=== PATIENT | female | born 1975 | race Caucasian/White ===

== ENCOUNTER → 2016-07-13 | Outpatient (REF) | payer OTHER | LOC: M SFHCLERA 11:31 | PROVIDERS: ATTEND Nurse Practitioner Family | DX: Z53.8 Procedure and treatment not carried out for other reasons (principal); J06.9 Acute upper respiratory infection, unspecified ==

== ENCOUNTER 2017-01-02 11:26 | Emergency (ER) | payer OTHER ==
[~2017-01-02] VITALS: Ht 162.6 cm; Wt 59.0 kg
[2017-01-02] MEDS ORDERED: MAGN400C2 PO (11:32)
[2017-01-02] MEDS ORDERED: AMIT10TA PO (11:32)
[2017-01-02] MEDS ORDERED: NS 1,000 ML IV ONE (13:15)
[2017-01-02] MEDS ORDERED: KETOROLAC 30 MG/ML VIAL (J1885) IV ONE (13:30)
[2017-01-02 13:51] LABS: BASO % 0.4 % (0.0-1.0); EOS # 0.2 K/mm3 (0.0-0.50); EOS % 2.7 % (0.0-3.0); LARGE UNSTAINED CELL # 0.1 K/mm3 (0.0-0.4); LARGE UNSTAINED CELL % 1.8 % (0.0-4.0); LYMPH % 30.3 % (24.0-44.0); MEAN CORPUSCULAR HEMOGLOBIN 32.3 pg (27.0-33.0); MEAN CORPUSCULAR HGB CONC 34.9 g/dl (32.0-36.5); MEAN CORPUSCULAR VOLUME 92.4 fl (80.0-96.0); MONO # 0.4 K/mm3 (0.0-0.8); MONO % 5.7 % (0.0-5.0); NEUTROPHILS # 3.8 K/mm3 (1.8-7.7); NEUTROPHILS % 59.1 % (36.0-66.0); PLATELET COUNT, AUTOMATED 213 k/mm3 (150-450); RED CELL DISTRIBUTION WIDTH 11.4 % (11.5-14.5); WHITE BLOOD COUNT 6.5 K/mm3 (4.0-10.0)
--- NOTE | 2017-01-02 14:01 | REP ---
Renal ultrasound: The kidneys are normal size. Right kidney measures 13.0 4.7 x 4.7 cm. Left kidney measures 12.8 x 7.4 x 6.2 cm. Renal cortical echogenicity is normal bilaterally. There is no right hydronephrosis. There is moderate left hydronephrosis. There are no renal calculi. No renal masses or cysts. Bladder ultrasound: With color Doppler ultrasound. There are no ureteral jets into the urinary bladder. There is a calculus in the distal right ureter at the UVJ. There is a calculus in the distal left ureter at the UVJ. No bladder wall polyps or masses are identified. Impression: There is a calculus in the distal right ureter at the UVJ and there is a calculus in the distal left ureter at the UVJ. There is moderate left hydronephrosis. There is no right hydronephrosis. Signed by Erasto Aguila MD 01/02/2017 01:52 P
[2017-01-02 14:24] LABS: ANION GAP 11 MEQ/L (8-16); BLOOD UREA NITROGEN 11 MG/DL (7-18); CALCIUM LEVEL 8.8 MG/DL (8.5-10.1); CARBON DIOXIDE LEVEL 24 MEQ/L (21-32); CHLORIDE LEVEL 106 MEQ/L (98-107); CREATININE FOR GFR 0.58 MG/DL (0.55-1.02); GLOMERULAR FILTRATION RATE > 60.0 (>58); GLUCOSE, FASTING 75 MG/DL (70-105); POTASSIUM SERUM 3.9 MEQ/L (3.5-5.1); SODIUM LEVEL 141 MEQ/L (136-145)
[2017-01-02] MEDS ORDERED: FLOM5CAP PO (14:50)
[2017-01-02] MEDS ORDERED: ZOFR4TAB3 PO (14:50)
[2017-01-02] MEDS ORDERED: NORCOTAB PO (14:50)
[2017-01-02] MEDS ORDERED: TAMSULOSIN 0.4 MG CAP PO ONE (15:00)
[2017-01-02 15:11] VITALS: BP 136/94
== END 2017-01-02 15:12 | disposition home or self-care (01) ==
LOC: M ED 11:26
DX: N20.1 Calculus of ureter (principal); F41.9 Anxiety disorder, unspecified; F32.9 Major depressive disorder, single episode, unspecified; Z79.899 Other long term (current) drug therapy; Z88.0 Allergy status to penicillin; Z88.5 Allergy status to narcotic agent
CPT/HCPCS: 76775; 80048; 81001; 81025; 85025; 96361; 96374; 99284; J1885

== ENCOUNTER 2017-01-08 22:48 | Emergency (ER) | payer OTHER ==
[~2017-01-08] VITALS: Ht 162.6 cm; Wt 59.0 kg
[~2017-01-08 22:48] MED LIST: AMIT10TA PO; FLOM5CAP PO; MAGN400C2 PO; NORCOTAB PO; ZOFR4TAB3 PO
[2017-01-09] MEDS ORDERED: predniSONE 20 MG TAB PO ONE
[2017-01-09] MEDS ORDERED: CIPR-249 PO (02:21)
[2017-01-09 02:31] VITALS: BP 143/79
== END 2017-01-09 02:33 | disposition home or self-care (01) ==
LOC: M ED 22:48
DX: L29.9 Pruritus, unspecified (principal); T36.95XA Adverse effect of unspecified systemic antibiotic, initial encounter; X58.XXXA Exposure to other specified factors, initial encounter; Y92.89 Other specified places as the place of occurrence of the external cause; Z79.899 Other long term (current) drug therapy

== ENCOUNTER → 2017-01-10 | Outpatient (REF) | payer OTHER ==
[~2017-01-10] MED LIST changes: +BACT800T5 PO; +CIPR-249 PO; +CIPR500T3 PO; +MULT1TAB18 PO; +TYLE650T35 PO; +VITATAB11 PO
[2017-01-10 14:16] LABS: CALCIUM OXALATE CRYSTALS LARGE
== END ==
LOC: M LAB REF 13:54
PROVIDERS: ATTEND Nurse Practitioner Women's Health
DX: N13.2 Hydronephrosis with renal and ureteral calculous obstruction (principal)

== ENCOUNTER → 2017-01-16 | Outpatient (REF) | payer OTHER ==
[2017-01-16 19:58] LABS: ANION GAP 8 MEQ/L (8-16); BLOOD UREA NITROGEN 12 MG/DL (7-18); CALCIUM LEVEL 9.4 MG/DL (8.5-10.1); CARBON DIOXIDE LEVEL 28 MEQ/L (21-32); CHLORIDE LEVEL 104 MEQ/L (98-107); CREATININE FOR GFR 0.73 MG/DL (0.55-1.02); GLOMERULAR FILTRATION RATE > 60.0 (>58); GLUCOSE, FASTING 74 MG/DL (70-105); POTASSIUM SERUM 4.9 MEQ/L (3.5-5.1); SODIUM LEVEL 140 MEQ/L (136-145)
[2017-01-16 19:59] LABS: CONTROL LINE HCG INT CTR LINE PRESENT
[2017-01-16 20:00] LABS: MEAN CORPUSCULAR HEMOGLOBIN 32.4 pg (27.0-33.0); MEAN CORPUSCULAR HGB CONC 34.7 g/dl (32.0-36.5); MEAN CORPUSCULAR VOLUME 93.6 fl (80.0-96.0); RED CELL DISTRIBUTION WIDTH 11.8 % (11.5-14.5)
[2017-01-16 20:01] LABS: INR 0.96
== END ==
LOC: M SMT 15:34
PROVIDERS: ATTEND Nurse Practitioner Women's Health
DX: Z01.812 Encounter for preprocedural laboratory examination (principal); N13.2 Hydronephrosis with renal and ureteral calculous obstruction

== ENCOUNTER 2017-01-21 14:05 | Day surgery (SDC) | payer OTHER ==
[~2017-01-21 14:05] MED LIST changes: -BACT800T5 PO; -CIPR500T3 PO; +CLINDAMYCIN 900 MG in APPROPRIATE DILUENT 1 EA IV ONE; -MULT1TAB18 PO; -TYLE650T35 PO; -VITATAB11 PO
[2017-01-21] MEDS ORDERED: VITATAB11 PO (14:37)
[2017-01-21] MEDS ORDERED: BACT800T5 PO ×2 (14:37→19:52)
[2017-01-21] MEDS ORDERED: MULT1TAB18 PO (14:37)
[2017-01-21] MEDS ORDERED: CONRAY-60 60% 50ML VIAL (Q9961) As Ordered ONE (15:46)
[2017-01-21] MEDS ORDERED: LR 1,000 ML IV ONE (17:15)
[2017-01-21] MEDS ORDERED: LIDOCAINE 2% INJ 100 MG/5 ML SDV (FOR ANES.) As Ordered ONE (17:45)
[2017-01-21] MEDS ORDERED: MIDAZOLAM INJ 2 MG/2 ML VIAL (J2250) As Ordered ONE (17:45)
[2017-01-21] MEDS ORDERED: ONDANSETRON 4MG/2ML VIAL (J2405) As Ordered ONE (17:45)
[2017-01-21] MEDS ORDERED: dexameTHASONE 4 MG/ML 1ML VIAL (J1100) As Ordered ONE (17:45)
[2017-01-21] MEDS ORDERED: fentaNYL 100 MCG/2 ML INJECTION (J3010) As Ordered ONE (17:45)
[2017-01-21] MEDS ORDERED: PROPOFOL 200 MG/20 ML VIAL As Ordered ONE (17:45)
[2017-01-21] MEDS ORDERED: ePHEDrine SULFATE 25 MG/5 ML(5MG/ML) SYRINGE As Ordered ONE (17:57)
[2017-01-21] MEDS ORDERED: KETOROLAC 60 MG/2 ML VIAL (J1885) As Ordered ONE (18:16)
--- NOTE | 2017-01-21 18:38 | REP ---
Clinical: Obstructing ureteral calculi. Technique: Real time intraoperative fluoroscopic imaging. Findings: Multiple fluoroscopic images demonstrate bilateral hydroureteronephrosis (left greater than right) and satisfactory bilateral ureteral stent placement. Total fluoroscopic time 1 minute 3 seconds. Impression: Status post bilateral ureteral stent placement. Signed by Jonathan Morton MD 01/21/2017 06:30 P
[2017-01-21] MEDS ORDERED: ONDANSETRON 4MG/2ML VIAL (J2405) IV PRN (18:45)
[2017-01-21] MEDS ORDERED: fentaNYL 100 MCG/2 ML INJECTION (J3010) IV PRN (18:45)
[2017-01-21] MEDS ORDERED: LR 1,000 ML IV SCH (18:45)
[2017-01-21] MEDS ORDERED: PERCOCET 5MG/325MG TAB PO PRN (18:45)
[2017-01-21] MEDS ORDERED: CIPR500T3 PO (18:49)
[2017-01-21] MEDS ORDERED: TYLE650T35 PO (18:49)
[2017-01-21 19:40] VITALS: BP 135/88
--- NOTE | 2017-01-22 09:06 | RO ---
DATE OF PROCEDURE: 01/21/2017 PREOPERATIVE DIAGNOSIS: Bilateral ureteral stones. POSTOPERATIVE DIAGNOSIS: Bilateral ureteral stones. SURGERY PERFORMED: Cystoscopy, plus bilateral retrograde pyelogram, plus bilateral ureteroscopy, plus bilateral basket extraction of stones, plus bilateral JJ-stent placement #6 [place] Cook stents. SURGEON: Dr. Johny Saldana CAFETERIA MANAGER: None. ANESTHESIA: General. COMPLICATIONS: None. ESTIMATED BLOOD LOSS: N/A. HISTORY OF PRESENT ILLNESS: This is a 41-year-old female patient that has bilateral kidney stones and a history of bilateral ureteral implantations back when she was a child. For this reason, she has consented for a cystoscopy, possible bilateral retrograde pyelogram, possible bilateral ureteroscopy, possible bilateral laser stone lithotripsy, possible basket extraction of stones, possible bilateral JJ stent placement. PROCEDURE DESCRIPTION: In a patient under general anesthesia in supine modified low lithotomy position after prepping and draping the area of concern, which included the entire genitalia and abdomen, we started by introducing a cystoscope 21 [place]an in diameter under video endoscopic guidance with a 30 degree lens. The urethra and bladder neck were totally normal. The bladder had no tumors, no stones, no foreign objects. Both ureteral orifices were seen. We then placed a 5 [place] Pollack catheter to the left ureteral orifice and did a retrograde pyelogram. You could see a stone in the distal ureter. At that moment in time, we passed a guidewire up to the kidney, took the Pollack catheter out, took the cystoscope out, and passed a semi-rigid ureteroscope up to the stone. With a 1.9 ZeroTip basket, we grabbed the stone and pulled it out of the body of the patient and sent it for biochemical analysis. We then proceeded to pass a ureteral access sheath 28 cm in length 12 [place] in diameter following the guidewire. We took the obturator out. We left the ureteral access sheath in the proximal ureter and the guidewire parallel to this one. Through that ureteral access sheath, we inserted a flexible ureteroscope and then performed a nephroscopy. Upper pole, mid pole and lower pole were actively explored. There were no stones left behind. We then did a retrograde ureteroscopy by pulling out the ureteroscope and ureteral access sheath. There were no stones in the ureter. At that moment in time, we placed the cystoscope back in again and following the guidewire we placed a 6 [place] Cook stent up to the kidney. Once it was in good position, we took the guide wire out. We could see the curl in the kidney and the curl in the bladder. We then proceeded to pass a 5 [place] Pollack catheter through the right ureteral orifice. We did a retrograde pyelogram. We could find a stone in the distal ureter. At that moment in time, passed a guidewire up to the kidney, took the Pollack catheter out and we then proceeded to remove the cystoscope and introduce a semi-rigid ureteroscope 7 [place]an in diameter under video endoscopic guidance. We entered the ureter parallel to the guidewire and found the stone. We grabbed the stone with the ZeroTip basket and pulled it out of the body of the patient. It was sent in a different container for biochemical analysis of right ureteral stone. We then proceeded to remove the semi-rigid ureteroscope and pass a ureteral access sheath up to the proximal ureter. We took out the obturator and we actively passed another flexible ureteroscope up to the kidney. Upper pole, mid pole and lower pole were examined with fluoroscopic guidance and also with endoscopic guidance with the flexible ureteroscope. There were no stones left. We then proceeded to do a formal ureteroscopy by removing the ureteroscope with the ureteral access sheath at the same time. There was no stones left behind in the right ureter. We then proceeded to actively to pass a cystoscope 21 [place]an in diameter following the guidewire on the right side. We passed another stent 6 [place] Cook. Once it was in good position, we took the guidewire out. We could see the curl in the kidney and the curl in the bladder. We then proceeded to empty the bladder and remove the cystoscope. PLAN: The patient will pass to recovery and then to the floor. She will go home today with antibiotic and pain medication and follow up at [facility] in 1-2 weeks to remove the JJ-stents. There were no complications. Both stones were sent for biochemical analysis.
== END 2017-01-21 19:50 | disposition home or self-care (01) ==
LOC: M SDC 14:05
PROVIDERS: ATTEND Urology
DX: N20.1 Calculus of ureter (principal); I35.1 Nonrheumatic aortic (valve) insufficiency; Z88.0 Allergy status to penicillin; Z88.1 Allergy status to other antibiotic agents; Z98.84 Bariatric surgery status; Z87.09 Personal history of other diseases of the respiratory system; Z86.79 Personal history of other diseases of the circulatory system
CPT/HCPCS: 52332; 52352; 74420; 82360; 88300; C1769; C1894; C2617; J1100; J1885; J2250; J2405; J3010; Q9961

== ENCOUNTER → 2017-07-10 | Outpatient (REF) | payer OTHER | LOC: M SFHCLUC 11:30 | DX: R53.81 Other malaise (principal) ==

== ENCOUNTER → 2017-07-21 | Outpatient (CLI) | payer OTHER | LOC: M RAD 12:57 | DX: Z12.31 Encounter for screening mammogram for malignant neoplasm of breast (principal) ==

== ENCOUNTER → 2017-12-29 | Outpatient (CLI) | payer OTHER | LOC: M LRY 11:11 | DX: S99.922A Unspecified injury of left foot, initial encounter (principal); M79.89 Other specified soft tissue disorders; X58.XXXA Exposure to other specified factors, initial encounter; Y92.9 Unspecified place or not applicable; M77.32 Calcaneal spur, left foot | CPT/HCPCS: 73630 ==

== ENCOUNTER → 2018-03-19 | Outpatient (CLI) | payer OTHER ==
[2018-03-19 07:57] LABS: BASO % 0.4 % (0.0-1.0); EOS # 0.2 10^3/uL (0.0-0.50); EOS % 3.3 % (0.0-3.0); IMMATURE GRANULOCYTE % 0.2 % (0-3.0); LYMPH # 1.8 10^3/uL (1.5-4.5); LYMPH % 39.1 % (24.0-44.0); MEAN CORPUSCULAR HEMOGLOBIN 32.2 pg (27.0-33.0); MEAN CORPUSCULAR HGB CONC 34.1 g/dl (32.0-36.5); MEAN CORPUSCULAR VOLUME 94.3 fl (80.0-96.0); MONO # 0.3 10^3/uL (0.0-0.8); MONO % 5.5 % (0.0-5.0); NEUTROPHILS # 2.4 10^3/uL (1.8-7.7); NEUTROPHILS % 51.5 % (36.0-66.0); PLATELET COUNT, AUTOMATED 187 10^3/uL (150-450); RED BLOOD COUNT 4.35 10^6/uL (4.00-5.40); RED CELL DISTRIBUTION WIDTH 11.6 % (11.5-14.5); WHITE BLOOD COUNT 4.6 10^3/uL (4.0-10.0)
[2018-03-19 08:29] LABS: ALT/SGPT 17 U/L (12-78); ANION GAP 6 MEQ/L (8-16); AST/SGOT 10 U/L (7-37); BLOOD UREA NITROGEN 10 MG/DL (7-18); CALCIUM LEVEL 8.5 MG/DL (8.5-10.1); CARBON DIOXIDE LEVEL 27 MEQ/L (21-32); CHLORIDE LEVEL 109 MEQ/L (98-107); CHOLESTEROL LEVEL 155 MG/DL (<200); CHOLESTEROL RISK RATIO 2.246 (<5); CPK CREATINE PHOSPHOKINASE 52 U/L (26-192); FREE T4 1.13 NG/DL (0.76-1.46); GLOMERULAR FILTRATION RATE > 60.0 (>58); GLUCOSE, FASTING 83 MG/DL (70-100); HDL CHOLESTEROL 69 MG/DL (>40); LDL CHOLESTEROL 74 MG/DL (<100); NON-HDL-C 86 MG/DL; POTASSIUM SERUM 4.1 MEQ/L (3.5-5.1); SODIUM LEVEL 142 MEQ/L (136-145); TRIGLYCERIDES LEVEL 61 MG/DL (<150)
== END ==
LOC: M LAB 07:24
DX: R00.2 Palpitations (principal); R60.9 Edema, unspecified; R07.89 Other chest pain
CPT/HCPCS: 84460

== ENCOUNTER → 2018-03-23 | Outpatient (CLI) | payer OTHER | LOC: M LRY 10:02 | DX: S99.921A Unspecified injury of right foot, initial encounter (principal); X58.XXXA Exposure to other specified factors, initial encounter; Y92.9 Unspecified place or not applicable; M77.31 Calcaneal spur, right foot; M85.871 Other specified disorders of bone density and structure, right ankle and foot | CPT/HCPCS: 73630 ==

== ENCOUNTER → 2018-04-06 | Outpatient (CLI) | payer OTHER | LOC: M LRY 09:09 | DX: J18.1 Lobar pneumonia, unspecified organism (principal) | CPT/HCPCS: 71046 ==

== ENCOUNTER → 2018-07-17 | Outpatient (REF) | payer OTHER ==
[~2018-07-17] MED LIST changes: +BACT800T5 PO; +CIPR500T3 PO; -CLINDAMYCIN 900 MG in APPROPRIATE DILUENT 1 EA IV ONE; +FLOM0.4C39 PO; -FLOM5CAP PO; +MULT1TAB18 PO; +TYLE650T35 PO; +VITATAB11 PO; +ZOFR4TAB14 PO; -ZOFR4TAB3 PO
== END ==
LOC: M SFHCLERA 14:04
PROVIDERS: ATTEND Nurse Practitioner Family
DX: N30.00 Acute cystitis without hematuria (principal)

== ENCOUNTER → 2018-07-20 | Outpatient (CLI) | payer OTHER ==
--- NOTE | 2018-07-20 18:37 | REP ---
Clinical: Cough . Comparison: 04/06/2018 in the . Technique: PA and lateral. Findings: The mediastinum and cardiac silhouette are normal. The lung nieto are clear and without acute consolidation, effusion, or pneumothorax. The skeletal structures are intact and normal. Impression: 1. No acute cardiopulmonary process. Electronically Signed by Jonathan Morton MD 07/20/2018 06:28 P
== END ==
LOC: M LRY 11:46
PROVIDERS: ATTEND Nurse Practitioner Family
DX: R05 Cough (principal)

== ENCOUNTER → 2018-07-28 | Outpatient (REF) | payer OTHER | LOC: M SFHCLERA 20:18 | PROVIDERS: ATTEND Nurse Practitioner Family | DX: J02.9 Acute pharyngitis, unspecified (principal); N30.01 Acute cystitis with hematuria ==

== ENCOUNTER → 2018-09-17 | Outpatient (REF) | payer OTHER ==
[~2018-09-17] MED LIST changes: +HYDR-3715 PO; -NORCOTAB PO
== END ==
LOC: M SFHCLERA 09:59
PROVIDERS: ATTEND Family Medicine
DX: R53.82 Chronic fatigue, unspecified (principal); Z98.84 Bariatric surgery status; Z53.9 Procedure and treatment not carried out, unspecified reason

== ENCOUNTER → 2018-09-18 | Outpatient (CLI) | payer OTHER ==
[2018-09-18 08:04] LABS: BASO % 0.8 % (0.0-1.0); EOS # 0.1 10^3/uL (0.0-0.50); EOS % 2.2 % (0.0-3.0); HEMATOCRIT 39.4 % (36.0-47.0); HEMOGLOBIN 13.5 g/dl (12.0-15.5); LYMPH # 1.9 10^3/uL (1.5-4.5); LYMPH % 37.7 % (24.0-44.0); MEAN CORPUSCULAR HEMOGLOBIN 31.3 pg (27.0-33.0); MEAN CORPUSCULAR HGB CONC 34.3 g/dl (32.0-36.5); MEAN CORPUSCULAR VOLUME 91.2 fl (80.0-96.0); MONO # 0.3 10^3/uL (0.0-0.8); MONO % 4.9 % (0.0-5.0); NEUTROPHILS # 2.8 10^3/uL (1.8-7.7); NEUTROPHILS % 54.2 % (36.0-66.0); PLATELET COUNT, AUTOMATED 231 10^3/uL (150-450); RED BLOOD COUNT 4.32 10^6/uL (4.00-5.40); WHITE BLOOD COUNT 5.1 10^3/uL (4.0-10.0)
[2018-09-18 08:28] LABS: ERYTHROCYTE SEDIMENTATION RATE 8 mm/hr (0-20)
[2018-09-18 08:39] LABS: ALBUMIN 3.8 GM/DL (3.2-5.2); ALT/SGPT 21 U/L (12-78); BILIRUBIN,TOTAL 0.5 MG/DL (0.2-1.0); BLOOD UREA NITROGEN 10 MG/DL (7-18); C REACTIVE PROTEIN QUANTITATIV < 0.30 MG/DL (0.00-0.30); CALCIUM LEVEL 8.7 MG/DL (8.5-10.1); CARBON DIOXIDE LEVEL 27 MEQ/L (21-32); CHLORIDE LEVEL 109 MEQ/L (98-107); CREATININE FOR GFR 0.55 MG/DL (0.55-1.30); FREE T4 1.13 NG/DL (0.76-1.46); GLOMERULAR FILTRATION RATE > 60.0 (>58); GLUCOSE, FASTING 78 MG/DL (70-100); POTASSIUM SERUM 4.2 MEQ/L (3.5-5.1); SODIUM LEVEL 141 MEQ/L (136-145); TOTAL PROTEIN 6.5 GM/DL (6.4-8.2)
[2018-09-18 09:16] LABS: TOTAL 25(OH) VITAMIN D 28.1 NG/ML (30.0-100.0); VITAMIN B12 LEVEL 494 PG/ML
[2018-09-18 09:17] LABS: FOLATE 22.1 NG/ML
[2018-09-20 10:17] LABS: COPPER PLASMA 98 ug/dL (72-166); ZINC PLASMA 91 ug/dL (56-134)
== END ==
LOC: M LAB 07:08
PROVIDERS: ATTEND Family Medicine
DX: R53.82 Chronic fatigue, unspecified (principal); Z98.84 Bariatric surgery status

== ENCOUNTER → 2018-09-29 | Outpatient (CLI) | payer OTHER ==
--- NOTE | 2018-09-29 08:29 | REP ---
MRI BRAIN WITHOUT CONTRAST: HISTORY: Vertigo. Multiple areas of increased signal intensity on T2-weighted images are present in the periventricular and subcortical white matter. These are predominately subcortical in location. There are no areas of abnormal signal intensity in the corpus callosum, brain stem or cerebellum. There is no intraparenchymal hemorrhage, infarct, mass or midline shift. The ventricular system is normal in appearance. There is no extracerebral collection. Mucosal thickening is present in the sinuses. IMPRESSION: There are multiple areas of increased signal intensity in the periventricular and subcortical white matter that are predominately subcortical in location. This is a nonspecific finding and can be seen in conditions such as migraine, collagen vascular disease, Lyme disease, sarcoid, B12 deficiency, vasculitis and atypical demyelinating disease. Electronically Signed by Lazarus Valentin MD 09/29/2018 08:40 A
== END ==
LOC: M RAD 06:29
PROVIDERS: ATTEND Family Medicine
DX: R93.0 Abnormal findings on diagnostic imaging of skull and head, not elsewhere classified (principal)

== ENCOUNTER → 2018-10-05 | Outpatient (CLI) | payer OTHER ==
[2018-10-08 00:06] LABS: ANGIOTENSIN 1 CONVERTING ENZYM 32 U/L (14-82); Lyme Disease IgG/IgM Antibodie <0.91 ISR (0.00-0.90); Lyme Disease IgM Ab Quantitati <0.80 index (0.00-0.79)
== END ==
LOC: M LAB 17:42
PROVIDERS: ATTEND Family Medicine
DX: R42 Dizziness and giddiness (principal)

== ENCOUNTER → 2019-01-14 | Outpatient (CLI) | payer OTHER ==
[2019-01-16 15:01] LABS: HPV HYBRID CAPTURE II Negative (Negative)
== END ==
LOC: M SMT 09:55
PROVIDERS: ATTEND Advanced Practice Midwife
DX: Z13.79 Encounter for other screening for genetic and chromosomal anomalies (principal)
CPT/HCPCS: 36415; 87624; G0123

== ENCOUNTER → 2019-01-21 | Outpatient (CLI) | payer OTHER ==
--- NOTE | 2019-01-22 07:44 | REPMRS ---
Patient History The patient states she had a clinical breast exam in 2018. Family history of unknown cancer in mother, colorectal cancer in paternal grandmother, colorectal cancer in paternal uncle, colorectal cancer in maternal aunt. Silicone gel implants in both breasts in 2014. Digital Mammo Screening Bilat: January 21, 2019 - Exam #: [id number] Bilateral CC and MLO view(s) were taken. Technologist: Fern Valladares, Technologist Prior study comparison: July 21, 2017, bilateral digital mammo screening bilat performed at [facility]. November 29, 2013, digital woman screen mammo, performed at [facility]. FINDINGS: There are scattered fibroglandular densities. The visualized implant margins are smooth. Breast parenchymal density pattern is essentially symmetric. No dominant mass, grouped microcalcification, or architectural distortion is evident on either side. 3-D tomosynthesis shows no additional findings. No significant changes when compared with prior studies. Assessment: BI-RADS/ACR category 2 mammogram. Benign Findings. Recommendation Routine screening mammogram of both breasts in 1 year (for women over age 40). This patient's Lifetime Breast Cancer RIsk is estimated at 6.5 %. This mammogram was interpreted with the aid of an FDA-approved computer-aided dectection system. Electronically Signed By: Erwin Worrell MD 01/22/19 0744
== END ==
LOC: M RAD 15:01
PROVIDERS: ATTEND Advanced Practice Midwife
DX: Z12.31 Encounter for screening mammogram for malignant neoplasm of breast (principal)

== ENCOUNTER → 2019-01-29 | Outpatient (REF) | payer OTHER ==
[2019-01-29 18:01] LABS: ALBUMIN 3.9 GM/DL (3.2-5.2); ALT/SGPT 18 U/L (12-78); BILIRUBIN,TOTAL 0.5 MG/DL (0.2-1.0); BLOOD UREA NITROGEN 10 MG/DL (7-18); CALCIUM LEVEL 9.3 MG/DL (8.5-10.1); CARBON DIOXIDE LEVEL 30 MEQ/L (21-32); CHLORIDE LEVEL 107 MEQ/L (98-107); CREATININE FOR GFR 0.64 MG/DL (0.55-1.30); GLOMERULAR FILTRATION RATE > 60.0 (>58); GLUCOSE, FASTING 62 MG/DL (70-100); POTASSIUM SERUM 4.6 MEQ/L (3.5-5.1); SODIUM LEVEL 142 MEQ/L (136-145); TOTAL PROTEIN 7.2 GM/DL (6.4-8.2)
[2019-01-29 18:15] LABS: AMORPHOUS SEDIMENT SMALL (NEGATIVE); APPEARANCE, URINE CLEAR (CLEAR); BACTERIA, URINE AUTO 3+ (NEGATIVE); BILIRUBIN, URINE AUTO NEGATIVE (NEGATIVE); BLOOD, URINE BLOOD NEGATIVE (NEGATIVE); COLOR, URINE YELLOW (YELLOW); GLUCOSE, URINE (UA) AUTO NEGATIVE (NEGATIVE); KETONE, URINE AUTO NEGATIVE (NEGATIVE); LEUKOCYTE ESTERASE, URINE AUTO 1+ (NEGATIVE); MUCUS, URINE SMALL (NEGATIVE); NITRITE, URINE AUTO NEGATIVE (NEGATIVE); PROTEIN, URINE AUTO NEGATIVE (NEGATIVE); RBC, URINE AUTO 1 /HPF (0-3); SPECIFIC GRAVITY URINE AUTO 1.012 (1.002-1.035); SQUAMOUS EPITHELIAL CELL UR AU 0 /HPF (0-6); UROBILINOGEN, URINE AUTO 0.2 mg/dL (0.0-2.0); WBC, URINE AUTO 6 /HPF (0-3)
== END ==
LOC: M SFHCLERA 10:46
PROVIDERS: ATTEND Family Medicine
DX: R10.11 Right upper quadrant pain (principal); M54.9 Dorsalgia, unspecified

== ENCOUNTER → 2019-02-04 | Outpatient (REF) | payer OTHER ==
[2019-02-04 12:24] LABS: APPEARANCE, URINE CLEAR (CLEAR); BACTERIA, URINE AUTO 1+ (NEGATIVE); BILIRUBIN, URINE AUTO NEGATIVE (NEGATIVE); BLOOD, URINE BLOOD NEGATIVE (NEGATIVE); COLOR, URINE YELLOW (YELLOW); GLUCOSE, URINE (UA) AUTO NEGATIVE (NEGATIVE); KETONE, URINE AUTO NEGATIVE (NEGATIVE); LEUKOCYTE ESTERASE, URINE AUTO 2+ (NEGATIVE); NITRITE, URINE AUTO NEGATIVE (NEGATIVE); PROTEIN, URINE AUTO NEGATIVE (NEGATIVE); RBC, URINE AUTO 1 /HPF (0-3); SPECIFIC GRAVITY URINE AUTO 1.006 (1.002-1.035); SQUAMOUS EPITHELIAL CELL UR AU 0 /HPF (0-6); UROBILINOGEN, URINE AUTO 0.2 mg/dL (0.0-2.0); WBC, URINE AUTO 11 /HPF (0-3)
== END ==
LOC: M SFHCLERA 11:24
PROVIDERS: ATTEND Family Medicine
DX: M54.9 Dorsalgia, unspecified (principal)

== ENCOUNTER → 2019-02-09 | Outpatient (CLI) | payer OTHER ==
--- NOTE | 2019-02-10 07:32 | REP ---
Clinical: Right upper quadrant pain. Technique: Real time espinoza scale and color evaluation using curved array transducer. Findings: Liver, spleen, pancreas are normal in contour, size, echogenicity, and overall appearance without focal hepatic, splenic, or pancreatic lesions identified. Splenic index equals 341. Gallbladder is normal and without gallstones, wall thickening, or pericholecystic fluid. No biliary ductal dilatation is appreciated and the common bile duct measures 2.7 mm diameter. The bilateral kidneys are normal in reniform shape without hydronephrosis. Right kidney measures 12.0 x 6.4 x 4.9 cm. Left kidney measures 11.1 x 4.9 x 5.2 cm. Abdominal aorta measures 2.0 cm maximal diameter and appears normal. No ascites visualized. Impression: Normal complete abdominal ultrasound. Electronically Signed by Jonathan Morton MD 02/10/2019 07:23 A
== END ==
LOC: M RAD 09:02
PROVIDERS: ATTEND Family Medicine
DX: R10.11 Right upper quadrant pain (principal); M54.9 Dorsalgia, unspecified

== ENCOUNTER → 2019-04-28 | Outpatient (CLI) | payer OTHER ==
[~2019-04-28] MED LIST changes: +ISOVUE-370 76% 100ML VIAL (Q9967) As Ordered ONE
--- NOTE | 2019-04-28 14:18 | REP ---
Intracranial CTA: 04/28/2019. Indication: Dizziness. Comparison: None. Technique: High resolution axial images of the intracranial circulation were performed following IV administration of 75 ml Isovue 370. Sagittal, coronal and 3-D reconstructions were provided. Findings: There is no intracranial high-grade stenosis, vessel occlusion, aneurysm or AVM. Predominantly origin of the right UX DESIGNER is noted. Paranasal sinus mucosal disease is present including evidence of acute inflammation within the left maxillary sinus. Impression: Unremarkable intracranial CTA. Paranasal sinus mucosal disease. Electronically Signed by Steven Sim DO 04/28/2019 02:10 P
== END ==
LOC: M RAD 13:17
DX: R42 Dizziness and giddiness (principal)
CPT/HCPCS: 70496; Q9967

== ENCOUNTER → 2019-08-31 | Outpatient (CLI) | payer OTHER ==
[~2019-08-31] MED LIST changes: -ISOVUE-370 76% 100ML VIAL (Q9967) As Ordered ONE
--- NOTE | 2019-09-01 17:02 | REP ---
Clinical: Left renal cyst. Technique: Real time espinoza scale ultrasound examination using curved array transducer. Findings: Right kidney is normal in contour, size, echogenicity, and reniform shape without hydronephrosis, nephrolithiasis, cystic or renal mass lesion. Kidney measures 10.8 x 6.0 x 3.8 cm. Left kidney is normal in contour, size, echogenicity and reniform shape without hydronephrosis, nephrolithiasis or renal mass lesion. A small 7 mm simple upper pole cyst is suggested (versus a focally prominent upper pole calyx). Kidney measures 9.6 x 4.0 x 5.0 cm. Bladder is normal and measures 6.3 x 5.0 x 2.7 cm. Impression: 1. Possible simple 7 mm left upper pole renal cyst versus a focally dilated calyx. Essentially normal renal ultrasound examination. Electronically Signed by Jonathan Morton MD 09/01/2019 04:53 P
== END ==
LOC: M RAD 10:46
PROVIDERS: ATTEND Family Medicine
DX: N28.1 Cyst of kidney, acquired (principal)

== ENCOUNTER → 2019-12-29 | Outpatient (REF) | payer OTHER ==
[~2019-12-29] MED LIST changes: +ACET650T61 PO; -TYLE650T35 PO
[2020-02-11 22:05] LABS: BLOOD UREA NITROGEN 11 MG/DL (7-18); CALCIUM LEVEL 9.1 MG/DL (8.5-10.1); CARBON DIOXIDE LEVEL 29 MEQ/L (21-32); CHLORIDE LEVEL 106 MEQ/L (98-107); CREATININE FOR GFR 0.73 MG/DL (0.55-1.30); GLOMERULAR FILTRATION RATE > 60.0 (>58); GLUCOSE, FASTING 78 MG/DL (70-100); POTASSIUM SERUM 4.5 MEQ/L (3.5-5.1); SODIUM LEVEL 139 MEQ/L (136-145)
== END ==
LOC: M PLALAB 15:51
PROVIDERS: ATTEND Family Medicine Sports Medicine
DX: I49.5 Sick sinus syndrome (principal); I10 Essential (primary) hypertension

== ENCOUNTER → 2019-12-29 | Outpatient (REF) | payer OTHER ==
[2020-02-11 22:04] LABS: CHOLESTEROL RISK RATIO 2.464 (<5)
== END ==
LOC: M PLALAB 15:48
PROVIDERS: ATTEND Nurse Practitioner Adult Health
DX: R00.1 Bradycardia, unspecified (principal); Z82.41 Family history of sudden cardiac death

== ENCOUNTER → 2020-02-15 | Outpatient (CLI) | payer OTHER ==
[2020-02-15 09:11] LABS: BLOOD UREA NITROGEN 10 MG/DL (7-18); CALCIUM LEVEL 8.8 MG/DL (8.5-10.1); CARBON DIOXIDE LEVEL 28 MEQ/L (21-32); CHLORIDE LEVEL 109 MEQ/L (98-107); CREATININE FOR GFR 0.63 MG/DL (0.55-1.30); FREE T4 1.09 NG/DL (0.76-1.46); GLOMERULAR FILTRATION RATE > 60.0 (>58); GLUCOSE, FASTING 79 MG/DL (70-100); POTASSIUM SERUM 4.2 MEQ/L (3.5-5.1); SODIUM LEVEL 142 MEQ/L (136-145)
== END ==
LOC: M LAB 07:33
PROVIDERS: ATTEND Internal Medicine Cardiovascular Disease
DX: E78.2 Mixed hyperlipidemia (principal); Z71.3 Dietary counseling and surveillance; I71.2 Thoracic aortic aneurysm, without rupture

== ENCOUNTER → 2020-03-16 | Outpatient (CLI) | payer OTHER ==
[2020-03-16 09:58] LABS: BLOOD UREA NITROGEN 11 MG/DL (7-18); CALCIUM LEVEL 8.7 MG/DL (8.5-10.1); CARBON DIOXIDE LEVEL 30 MEQ/L (21-32); CHLORIDE LEVEL 108 MEQ/L (98-107); CREATININE FOR GFR 0.69 MG/DL (0.55-1.30); GLOMERULAR FILTRATION RATE > 60.0 (>58); GLUCOSE, FASTING 83 MG/DL (70-100); POTASSIUM SERUM 4.4 MEQ/L (3.5-5.1); SODIUM LEVEL 141 MEQ/L (136-145)
== END ==
LOC: M LAB 08:33
PROVIDERS: ATTEND Internal Medicine Cardiovascular Disease
DX: I10 Essential (primary) hypertension (principal)

== ENCOUNTER → 2020-04-25 | Outpatient (CLI) | payer OTHER ==
--- NOTE | 2020-04-25 13:09 | REPMRS ---
Patient History The patient states she had a clinical breast exam in April 2020. Family history of unknown cancer in mother, colorectal cancer in paternal grandmother, colorectal cancer in paternal uncle, colorectal cancer in maternal aunt. Retro-pectoral implants. Silicone gel implants in both breasts. Digital Woman Screen Mammo: April 25, 2020 - Exam #: [id number] Bilateral CC and MLO view(s) were taken. Technologist: Shila Boss Technologist Prior study comparison: January 21, 2019, bilateral digital mammo screening bilat, performed at [facility]. July 21, 2017, bilateral digital mammo screening bilat, performed at [facility]. FINDINGS: The breast tissue is heterogeneously dense. This may lower the sensitivity of mammography. The visualized implant margins are smooth. Breast parenchymal density pattern is essentially symmetric. No dominant mass, grouped microcalcification, or architectural distortion is evident on either side. 3-D tomosynthesis shows no additional findings. No significant changes when compared with prior studies. Assessment: BI-RADS/ACR category 2 mammogram. Benign Findings. Recommendation Routine screening mammogram of both breasts in 1 year (for women over age 40). This patient's [facility] Lifetime Breast Cancer RIsk is estimated at %. This mammogram was interpreted with the aid of an FDA-approved computer-aided dectection system. Electronically Signed By: Erwin Worrell MD 04/25/20 1917
== END ==
LOC: M WHC 09:24
PROVIDERS: ATTEND Advanced Practice Midwife
DX: Z12.31 Encounter for screening mammogram for malignant neoplasm of breast (principal); Z80.9 Family history of malignant neoplasm, unspecified; Z98.82 Breast implant status

== ENCOUNTER → 2020-04-25 | Outpatient (CLI) | payer SELFPAY | LOC: M LABSMTC 10:04 | PROVIDERS: ATTEND Pediatrics | DX: Z11.59 Encounter for screening for other viral diseases (principal) ==

== ENCOUNTER → 2020-05-22 | Outpatient (CLI) | payer OTHER ==
--- NOTE | 2020-05-22 08:00 | REP ---
INDICATION: DIZZINESS AND GIDDINESS, ESS HYPERTENSION COMPARISON: None. TECHNIQUE: Real-time ultrasound evaluation and duplex Doppler interrogation of the extracranial carotid vasculature is performed. FINDINGS: Antegrade flow is observed in both vertebral arteries. Right carotid: The right common carotid artery is otherwise unremarkable. There minimal plaquing in the right carotid bulb and proximal ICA on two-dimensional scanning. Color flow and spectral Doppler interrogation are unremarkable on the right. Velocity chart right carotid: Right CCA PSV: 67 cm/S Right ICA PSV: 67 cm/S Right ICA EDV: 28 cm/S Right ECA PSV: 75 cm/S Right ICA/CCA ratio: 1.0 Left carotid: The left common carotid artery is otherwise unremarkable. There is minimal plaquing in the left carotid bulb and proximal ICA on two-dimensional scanning. The left internal carotid artery is tortuous. Color flow and spectral Doppler interrogation are unremarkable on the left. Velocity chart left carotid: Left CCA PSV: 71 cm/S Left ICA PSV: 80 cm/S Left ICA EDV: 128 cm/S Left ECA PSV: 40 cm/S Left ICA/CCA ratio: 1.8 IMPRESSION: Less than 50% category narrowing in the right internal carotid artery by Doppler velocity criteria. Minimal soft plaquing. Less than 50% category narrowing in the left ICA by Doppler velocity criteria. Tortuous left ICA. Minimal soft plaquing. <Electronically signed by Erwin Worrell > 05/22/20 0753
== END ==
LOC: M RAD 06:33
PROVIDERS: ATTEND Internal Medicine Cardiovascular Disease
DX: E78.2 Mixed hyperlipidemia (principal); R42 Dizziness and giddiness; I10 Essential (primary) hypertension

== ENCOUNTER → 2020-07-26 | Outpatient (CLI) | payer OTHER ==
[~2020-07-26] MED LIST changes: -AMIT10TA PO; +AMIT10TA7 PO
== END ==
LOC: M LABSMTC 09:54
PROVIDERS: ATTEND Family Medicine Sports Medicine
DX: Z20.828 Contact with and (suspected) exposure to other viral communicable diseases (principal); Z11.59 Encounter for screening for other viral diseases

== ENCOUNTER → 2020-08-18 | Outpatient (REF) | payer OTHER | LOC: M LAB REF 14:41 | PROVIDERS: ATTEND Physician Assistant | DX: D22.4 Melanocytic nevi of scalp and neck (principal); D22.5 Melanocytic nevi of trunk ==

== ENCOUNTER → 2020-11-09 | Outpatient (CLI) | payer OTHER ==
[2020-11-09 09:38] LABS: BASO % 0.8 % (0.0-1.0); EOS # 0.1 10^3/uL (0.0-0.5); HEMATOCRIT 40.7 % (36.0-47.0); HEMOGLOBIN 13.4 g/dl (12.0-15.5); LYMPH # 1.7 10^3/uL (1.5-5.0); LYMPH % 35.4 % (24.0-44.0); MEAN CORPUSCULAR HEMOGLOBIN 31.5 pg (27.0-33.0); MEAN CORPUSCULAR HGB CONC 32.9 g/dl (32.0-36.5); MEAN CORPUSCULAR VOLUME 95.8 fl (80.0-96.0); MONO # 0.3 10^3/uL (0.0-0.8); MONO % 6.7 % (2.0-8.0); NEUTROPHILS # 2.7 10^3/uL (1.5-8.5); NEUTROPHILS % 54.9 % (36.0-66.0); PLATELET COUNT, AUTOMATED 222 10^3/uL (150-450); RED BLOOD COUNT 4.25 10^6/uL (4.00-5.40); WHITE BLOOD COUNT 4.9 10^3/uL (4.0-10.0)
[2020-11-09 10:57] LABS: ALT/SGPT 18 U/L (12-78); BLOOD UREA NITROGEN 12 MG/DL (7-18); CARBON DIOXIDE LEVEL 29 MEQ/L (21-32); CHLORIDE LEVEL 108 MEQ/L (98-107); CHOLESTEROL LEVEL 189 MG/DL (<200); CHOLESTEROL RISK RATIO 2.554 (<5); CPK CREATINE PHOSPHOKINASE 61 U/L (26-192); CREATININE FOR GFR 0.66 MG/DL (0.55-1.30); FREE T4 0.96 NG/DL (0.76-1.46); GLOMERULAR FILTRATION RATE > 60.0 (>58); GLUCOSE, FASTING 78 MG/DL (70-100); HDL CHOLESTEROL 74 MG/DL (>40); LDL CHOLESTEROL 102 MG/DL (<100); NON-HDL-C 115 MG/DL; POTASSIUM SERUM 4.8 MEQ/L (3.5-5.1); SODIUM LEVEL 141 MEQ/L (136-145); TRIGLYCERIDES LEVEL 64 MG/DL (<150)
== END ==
LOC: M LAB 08:45
PROVIDERS: ATTEND Internal Medicine Cardiovascular Disease
DX: E78.2 Mixed hyperlipidemia (principal)

== ENCOUNTER 2021-01-08 11:33 | Emergency (ER) | payer OTHER ==
[~2021-01-08] VITALS: Ht 165.1 cm; Wt 66.0 kg
--- NOTE | 2021-01-08 12:32 | REP ---
INDICATION: pain. COMPARISON: Comparison chest 07/20/2018 TECHNIQUE: Four views of the right ribs with frontal view of the chest FINDINGS: The frontal view the chest is unchanged. There is no acute disease. Four views of the right ribs show no evidence of an acute fracture or destructive osseous lesion. IMPRESSION: Negative right rib series. <Electronically signed by Gabriel Arredondo > 01/08/21 0919
[2021-01-08] MEDS ORDERED: NAPR-837 PO (12:55)
[2021-01-08] MEDS ORDERED: NAPROXEN 250 MG TAB PO ONE (12:55)
[2021-01-08] MEDS ORDERED: CYCL-707 PO (12:55)
[2021-01-08 13:00] VITALS: BP 128/79
--- NOTE | 2021-01-08 21:39 | ECGEPIP ---
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
== END 2021-01-08 13:09 | disposition home or self-care (01) ==
LOC: M ED 11:33
DX: R07.89 Other chest pain (principal); R05 Cough; N28.9 Disorder of kidney and ureter, unspecified; Z87.442 Personal history of urinary calculi; Z79.899 Other long term (current) drug therapy; Z88.0 Allergy status to penicillin; Z88.1 Allergy status to other antibiotic agents; Z88.8 Allergy status to other drugs, medicaments and biological substances

== ENCOUNTER → 2021-03-15 | Outpatient (CLI) | payer OTHER ==
[~2021-03-15] MED LIST changes: +BUPR150T12 PO; +BUSP10TA; +CYCL-707 PO; +GABA600T4 PO; +LOSA50TA88 PO; +METO1TAB87 PO; +NAPR-837 PO; +VENL150C43 PO
== END ==
LOC: M LABSMTC 09:53
PROVIDERS: ATTEND Anesthesiology
DX: Z01.812 Encounter for preprocedural laboratory examination (principal); Z20.822 Contact with and (suspected) exposure to COVID-19

== ENCOUNTER 2021-03-20 11:42 | Day surgery (SDC) | payer OTHER ==
[~2021-03-20] VITALS: Ht 162.6 cm; Wt 67.1 kg
[~2021-03-20 11:42] MED LIST changes: +NS 1,000 ML IV ONE
--- OUTSIDE RECORDS SUMMARY | 2021-03-20 11:47 | CCD ---
Author Author [facility] Organization [facility] Address Unknown Phone Unavailable Care Team Providers Care Excavating Machine Operator Name Role Phone Melisa Kaufman Unavailable PROBLEMS Type Condition ICD9-CM Code [id number] Code Onset Dates Condition S tatus W/U Status Risk SNOMED Code Notes Problem Severe episode of recurrent major depressive disorder, without psychotic features F33.2 Active confirmed 39945783 Problem Bicuspid aortic valve Q23.1 Active confirmed 15475654 Problem Chronic fatigue R53.82 Active confirmed 8422 9001 Problem Personal history of gastric bypass Z98.84 Activ e confirmed 175354562 Problem Dyspareunia in female N94.10 Active confirmed 88592896 Problem History of gastric bypass Z98.84 Active confirmed 405286720 Problem Menopausal and female climacteric states N95.1 Active confirmed 963534481 Problem Ureteral stone with hydronephrosis N13.2 Activ e confirmed 407752283 Problem Aortic valve insufficiency, etiology of cardiac valve disease unspecified I35.1 Active confirmed 58235478 Problem Sinusitis, unspecified chronicity, unspecified location J32.9 Active confirmed 86144669 Problem Migraine without aura and without status migrain osus, not intractable G43.009 Active confirmed 901150677 Problem Essential hypertension I10 Active confirmed 06422693 ALLERGIES Allergen (clinical drug ingredient) Drug/Non Drug Allergy do cumented on EMR Reaction Allergy Type Onset Date Status Shannan Shannan Dyspnea Non Drug Allergy Active Passion fruit Passion Fruit Pruritis Non Drug Allergy Ac tive Penicillin (For Allergies Use Only) Anaphylaxis Drug Aller gy Active Levaquin Nausea/Vomiting Drug Allergy Active Cipro Rash Non Drug Allergy Active nitrofurantoin Nitrofurantoin(NDC Code:[address]-70) Anaphylaxis Drug Allergy Active ENCOUNTERS from 1975 to 2021-01-12 Encounter Location Date Provider Diagnosis [facility] [address] [facility] [phone] [place] [address] Dec, Melisa Kaufman Screening for malignant neop lasm of colon Z12.11 and Acute costochondritis M94.0 IMMUNIZATIONS Vaccine Route Administration Date Status Influenza Pharmacy Given Unknown Feb 23, 2019 Adminis tered Influenza 6mo & up Fluzone Unknown Mar 28, 2017 Other s SOCIAL HISTORY Tobacco Use: Social History Observation Description Date Details (start date - stop date) Former Smoker Sex Assigned At : Social History Observation Description Sex Assigned At Unknown Language: Question Answer Notes Languages spoken: Malaysian Tobacco Use: Question Answer Notes Are you a: former smoker How long has it been since you last smoked? > 10 years REASON FOR REFERRAL from 1975 to 2021-01-12 Reason 45 y old F for routine colon oscopy screening. Diagnosis 1 Screening for malignant neop lasm of colon (Z12.11) Referral Organization [facility] Referring Provider First Name Melisa Referring Provider Last Name Shae Referring Provider Specialty Family Medicine Referred Provider Bob Arechiga Referred Provider Specialty Gastroenterology Referral Priority Routine General Notes NathanNataliia 01/12/2021 10: 59:41 AM > [facility] Referral ID:[id number],Daniela 01/12/2021 11:05:07 AM > Sent VITAL SIGNS Weight 147.4 lbs Dec, Height 64 in Dec, BMI 25.30 kg/m2 Dec, Heart Rate 58 /min Dec, Respiratory Rate 18 /min Dec, Temperature 98.5 degrees Fahrenheit Dec, Oximetry 95 Dec, Blood pressure systolic 135 mm Hg Dec, Blood pressure diastolic 63 mm Hg Dec, MEDICATIONS Medication SIG (Take, Route, Frequency, Duration) Notes Start Da te End Date Status Losartan Potassium 50 MG 1 tablet Orally Once a day for 30 day(s) 7 5 mg total Not-Taking Multivitamins otc 1 tablet Orally once a day Active Cyclobenzaprine HCl 10 MG 1 tablet at bedtime as neede d Orally Once a day for 30 day(s) Active Wellbutrin XL 150 MG 1 tablet in the morning Orally Once a day for 90 days Active BuSpar 10 MG 1 tablet Orally Twice a day for 90 Active Gabapentin 400 MG 1 capsule Orally Once a day for 30 day(s) Active Fluticasone Propionate 50 MCG/ACT 1 spray in each nost ril Nasally Once a day for 30 day(s) September, Active Metoprolol Tartrate 25 MG 1 tablet with food Orally Twice a day for 90 day(s) Jul, Not-Taking Zofran 4 MG 1 tablet Orally Once a day for 30 day(s) Not-Taking Naproxen 500 MG 1 tablet with food or milk a s needed Orally every 12 hrs for 14 days Active B Complex - Orally Not-Taking Tylenol Extra Strength 500 MG 1 tablet as needed Orally every 6 hrs Active Estrace 0.1 MG/GM 1 gram Vaginal twice weekly for a month. Then once weekly for 30 day(s) Apr, Not-Taking Venlafaxine HCl ER 150 MG 1 capsule with food Orally Once a day for 90 day(s) Active Metoprolol Tartrate 25 MG 1 tablet with food Orally Twice a day Active PROCEDURES No Information RESULTS No Results REASON FOR VISIT [facility] ER F/U-SHORTNESS OF BREATH MEDICAL (GENERAL) HISTORY Type Description Date Medical History migraine headaches Medical History herniated disc lower back Medical History kidney stones Medical History AV regurgitation Medical History hx morbid obesity w/122# loss p bypass Medical History hx sleep apnea w/CPAP Medical History hx dysthymia Medical History environmental allergies Medical History fam hx ovarian cancer ? (mother) Medical History strong fam hx colon cancer both sides Medical History fibrocystic breast disease Surgical History appendectomy 09/2006 Surgical History D&C Surgical History Bilateral Ureter reconstruction Surgical History gastric bypass 11/05/12 Surgical History Essure procedure 10/2009 Surgical History breast augmentation 2014 Surgical History laparoscopic kidney stone removal with b il stent placement 01/2017 Surgical History back injections 01/28/2020 Hospitalization History surgically related Hospitalization History Chest Pain/SOB 01/08/2021 Goals Section No Information Health Concerns No Information MEDICAL EQUIPMENT No Information MENTAL STATUS No Information FUNCTIONAL STATUS No Information ASSESSMENTS Encounter Date Diagnosis Assessment Notes Treatment Notes Treatm ent Clinical Notes Dec, Screening for malignant neoplasm of colon (ICD-1 0 - Z12.11) Pt has not had colonoscopy before. She is agreeable to routine screening at this time. Dec, Acute costochondritis (ICD-10 - M94.0) Pain at chest wall is tender to palpation and worse with movement and has improved since starting the naproxen and flexeril she was prescribed at ED discharge. Pt denies any associated SOB, diaphoresis, or nausea. Pt to continue naproxen for at least 14 days to help resolve inflammation associated with costochondritis. Pt to return for re-evaluation if symptoms worsen or do not resolve after 2 weeks. PLAN OF TREATMENT Medication Medication Name Sig Start Date Stop Date Naproxen 500 MG 1 tablet with food or milk a s needed Orally every 12 hrs for 14 days Treatment Notes Assessment Notes Clinical Notes Screening for malignant neoplasm of colon Pt has not had colonoscopy before. She is agreeable to routine screening at this time. Acute costochondritis Pain at chest wall is tender to palpation and worse with movement and has improved since starting the naproxen and flexeril she was prescribed at ED discharge. Pt denies any associated SOB, diaphoresis, or nausea. Pt to continue naproxen for at least 14 days to help resolve inflammation associated with costochondritis. Pt to return for re-evaluation if symptoms worsen or do not resolve after 2 weeks. Referrals Referral Date Details 45 y old F for routine colon oscopy screening., Bob Arechiga Next Appt Details prn Reason:f/u as needed Follow Up:prnf/u as needed Insurance Providers Payer Name Payer Address Payer Phone Insured Name Patient Relati onship to Insured Coverage Start Date Coverage End Date [facility] [address] [facility] [id number] CROW MICHELLE self
--- OUTSIDE RECORDS SUMMARY | 2021-03-20 11:47 | CCD | Summary of Care ---
Author Author [facility] Organization [facility] Address Unknown Phone Unavailable Care Team Providers Care Line Server Name Role Phone Jennifer Washington MD PCP Reason for Referral * Physical Therapy (Routine) Referred By Contact Referred To Contact Status Reason Specialty Diagnoses / Procedures Brandon Barillas MD [address] [place] [id number] Email: [email or web address] Open Diagnoses Lumbar radicular pain Lumbar spondylosis P rocedures Physical Therapy Electronically signed by Brandon Barillas MD at Reason for Visit * Reason Comments Follow-up Lumbar pain Encounter Details Care Team Description Date Type Department Brandon Barillas MD [address] [place] [id number] Lumbar radicular pain (Primary Dx); Lumbar spondylosis; Sacral pain 12/26/2020 Office Visit [facility] [place], [address] [id number] Allergies Comments Active Allergy Reactions Severity Noted Date Ciprofloxacin Rash Low 03/24/2019 DIZZY Gabapentin Other (See 11/23/2020 Comments) Levofloxacin Nausea And 03/24/2019 Vomiting Nitrofuran Derivatives Anaphylaxis High 019 Passion Fruit Flavor Itching 03/24/2019 Penicillins Anaphylaxis High 04/30/2012 Shannan Oil Nausea Only 03/24/2019 documented as of this encounter (statuses as of 12/26/2020) Medications End Date Status Medication Sig Dispensed Refills Start Date Active Famotidine (PEPCID PO) Take 1 tablet 0 by mouth as needed Active Multiple Vitamin Take 1 tablet 0 (MULTIVITAMIN) tablet by mouth daily. Active calcium citrate Take 1 tablet 0 (CALCITRATE) 950 MG by mouth tablet daily. Active Biotin 1 MG CAPS Take by mouth 0 Active rizatriptan (MAXALT) 10 Take 10 mg by 0 MG tablet mouth as needed May repeat in 2 hours if needed Active vitamin B-12 Take 50 mcg 0 (CYANOCOBALAMIN) 100 MCG by mouth tablet daily. Active sucralfate (CARAFATE) 1 G Take 1 g by 0 tablet mouth Four times daily Active Fluticasone Propionate 50 1 spray by 0 09/18 MCG/ACT Nasal Suspension Nasal route 9 (FLONASE) as needed Active Topiramate 25 MG Oral Take 1 tablet 60 tablet 1 Tablet (Topamax) by mouth Two 0 Times Daily Additional Information Patient not taking. Reported on 07/03/2020 Active busPIRone HCl 10 MG Oral Take 5 mg by 0 12/27 Tablet (BUSPAR) mouth Two 0 Times Daily Active Metoprolol Succinate ER Take 25 mg by 0 25 MG Oral Tablet mouth daily Extended Release 24 Hour (TOPROL-XL) Active Rizatriptan Benzoate 10 1 tablet as 0 MG Oral Tablet (Maxalt) needed one time Orally Once a day Active Fluticasone Propionate 50 1 spray in 0 09/18 MCG/ACT Nasal Suspension each nostril 9 (FLONASE) Nasally Once a day for 30 day(s) Active Losartan Potassium 25 MG 1 tablet 0 02/01 Oral Tablet (COZAAR) Orally Once a 0 day Active Losartan Potassium 50 MG Take by mouth 0 02/17 Oral Tablet (COZAAR) 0 Active Meclizine HCl 25 MG Oral 0 Tablet (ANTIVERT) 0 Active Acetaminophen 500 MG Oral 1 tablet as 0 Tablet (TYLENOL) needed Orally every 6 hrs Active Venlafaxine HCl ER 150 MG TAKE ONE 0 05/19 Oral Capsule Extended CAPSULE BY 1 Release 24 Hour MOUTH EVERY (EFFEXOR-XR) DAY WITH FOOD Active buPROPion HCl ER (XL) 150 Take 150 mg 0 05/21 MG Oral Tablet Extended by mouth 1 Release 24 Hour every morning (WELLBUTRIN XL) Active Diclofenac Sodium 1 % Apply 2 g 50 g 0 External Gel (VOLTAREN) topically 1 Four times daily Additional Information Patient not taking. Reported on 11/23/2020 Active Gabapentin 100 MG Oral Take 1 90 capsule 1 Capsule capsule by 1 (Angelique)Indications: mouth Three Lumbar radicular pain times daily documented as of this encounter (statuses as of 12/26/2020) Active Problems Problem Noted Date Sacral pain 07/03/2020 Essential hypertension 12/01/2019 Sinus node dysfunction 12/01/2019 Lumbar radicular pain 11/26/2019 Overview: Formatting of this note might be differ ent from the original. Lumbar MRI 08-11-19, 1. *At L5-S1 there is disc space narrowing and a mild posterior disc osteophyte complex. Ther e is a normal variant conjoined left L5-S1 nerve root as they exit the theca l sac, and this causes the *left S1 nerve to course mildly more anteriorly within the left lateral recess than the contralateral S1 nerve. *Moderate l eft and mild right lateral recess stenosis with disc mildly impressing on the *descending left S1 nerve and minimally contacting the *descending ri ght S1 nerve. *Moderate left and mild to moderate right neural femoral s tenosis. 2. *L4-5 mild broad-based posterior dis c bulge with minimal right intraforaminal disc extension. Disc min imally contacts the anterior aspect of the *far right extraforaminal L4 ner ve and mildly contacts the descending *right L5 nerve within the r ight lateral recess. Lumbar spondylosis 11/26/2019 Overview: Formatting of this note might be differ ent from the original. Lumbar MRI 08-11-19, 1. *At L5-S1 there is disc space narrowing and a mild posterior disc osteophyte complex. Ther e is a normal variant conjoined left L5-S1 nerve root as they exit the theca l sac, and this causes the *left S1 nerve to course mildly more anteriorly within the left lateral recess than the contralateral S1 nerve. *Moderate l eft and mild right lateral recess stenosis with disc mildly impressing on the *descending left S1 nerve and minimally contacting the *descending ri ght S1 nerve. *Moderate left and mild to moderate right neural femoral s tenosis. 2. *L4-5 mild broad-based posterior dis c bulge with minimal right intraforaminal disc extension. Disc min imally contacts the anterior aspect of the *far right extraforaminal L4 ner ve and mildly contacts the descending *right L5 nerve within the r ight lateral recess. Back pain 04/30/2012 Radiculitis 04/30/2012 Overview: Formatting of this note might be differ ent from the original. WC, DOI 610, Kerri, WBC #[id number] , cc no. [id number], Lumbar MRI 08-11-19, 1. *At L5-S1 there is disc spa ce narrowing and a mild posterior disc osteophyte complex. There is a nor mal variant conjoined left L5-S1 nerve root as they exit the thecal sac, and this causes the *left S1 nerve to course mildly more anteriorly within the left lateral recess than the contralateral S1 nerve. *Moderate left and mild right lateral recess stenosis with disc mildly impressing on the *descending left S1 nerve and minimally contacting the *descending ri ght S1 nerve. *Moderate left and mild to moderate right neural femoral s tenosis. 2. *L4-5 mild broad-based posterior dis c bulge with minimal right intraforaminal disc extension. Disc min imally contacts the anterior aspect of the *far right extraforaminal L4 ner ve and mildly contacts the descending *right L5 nerve within the r ight lateral recess. Right hip pain documented as of this encounter (statuses as of 12/26/2020) Immunizations Name Administration Dates Next Due documented as of this encounter Social History Date Tobacco Use Types Packs/Day Years Used Former Smoker 0 6 Smokeless Tobacco: Never Used Comments: quit date: 06/2001 Comments Alcohol Use Standard Drinks/Week Yes 0 (1 standard drink = 0.6 o z pure alcohol) Alcohol Habits Answer Date Recorded How often do you have a drink containing alcohol? Monthly or less 12/29/2019 How many drinks containing alcohol do you have on 1 or 2 12/29/2019 a typical day when you are drinking? How often do you have six or more drinks on one Never 12/29/2019 occasion? Sex Assigned at Date Recorded Not on file Travel End Travel History Travel Start 12/24/2020 [place] 12/21/2020 12/21/2020 [place] 12/20/2020 Date Recorded COVID-19 Exposure Response 12/25/2020 8:01 AM EDT In the last month, have you been in contact with No / Unsure someone who was confirmed or suspected to have Coronavirus / COVID-19? documented as of this encounter Last Filed Vital Signs Reading Time Taken Comments Vital Sign 122/83 12/26/2020 8:24 AM EDT Blood Pressure 82 12/26/2020 8:24 AM EDT Pulse - - Temperature - - Respiratory Rate - - Oxygen Saturation - - Inhaled Oxygen Concentration 65.2 kg (143 lb 12.8 oz) 12/26/2020 8:24 AM EDT Weight 162.6 cm (5' 4") 12/26/2020 8:24 AM EDT Height 24.68 12/26/2020 8:24 AM EDT Body Mass Index documented in this encounter Progress Notes * Brandon Barillas MD - 12/26/2020 8:40 AM EDT Brandon Barillas M.D. Department of Physical Medicine and Rehabilitation [address] [place] [address] 12/26/2020 Evaluation for Danelle Thompson. She is a 45 y.o. year old female. Here today fo r follow-up from right L5 and right S1 transforaminal epidural blocks with signi ficant help to the buttock and leg pain. Unfortunately a long car ride definite ly got her into more trouble again, especially after sitting for a long time and bending she had a sharp jab of pain. If she needs the right L4 TFE done we can do that. They were last done in January. So I think that her discogenic rad icular pain down her back buttock and leg is coming from her disc and nerve root s at L4, L5 and S1. Although she lives in [place] we encouraged her to give physical therapy a tr ial again at least 3-5 visits to try to [facility] at [address]. In the past she was on gabapentin and found it made her dizzy, we are not sure what dose she was on so we will start at this time dose of 100 mg and stepwise move it up to 300 mg 3 times a day if possible. If she gets there we can change to 600 mg tablets so she can take half tablet 3 times a day initially and then if possible increase to 600 at some point in her day. Most likely starting with the bedtime dose so 300 AM, 300 p.m. for example supper, 600 milligrams bedtime would be our highest target for now. We reviewed that radiofrequency November 13 helps with the back pain component that we last did just the right side. SI blocks were diagnostic but not is therapeutically helpful as long as we woul d like. We reviewed that we were less impressed by those those were actually do ne July 31 and clarification and L5 and L4 were last done January 27 so we co uld to do L4 if we needed to at some point. Right now will be optimistic and try PT and gabapentin and see how she does with that otherwise history and physical as noted below. Allergy Nitrofuran derivatives, Penicillins, Gabapentin, Levaquin [levofloxacin] , Passion fruit flavor, Shannan oil, and Ciprofloxacin Past Medical History: Diagnosis Date Anxiety Bicuspid aortic valve Chronic kidney disease Depression Essential hypertension 12/01/2019 GERD (gastroesophageal reflux disease) Headache(784.0) Heart disease Hypertension Hypoglycemia Low back pain Lumbar radicular pain 11/26/2019 WC, CLOSED 2014, Lumbar MRI 08-11-19, 1. *At L5-S1 there is disc space narrowing and a mild posterior disc osteophyte complex. There is a normal variant conjoin ed left L5-S1 nerve root as they exit the thecal sac, and this causes the *left S1 nerve to course mildly more anteriorly within the left lateral recess than th e contralateral S1 nerve. *Moderate lef Lumbar spondylosis 11/26/2019 WC CLOSED 2014 , Lumbar MRI 08-11-19, 1. *At L5-S1 there is disc space narrowing and a mild posterior disc osteophyte complex. There is a normal variant conjoin ed left L5-S1 nerve root as they exit the thecal sac, and this causes the *left S1 nerve to course mildly more anteriorly within the left lateral recess than th e contralateral S1 nerve. *Moderate lef Sacral pain 07/03/2020 Sinus node dysfunction Sleep apnea Past Surgical History: Procedure Laterality Date APPENDECTOMY 09/2007 BLADDER SURGERY 11/1981 BREAST ENHANCEMENT SURGERY Bilateral 07/2014 ESSURE TUBAL LIGATION 12/2009 GASTRIC BYPASS 10/2012 KIDNEY STONE SURGERY Bilateral 2017 Current Outpatient Medications on File Prior to Visit Medication Sig Dispense Refill Acetaminophen 500 MG Oral Tablet (TYLENOL) 1 tablet as needed Orally ever y 6 hrs Biotin 1 MG CAPS Take by mouth buPROPion HCl ER (XL) 150 MG Oral Tablet Extended Release 24 Hour (WELLBU DEAN XL) Take 150 mg by mouth every morning busPIRone HCl 10 MG Oral Tablet (BUSPAR) Take 5 mg by mouth Two Times Radha ly calcium citrate (CALCITRATE) 950 MG tablet Take 1 tablet by mouth daily. Losartan Potassium 25 MG Oral Tablet (COZAAR) 1 tablet Orally Once a day Losartan Potassium 50 MG Oral Tablet (COZAAR) Take by mouth Metoprolol Succinate ER 25 MG Oral Tablet Extended Release 24 Hour (TOPRO L-XL) Take 25 mg by mouth daily Multiple Vitamin (MULTIVITAMIN) tablet Take 1 tablet by mouth daily. Venlafaxine HCl ER 150 MG Oral Capsule Extended Release 24 Hour (EFFEXOR- XR) TAKE ONE CAPSULE BY MOUTH EVERY DAY WITH FOOD Diclofenac Sodium 1 % External Gel (VOLTAREN) Apply 2 g topically Four ti mes daily (Patient not taking: Reported on 11/23/2020) 50 g 0 Famotidine (PEPCID PO) Take 1 tablet by mouth as needed Fluticasone Propionate 50 MCG/ACT Nasal Suspension (FLONASE) 1 spray by N robin route as needed 0 Fluticasone Propionate 50 MCG/ACT Nasal Suspension (FLONASE) 1 spray in e ach nostril Nasally Once a day for 30 day(s) (Patient not taking: Reported on 11/23/2020) Meclizine HCl 25 MG Oral Tablet (ANTIVERT) rizatriptan (MAXALT) 10 MG tablet Take 10 mg by mouth as needed May repea t in 2 hours if needed (Patient not taking: Reported on 11/23/2020) Rizatriptan Benzoate 10 MG Oral Tablet (Maxalt) 1 tablet as needed one ti me Orally Once a day (Patient not taking: Reported on 11/23/2020) sucralfate (CARAFATE) 1 G tablet Take 1 g by mouth Four times daily (Pat ient not taking: Reported on 11/23/2020) Topiramate 25 MG Oral Tablet (Topamax) Take 1 tablet by mouth Two Times D aily (Patient not taking: Reported on 07/03/2020) 60 tablet 1 vitamin B-12 (CYANOCOBALAMIN) 100 MCG tablet Take 50 mcg by mouth daily. (Patient not taking: Reported on 11/23/2020) No current facility-administered medications on file prior to visit. Family History Problem Relation Age of Onset Cancer Mother Hypertension Mother Thyroid disease Mother Hypertension Father High cholesterol Father Heart disease Maternal Grandmother Blood Clots Maternal Grandmother Heart disease Paternal Grandmother Blood Clots Paternal Grandmother Coronary art dis Brother Hypertension Brother Sleep apnea Brother High cholesterol Brother Sleep apnea Brother ROS: Eyes: ENT: Cardiovascular: Respiratory: GI: : Skin: Breast: Psychological : Heme: Immunizations:negative other than what is noted in History or Problem li no new Bladder incontinence no new bowel incontinence Visit Vitals BP 122/83 Pulse 82 Ht 1.626 m (5' 4") Wt 65.2 kg (143 lb 12.8 oz) BMI 24.68 kg/m PHYSICAL EXAMINATION , ASSESSMENT, AND PLAN: Physical exam: Pain severity: 1-2 now but yesterday greater than a 5 Location: Right low back to buttock Chest auscultation: Clear Heart: Without murmurs Lumbar exam: Flexion:70 degrees low back pain bilateral sacrum Extension: Right low back Strength testing, walking on toes and heels, strong but uncomfortable at her dominick k Straight leg raise, abnormal with left 50 degrees giving her left low back pain right 20 degrees giving buttock radicular pain Impression: 2 main components to her problem. Low back pain with radiofrequency helping low back pain component with medial branch blocks x2 diagnostically hel pful, we did the right RF, we will do the left RF if it were severe pain more o n the left. Right now it is more on the right so we already did that part. We c ould do it again in April as long as it how it is helpful greater than 50% fo r greater than 6 months. Buttock radicular pain is challenging, if she does not get adequate benefit wi th PT and gabapentin she can talk to Dr. Cabral to clarify surgical options are available. As she has a far lateral component at L4, also protrusion contactin g the traversing S1's but it might be a big surgery. But if she does not get adequate benefit at least understanding what that optio n is would make sense. We will do periodic transforaminal epidural blocks as long as it is helping grea ter than 50% greater than 3 months at a time. Greater than 35 time minutes total, 5 minutes time for documentation. Patient education /patient instructions: Reviewed with the patient, options for pain management including injections, and pain modulation with medications. ICD-10-CM 1. Lumbar radicular pain M54.16 Gabapentin 100 MG Oral Capsule (Neurontin) Physical Therapy 2. Lumbar spondylosis M47.816 Physical Therapy documented in this encounter Plan of Treatment Care Team Description Date Type Specialty Brandon Barillas MD [address] [place] [id number] [phone] 02/27/2021 Office Visit [facility] Health Maintenance Due Date Last Done Comments MMR Vaccines (1 of - 1974 Standard series) Varicella Vaccines (1 of 1974 2 - 2-dose childhood series) DTaP,Tdap,and Td Vaccines 1980 (1 - Tdap) HIV Screening 1986 Cervical Cancer Screening 1994 5 years Influenza Vaccine 02/16/2021 03/16/2020, 02/23/2019, 02/23/2019 Pneumococcal Vaccine: 65+ 2038 Years (1 of - PPSV23) COVID-19 Vaccine Completed 09/04/2020, 08/04/2020 HIB Vaccines Aged Out No longer eligible based on patient's age to complete this topic Hepatitis A Vaccines Aged Out No longer eligibl e based on patient's age to complete this topic Hepatitis B Vaccines Aged Out No longer eligibl e based on patient's age to complete this topic IPV Vaccines Aged Out No longer eligible based on patient's age to complete this topic Pneumococcal Vaccine: Aged Out No longer eligib le based on patient's age to Pediatrics (0 to 5 Years) complete this topic and At-Risk Patients (6 to 64 Years) documented as of this encounter Results Not on filedocumented in this encounter Visit Diagnoses Diagnosis Lumbar radicular pain - Primary Thoracic or lumbosacral neuritis or rad iculitis, unspecified Lumbar spondylosis Lumbosacral spondylosis without myelopa thy Sacral pain Disorders of sacrum documented in this encounter
--- OUTSIDE RECORDS SUMMARY | 2021-03-20 11:47 | CCD | Continuity of Care Document ---
Author Author [facility] Organization Unknown Address [address] [facility], [address] [place] [address] Phone [phone] Care Team Providers Care Soil Field Technician Name Role Phone Marlon Blake M.D AUTM Jennifer Washington M.D. [facility] [phone] Melisa Kaufman M.D. AUTM [phone] Problems Active Problems Provider Date Essential hypertension ERROL Maria Onset: Social History Type Date Description Comments Sex Unknown Cigarette Use Former ETOH Use Rarely Recreational Drug Use Denies Drug Use Tobacco Use Start: Unknown End: Unknown Patient is a former smoker quit 2001 Allergies and adverse reactions Active Allergies Criticality Reaction | Severity Comments Date Sulfa Unable to assess criticality 01/14/2019 Penicillin Unable to assess criticality 01/14/2019 Cipro Unable to assess criticality 01/14/2019 Levaquin Unable to assess criticality 02/27/2021 Nitrofurantoin Unable to assess criticality 02/27/2021 Inactive Allergies NKDA Unable to assess criticality 01/14/2019 Medications Active Medications SIG Qnty Indications Ordering Provide r Date Miralax 17GM/Scoop Powder use as instructed by doctor for bowel prep 510gm Z12.11 Bob Arechiga MD 02/27/[address] take 4 tabs by mouth prior to procedure per instructions. 4tabs Z12.11 Bob Arechiga MD 02/27/2021 Venlafaxine HCL ER 150mg Caps ER 2 4HR 1c/d Unknown Buspirone HCL 10mg Tablets 1t /bid Unknown Losartan 75MG 1t/d Unknown Metoprolol Succinate ER 25mg Tablets ER 24HR 1t/d Unknown Zofran 4mg Tablets 1t/prn Unknown Gabapentin 400mg Capsules 2c/ bid Unknown Wellbutrin XL 300mg Tablets ER 24HR Daily Unknown Miralax 17GM/Scoop Powder take 17 grams by mouth once daily. 510units Bob Arechiga MD Immunizations Description No Information Available Vital Signs Date Vital Result Comment 02/27/2021 1:55pm BP Systolic 110 mmHg BP Diastolic 78 mmHg Height 64 inches 5'4" Weight 153.00 lb BMI (Body Mass Index) 26.3 kg/m2 [place] Body Weight 120 lb Weight 69.401 kg BSA (Body Surface Area) 1.75 m2 05/06/2019 1:56pm Height 64 inches 5'4" Weight 135.00 lb BMI (Body Mass Index) 23.2 kg/m2 [place] Body Weight 120 lb Weight 61.236 kg BSA (Body Surface Area) 1.66 m2 Results Description No Information Available Procedures Date Code Description Status 01/21/2019 [id number] Mammogram Completed Medical Devices Description No Information Available Encounters Description No Information Available Assessments Date Code Description Provider 02/27/2021 Z12.11 Encounter for screening for tasha gnant neoplasm of colon ERROL Maria 02/27/2021 Z80.0 Family history of malignant neop lasm of digestive organs ERROL Maria 02/27/2021 K59.00 Constipation, unspecified ERROL Valdivia Plan of Treatment 02/27/2021 - ERROL Maria* Z12.11 Encounter for screening for malignant neoplasm of colon * Z80.0 Family history of malignant neoplasm of digestive organs * K59.00 Constipation, unspecified * * New Medication:* Miralax 17 GM/Scoop * Dulcolax 5 mg * New Orders:* Colonoscopy, Ordered: 02/27/21 * Comments:* Will arrange for colonoscopy. Reviewed risks and benefits of the procedure, as well as other options, with the patient. Bowel prep procedure was discussed with patient, as well as risks and side effects associated with the bowel prep. Patient verbalized understanding of all of the above and is in agreement to proceed. Patient will seek medical attention for any acute changes. Will monitor. * Follow up:* As scheduled, sooner if needed. Functional Status Description No Information Available Mental Status Description No Information Available Referrals Refer to Reason for Referral Status Appt Date Boom Carrasco M.D. Z12.11-ENCOUNTER FOR SCREEN ING FOR MALIGNANT NEOPLASM OF COLON Scheduled 02/27/2021 [facility] [address] [facility], [place] [address] [phone]
--- OUTSIDE RECORDS SUMMARY | 2021-03-20 11:47 | CCD ---
Author Author [facility] Organization [facility] Address Unknown Phone Unavailable Care Team Providers Care Political Advisor Name Role Phone Melisa Kaufman Unavailable PROBLEMS Type Condition ICD9-CM Code NAM13-EP Code Onset Dates Condition S tatus W/U Status Risk SNOMED Code Notes Problem Severe episode of recurrent major depressive disorder, without psychotic features F33.2 Active confirmed 22889658 Problem Bicuspid aortic valve Q23.1 Active confirmed 43125982 Problem Chronic fatigue R53.82 Active confirmed 8422 9001 Problem Personal history of gastric bypass Z98.84 Activ e confirmed 374467701 Problem Dyspareunia in female N94.10 Active confirmed 35770611 Problem History of gastric bypass Z98.84 Active confirmed 182979636 Problem Menopausal and female climacteric states N95.1 Active confirmed 778032719 Problem Ureteral stone with hydronephrosis N13.2 Activ e confirmed 101168324 Problem Aortic valve insufficiency, etiology of cardiac valve disease unspecified I35.1 Active confirmed 20026810 Problem Sinusitis, unspecified chronicity, unspecified location J32.9 Active confirmed 75904952 Problem Migraine without aura and without status migrain osus, not intractable G43.009 Active confirmed 939300185 Problem Essential hypertension I10 Active confirmed 58354133 ALLERGIES Allergen (clinical drug ingredient) Drug/Non Drug Allergy do cumented on EMR Reaction Allergy Type Onset Date Status Shannan Shannan Dyspnea Non Drug Allergy Active Passion fruit Passion Fruit Pruritis Non Drug Allergy Ac tive Penicillin (For Allergies Use Only) Anaphylaxis Drug Aller gy Active Levaquin Nausea/Vomiting Drug Allergy Active Cipro Rash Non Drug Allergy Active nitrofurantoin Nitrofurantoin(NDC Code:[address]-59) Anaphylaxis Drug Allergy Active ENCOUNTERS from 1973 to 2021-01-12 Encounter Location Date Provider Diagnosis [facility] [address] [phone] [place] [address] Dec, Melisa Kaufman IMMUNIZATIONS Vaccine Route Administration Date Status Influenza Pharmacy Given Unknown Feb 23, 2019 Adminis tered Influenza 6mo & up Fluzone Unknown Mar 28, 2017 Other s SOCIAL HISTORY Tobacco Use: Social History Observation Description Date Details (start date - stop date) Former Smoker Sex Assigned At : Social History Observation Description Sex Assigned At Unknown Language: Question Answer Notes Languages spoken: Malay Tobacco Use: Question Answer Notes Are you a: former smoker How long has it been since you last smoked? > 10 years REASON FOR REFERRAL No Information VITAL SIGNS No information MEDICATIONS Medication SIG (Take, Route, Frequency, Duration) [...] Information RESULTS No Results REASON FOR VISIT Referral MEDICAL (GENERAL) HISTORY Type Description Date Medical [...] No Information FUNCTIONAL STATUS No Information ASSESSMENTS No Information PLAN OF TREATMENT Medication Medication Name Sig Start Date Stop Date Naproxen 500 MG 1 tablet with food or milk a s needed Orally every 12 hrs for 14 days Insurance Providers Payer Name Payer Address Payer Phone Insured Name Patient Relati onship to Insured Coverage Start Date Coverage End Date [facility] [address] [facility] [phone] CROW MICHELLE MAY self
--- OUTSIDE RECORDS SUMMARY | 2021-03-20 11:47 | CCD ---
Author Author [facility] Organization [facility] Address Unknown Phone Unavailable Care Team Providers Care Pipe Maker Name Role Phone Melisa Kaufman Unavailable PROBLEMS Type Condition ICD9-CM Code QNE13-LI Code Onset Dates Condition S tatus W/U Status Risk SNOMED Code Notes Problem Ureteral stone with hydronephrosis N13.2 Activ e confirmed 829358482 Problem Personal history of gastric bypass Z98.84 Activ e confirmed 170399833 Problem Bicuspid aortic valve Q23.1 Active confirmed 31747047 Problem Aortic valve insufficiency, etiology of cardiac valve disease unspecified I35.1 Active confirmed 92298155 Problem Chronic fatigue R53.82 Active confirmed 8422 9001 Problem Menopausal and female climacteric states N95.1 Active confirmed 379693907 Problem Severe episode of recurrent major depressive disorder, without psychotic features F33.2 Active confirmed 85694650 Problem Lumbar spondylosis M47.816 Active confirmed 781173106 Problem History of gastric bypass Z98.84 Active confirmed 795861686 Problem Sinusitis, unspecified chronicity, unspecified location J32.9 Active confirmed 11075089 Problem Migraine without aura and without status migrain osus, not intractable G43.009 Active confirmed 999242719 Problem Essential hypertension I10 Active confirmed 55301503 Problem Dyspareunia in female N94.10 Active confirmed 39995834 ALLERGIES Allergen (clinical drug ingredient) Drug/Non Drug Allergy do cumented on EMR Reaction Allergy Type Onset Date Status Shannan Shannan Dyspnea Non Drug Allergy Active Passion fruit Passion Fruit Pruritis Non Drug Allergy Ac tive Penicillin (For Allergies Use Only) Anaphylaxis Drug Aller gy Active Levaquin Nausea/Vomiting Drug Allergy Active Cipro Rash Non Drug Allergy Active nitrofurantoin Nitrofurantoin([facility] Code:[address]-87) Anaphylaxis Drug Allergy Active ENCOUNTERS from 1973 to 2021-01-24 Encounter Location Date Provider Diagnosis [facility] [address] [phone] [place] [address] Jan, Melisa Kaufman Lumbar radicular pain M54.16 IMMUNIZATIONS Vaccine Route Administration Date Status Influenza Pharmacy Given Unknown Feb 23, 2019 Adminis tered Influenza 6mo & up Fluzone Unknown Mar 28, 2017 Other s SOCIAL HISTORY Tobacco Use: Social History Observation Description Date Details (start date - stop date) Former Smoker Sex Assigned At : Social History Observation Description Sex Assigned At Unknown Language: Question Answer Notes Languages spoken: Maltese Tobacco Use: Question Answer Notes Are you a: former smoker How long has it been since you last smoked? > 10 years REASON FOR REFERRAL from 1973 to 2021-01-24 Reason 45 y old F with lower back p ain. Diagnosis 1 Radiculopathy, lumbar region (M54.16) Referral Organization [facility] Referring Provider First Name Melisa Referring Provider Last Name Shae Referring Provider Specialty Family Medicine Referred Provider Specialty Physical Therapist Referral Priority Routine General Notes Melisa Kaufman 01/22/2021 5:1 2:22 PM > [facility], pt is seeing Loli Daily [phone], M54.16.Fax number [phone] VITAL SIGNS No information MEDICATIONS Medication SIG [...] Information RESULTS No Results REASON FOR VISIT referral MEDICAL (GENERAL) HISTORY Type Description Date Medical [...] Notes Treatment Notes Treatm ent Clinical Notes Jan, Lumbar radicular pain (ICD-10 - M54.16) PLAN OF TREATMENT Medication Medication Name Sig Start Date Stop Date Naproxen 500 MG 1 tablet with food or milk a s needed Orally every 12 hrs for 14 days Referrals Referral Date Details 45 y old F with lower back p ain. Insurance Providers Payer Name Payer Address Payer Phone Insured Name Patient Relati onship to Insured Coverage Start Date Coverage End Date [facility] [address] [facility] [phone] CROW MICHELLE MAY self
--- OUTSIDE RECORDS SUMMARY | 2021-03-20 11:48 | CCD ---
Author Author [facility] Address Unknown Phone Unavailable Care Team Providers [facility] [employer] Toll Collector Name Role Phone BRENDEN, Jimmy DEL ROSARIOEL [employer] PROFESSIONAL Unavailable Unavailable BRENDEN, T DUDLEY [employer]AIL [employer]S PROFESSIONAL Unavailable Unavailable BRENDEN, T DUDLEY RETAIL [employer]S PROFESSIONAL Unavailable Unavailable BRENDEN, T DUDLEY RETAIL [employer]S PROFESSIONAL Unavailable Unavailable BRENDEN, T DUDLEY RETAIL [employer]S PROFESSIONAL Unavailable Unavailable BRENDEN, T DUDLEY RETAIL [employer]S PROFESSIONAL Unavailable Unavailable BRENDEN, T DUDLEY [employer]AIL [employer]S PROFESSIONAL Unavailable Unavailable BRENDEN, T DUDLEY RETAIL [employer]S PROFESSIONAL Unavailable Unavailable BRENDEN, T DUDLEY RETAIL [employer]S PROFESSIONAL Unavailable Unavailable BRENDEN, T DUDLEY [employer]AIL [employer]S PROFESSIONAL Unavailable Unavailable BRENDEN, T DUDLEY [employer]AIL [employer]S PROFESSIONAL Unavailable Unavailable BRENDEN, T DUDLEY RETAIL [employer]S PROFESSIONAL Unavailable Unavailable BRENDEN, T DUDLEY RETAIL [employer]S PROFESSIONAL Unavailable Unavailable BRENDEN, T DUDLEY [employer]AIL [employer]S PROFESSIONAL Unavailable Unavailable BRENDEN, T DUDLEY RETAIL [employer]S PROFESSIONAL Unavailable Unavailable BRENDEN, T DUDLEY [employer]AIL [employer]S PROFESSIONAL Unavailable Unavailable BRENDEN, T DUDLEY RETAIL [employer]S PROFESSIONAL Unavailable Unavailable BRENDEN, T DUDLEY RETAIL [employer]S PROFESSIONAL Unavailable Unavailable BRENDEN, T DUDLEY [employer]AIL [employer]S PROFESSIONAL Unavailable Unavailable BRENDEN, T DUDLEY [employer] PROFESSIONAL Unavailable Unavailable BRNEDEN, T DUDLEY [employer]AIL [employer]S PROFESSIONAL Unavailable Unavailable BRENDEN, T DUDLEY [employer]AIL [employer]S PROFESSIONAL Unavailable Unavailable BRENDEN, T DUDLEY [employer]AIL [employer]S PROFESSIONAL Unavailable Unavailable BRENDEN, T DUDLEY [employer]AIL [employer]S PROFESSIONAL Unavailable Unavailable BRENDEN, T DUDLEY [employer]AIL [employer]S PROFESSIONAL Unavailable Unavailable BRENDEN, T DUDLEY [employer]AIL [employer]S PROFESSIONAL Unavailable Unavailable BRENDEN, T DUDLEY [employer]AIL [employer]S PROFESSIONAL Unavailable Unavailable BRENDEN, T DUDLEY [employer]AIL [employer]S PROFESSIONAL Unavailable Unavailable BRENDEN, T DUDLEY [employer]AIL [employer]S PROFESSIONAL Unavailable Unavailable BRENDEN, T DUDLEY [employer]AIL [employer]S PROFESSIONAL Unavailable Unavailable BRENDEN, T DUDLEY [employer]AIL [employer]S PROFESSIONAL Unavailable Unavailable BRENDEN, T DUDLEY [employer]AIL [employer]S PROFESSIONAL Unavailable Unavailable BRENDEN, T DUDLEY [employer]AIL [employer]S PROFESSIONAL Unavailable Unavailable BRENDEN, T DUDLEY [employer]AIL [employer]S PROFESSIONAL Unavailable Unavailable BRENDEN, T DUDLEY [employer]AIL [employer]S PROFESSIONAL Unavailable Unavailable BRENDEN, T DUDLEY [employer]AIL [employer]S PROFESSIONAL Unavailable Unavailable BRENDEN, T DUDLEY RETAIL [employer]S PROFESSIONAL Unavailable Unavailable BRENDEN, T DUDLEY [employer]AIL [employer]S PROFESSIONAL Unavailable Unavailable BRENDEN, T DUDLEY [employer] PROFESSIONAL Unavailable Unavailable ADONAY JURADO MD Unavailable Unavailable ADONAY JURADO MD Unavailable Unavailable ADONAY JURADO MD Unavailable Unavailable ADONAY JURADO MD Unavailable Unavailable ADONAY JURADO MD Unavailable Unavailable ADONAY JURADO MD Unavailable Unavailable ADONAY JURADO MD Unavailable Unavailable ADONAY JURADO MD Unavailable Unavailable ADONAY JURADO MD Unavailable Unavailable Cristina, M Natalia PA Unavailable Unavailable Cristina, M Natalia PA Unavailable Unavailable Cristina, M Natalia PA Unavailable Unavailable Cristina, M Natalia PA Unavailable Unavailable Cristina, M Natalia PA Unavailable Unavailable Cristina, M Natalia PA Unavailable Unavailable Cristina, M Natalia PA Unavailable Unavailable Cristina, M Natalia PA Unavailable Unavailable Cristina, M Natalia PA Unavailable Unavailable Cristina, M Natalia PA Unavailable Unavailable Cristina, M Natalia PA Unavailable Unavailable Cristina, M Natalia PA Unavailable Unavailable Cristina, M Natalia PA Unavailable Unavailable Cristina, M Natalia PA Unavailable Unavailable Cristina, M Natalia PA Unavailable Unavailable Cristina, M Natalia PA Unavailable Unavailable Cristina, M Natalia PA Unavailable Unavailable Cristina, M Natalia PA Unavailable Unavailable Cristina, M Natalia PA Unavailable Unavailable Cristina, M Natalia PA Unavailable Unavailable Cristina, M Natalia PA Unavailable Unavailable Cristina, M Natalia PA Unavailable Unavailable Cristina, M Natalia PA Unavailable Unavailable Cristina, M Natalia PA Unavailable Unavailable Cristina, M Natalia PA Unavailable Unavailable Cristina, M Natalia PA Unavailable Unavailable Cristina, M Natalia PA Unavailable Unavailable Cristina, M Natalia PA Unavailable Unavailable Cristina, M Natalia PA Unavailable Unavailable Cristina, M Natalia PA Unavailable Unavailable Cristina, M Natalia PA Unavailable Unavailable Cristina, M Natalia PA Unavailable Unavailable Cristina, M Natalia PA Unavailable Unavailable Cristina, M Natalia PA Unavailable Unavailable Cristina, M Natalia PA Unavailable Unavailable Cristina, M Natalia PA Unavailable Unavailable Cristina, M Natalia PA Unavailable Unavailable Cristina, M Natalia PA Unavailable Unavailable Cristina, M Natalia PA Unavailable Unavailable Cristina, M Natalia PA Unavailable Unavailable Cristina, M Natalia PA Unavailable Unavailable Cristina, M Natalia PA Unavailable Unavailable Cristina, M Natalia PA Unavailable Unavailable Cristina, M Natalia PA Unavailable Unavailable Cristina, M Natalia PA Unavailable Unavailable Cristina, M Natalia PA Unavailable Unavailable Marlon Blake MD Unavailable Unavailabl e Jovany-Marlon Wong MD Unavailable Unavailabl e Jovany-Marlon Wong MD Unavailable Unavailabl e Jovany-Marlon Wong MD Unavailable Unavailabl e Marlon Blake MD Unavailable Unavailabl e Jovany-Marlon Wong MD Unavailable Unavailabl e Jovany-Marlon Wong MD Unavailable Unavailabl e Jovany-Marlon Wong MD Unavailable Unavailabl e Jovany-Marlon Wong MD Unavailable Unavailabl e Jovany-Marlon Wong MD Unavailable Unavailabl e Jovany-JoshromMarlon roland MD Unavailable Unavailabl e Jovany-JoshromiMarlon MD Unavailable Unavailabl e Marlon Blake MD Unavailable Unavailabl e Marlon Blake MD Unavailable Unavailabl e Jovany-Marlon Wong MD Unavailable Unavailabl e Jovany-CheriomMarlon roland MD Unavailable Unavailabl e Jovany-Marlon Wong MD Unavailable Unavailabl e Jovany-Jahromi, Marlon MD Unavailable Unavailabl e Ranjbaran-Jahromi, Marlon MD Unavailable Unavailabl e Kayodebaran-Jahromi, Marlon MD Unavailable Unavailabl e Ranjbaran-Jahromi, Marlon MD Unavailable Unavailabl e Ranjbaran-Jahromi, Marlon MD Unavailable Unavailabl e Ranjbaran-Jahromi, Marlon MD Unavailable Unavailabl e Raneduinbaran-Jahromi, Marlon MD Unavailable Unavailabl e Raneduinbaran-Jahromi, Marlon MD Unavailable Unavailabl e Ranjbaran-Jahromi, Marlon MD Unavailable Unavailabl e Ranjbaran-Jahromi, Marlon MD Unavailable Unavailabl e Ranjbaran-Jahromi, Marlon MD Unavailable Unavailabl e Ranjbaran-Jahromi, Marlon MD Unavailable Unavailabl e Ranjbaran-Jahromi, Marlon MD Unavailable Unavailabl e Kayodebaran-Jahromi Marlon MD Unavailable Unavailabl e Kayodebaran-Jahromi Marlon MD Unavailable Unavailabl e Ranjbaran-Jahromi, Marlon MD Unavailable Unavailabl e Kayodebaran-Jahromi, Marlon MD Unavailable Unavailabl e Kayodebaran-Jahromi, Marlon MD Unavailable Unavailabl e Kayodebaran-Jahromi Marlon MD Unavailable Unavailabl e Kayodebaran-Jahromi, Marlon MD Unavailable Unavailabl e Kayodebaran-Jahromi Marlon MD Unavailable Unavailabl e Kayodebaran-Jahromi Marlon MD Unavailable Unavailabl e Ranjbaran-Jahromi, Marlon MD Unavailable Unavailabl e Ranjbaran-Jahromi, Marlon MD Unavailable Unavailabl e Kayodebaran-Jahromi, Marlon MD Unavailable Unavailabl e Kayodebaran-Jahromi Marlon MD Unavailable Unavailabl e Kayodebaran-Jahromi, Marlon MD Unavailable Unavailabl e Raneduinbaran-Jahromi, Marlon MD Unavailable Unavailabl e Kayodebaran-Jahromi Marlon MD Unavailable Unavailabl e Kayodebaran-Jahromi Marlon MD Unavailable Unavailabl e Raneduinbaran-Jahromi, Marlon MD Unavailable Unavailabl e Ranjbaran-Jahromi, Marlon MD Unavailable Unavailabl e Kayodebaran-Jahromi, Marlon MD Unavailable Unavailabl e Ranjbaran-Jahromi Marlon MD Unavailable Unavailabl e Ranjbaran-Jahromi, Marlon MD Unavailable Unavailabl e Kayodebaran-Jahromi Marlon MD Unavailable Unavailabl e Kayodebaran-Jahromi Marlon MD Unavailable Unavailabl e Ranjbaran-Jahromi Marlon MD Unavailable Unavailabl e Ranjbaran-Jahromi, Marlon MD Unavailable Unavailabl e Kayodebaran-Jahromi Marlon MD Unavailable Unavailabl e Kayodebaran-Jahromi Marlon MD Unavailable Unavailabl e Kayodebaran-Jahromi Marlon MD Unavailable Unavailabl e Kayodebaran-Jahromi Marlon MD Unavailable Unavailabl e Kayodebaran-Jahromi Marlon MD Unavailable Unavailabl e Kayodebaran-Jahromi Marlon MD Unavailable Unavailabl e Kayodebaran-Jahromi Marlon MD Unavailable Unavailabl e Jovany-Jahromi Marlon MD Unavailable Unavailabl e Jovany-Joshromi Marlonjese GILLIS Unavailable Unavailabl e Jovany-Jahromi Marlonjese GILLIS Unavailable Unavailabl e Jovany-Jahromi Marlon Unavailable Unavailabl e Jovany-Jahromi Marlonjese GILLIS Unavailable Unavailabl e Jovany-Joshromi Marlon MD Unavailable Unavailabl e Kayodebaran-Jahromi Mralon MD Unavailable Unavailabl e Kayodebaran-Jahromi Marlon MD Unavailable Unavailabl e Jovany-Jahromi Marlonjese GILLIS Unavailable Unavailabl e Jovany-Joshromi Marlon MD Unavailable Unavailabl e Андрейan-Jahromi Marlon MD Unavailable Unavailabl e Андрейan-Jahromi Marlon Unavailable Unavailabl e Jovany-Jahromi Marlonjese GILLIS Unavailable Unavailabl e Jovany-CheriomiMarlon MD Unavailable Unavailabl e Ranjbaran-Marlon Wong MD Unavailable Unavailabl e Jovany-Marlon Wong MD Unavailable Unavailabl e Jovany-Marlon Wong MD Unavailable Unavailabl e Jovany-JaMarlon riddle MD Unavailable Unavailabl e Jovany-Marlon Wong MD Unavailable Unavailabl e Jovany-Marlon Wong MD Unavailable Unavailabl e Jovany-Marlon Wong MD Unavailable Unavailabl e Jovany-JahrMarlon garcia MD Unavailable Unavailabl e Jovany-Marlon Wong MD Unavailable Unavailabl e Marlon Blake MD Unavailable Unavailabl e Jovany-Marlon Wong MD Unavailable Unavailabl e Marlon Blake MD Unavailable Unavailluke e MANNY R TC Unavailable Unavailable Yahaira LANCASTER MD Unavailable Unavailable Yahaira LANCASTER MD Unavailable Unavailable Yahaira LANCASTER MD Unavailable Unavailable Yahaira LANCASTER MD Unavailable Unavailable Yahaira LANCASTER MD Unavailable Unavailable Yahaira LANCASTER MD Unavailable Unavailable Yahaira LANCASTER MD Unavailable Unavailable Yahaira LANCASTER MD Unavailable Unavailable Yahaira LANCASTER MD Unavailable Unavailable Yahaira LANCASTER MD Unavailable Unavailable Yahaira LANCASTER MD Unavailable Unavailable Yahaira LANCASTER MD Unavailable Unavailable Yahaira LANCASTER MD Unavailable Unavailable Yahaira LANCASTER MD Unavailable Unavailable Yahaira LANCASTER MD Unavailable Unavailable Yahaira LANCASTER MD Unavailable Unavailable Yahaira LANCASTER MD Unavailable Unavailable Yahaira LANCASTER MD Unavailable Unavailable Yahaira LANCASTER MD Unavailable Unavailable Yahaira LANCASTER MD Unavailable Unavailable Yahaira LANCASTER MD Unavailable Unavailable Yahaira LANCASTER MD Unavailable Unavailable Yahaira LANCASTER MD Unavailable Unavailable Yahaira LANCASTER MD Unavailable Unavailable Yahaira LANCASTER MD Unavailable Unavailable Yahaira LANCASTER MD Unavailable Unavailable Yahaira LANCASTER MD Unavailable Unavailable Yahaira LANCASTER MD Unavailable Unavailable Yahaira LANCASTER MD Unavailable Unavailable Yahaira LANCASTER MD Unavailable Unavailable Yahaira LANCASTER MD Unavailable Unavailable Yahaira LANCASTER MD Unavailable Unavailable Yahaira LANCASTER MD Unavailable Unavailable Yahaira LANCASTER MD Unavailable Unavailable Yahaira LANCASTER MD Unavailable Unavailable Yahaira LANCASTER MD Unavailable Unavailable Yahaira LANCASTER MD Unavailable Unavailable Yahaira LANCASTER MD Unavailable Unavailable Yahaira LANCASTER MD Unavailable Unavailable Yahaira LANCASTER MD Unavailable Unavailable Yahaira LANCASTER MD Unavailable Unavailable Yahaira LANCASTER MD Unavailable Unavailable ANISHAYahaira CAR MD Unavailable Unavailable Yahaira LANCASTER MD Unavailable Unavailable Yahaira LANCASTER MD Unavailable Unavailable Yahaira LANCASTER MD Unavailable Unavailable Yahaira LANCASTER MD Unavailable Unavailable Yahaira LANCASTER MD Unavailable Unavailable Yahaira LANCASTER MD Unavailable Unavailable Yahaira LANCASTER MD Unavailable Unavailable Yahaira LANCASTER MD Unavailable Unavailable Yahaira LANCASTER MD Unavailable Unavailable Yahaira LANCASTER MD Unavailable Unavailable Yahaira LANCASTER MD Unavailable Unavailable Yahaira LANCASTER MD Unavailable Unavailable Yahaira LANCASTER MD Unavailable Unavailable Yahaira LANCASTER MD Unavailable Unavailable Yahaira LANCASTER MD Unavailable Unavailable Yahaira LANCASTER MD Unavailable Unavailable Yahaira LANCASTER MD Unavailable Unavailable Yahaira LANCASTER MD Unavailable Unavailable Yahaira LANCASTER MD Unavailable Unavailable Yahaira LANCASTER MD Unavailable Unavailable Yahaira LANCASTER MD Unavailable Unavailable Jessica CHACON MD Unavailable Unavailable OSWALDOJessica HERNANDEZ MD Unavailable Unavailable Jessica CHACON MD Unavailable Unavailable Jessica CHACON MD Unavailable Unavailable Jessica CHACON MD Unavailable Unavailable Jessica CHACON MD Unavailable Unavailable Jessica CHACON MD Unavailable Unavailable Jessica CHACON MD Unavailable Unavailable Jessica CHACON MD Unavailable Unavailable Jessica CHACON MD Unavailable Unavailable Jessica CHACON MD Unavailable Unavailable Jessica CHACON MD Unavailable Unavailable Jessica CHACON MD Unavailable Unavailable Jessica CHACON MD Unavailable Unavailable Jessica CHACON MD Unavailable Unavailable Jessica CHACON MD Unavailable Unavailable Jessica CHACON MD Unavailable Unavailable OSWALDOJessica HERNANDEZ MD Unavailable Unavailable OSWALDOJessica HERNANDEZ MD Unavailable Unavailable Jessica CHACON MD Unavailable Unavailable Jessica CHACON MD Unavailable Unavailable Jessica CHACON MD Unavailable Unavailable Jessica CHACON MD Unavailable Unavailable Jessica CHACON MD Unavailable Unavailable Jessica CHACON MD Unavailable Unavailable Jessica CHACON MD Unavailable Unavailable Jessica CHACON MD Unavailable Unavailable Jessica CHACON MD Unavailable Unavailable Jessica CHACON MD Unavailable Unavailable Jessica CHACON MD Unavailable Unavailable Jessica CHACON MD Unavailable Unavailable Jessica CHACON MD Unavailable Unavailable OSWALDOJessica HERNANDEZ MD Unavailable Unavailable OSWALDOJessica HERNANDEZ MD Unavailable Unavailable OSWALDO, Jessica YEBOAH MD Unavailable Unavailable OSWALDO, Jessica YEBOAH MD Unavailable Unavailable OSWALDO, Jessica YEBOAH MD Unavailable Unavailable OSWALDO, Jessica YEBOAH MD Unavailable Unavailable OSWALDO, Jessica YEBOAH MD Unavailable Unavailable OSWALDO, Jessica YEBOAH MD Unavailable Unavailable OSWALDO, Jessica YEBOAH MD Unavailable Unavailable OSWALDO, Jessica YEBOAH MD Unavailable Unavailable OSWALDO, Jessica YEBOAH MD Unavailable Unavailable OSWALDO, Jessica YEBOAH MD Unavailable Unavailable OSWALDO, Jessica YEBOAH MD Unavailable Unavailable OSWALDO, Jessica YEBOAH MD Unavailable Unavailable OSWALDO, Jessica YEBOAH MD Unavailable Unavailable OSWALDO, Jessica YEBOAH MD Unavailable Unavailable OSWALDO, Jessica YEBOAH MD Unavailable Unavailable OSWALDO, Jessica YEBOAH MD Unavailable Unavailable OSWALDO, Jessica YEBOAH MD Unavailable Unavailable OSWALDO, Jessica YEBOAH MD Unavailable Unavailable OSWALDO, Jessica YEBOAH MD Unavailable Unavailable OSWALDO, Jessica YEBOAH MD Unavailable Unavailable OSWALDO, Jessica YEBOAH MD Unavailable Unavailable OSWALDO, Jessica YEBOAH MD Unavailable Unavailable OSWALDO, Jessica YEBOAH MD Unavailable Unavailable OSWALDO, Jessica YEBOAH MD Unavailable Unavailable OSWALDO, Jessica YEBOAH MD Unavailable Unavailable OSWALDO, Jessica YEBOAH MD Unavailable Unavailable OSWALDO, Jessica YEBOAH MD Unavailable Unavailable OSWALDO, Jessica YEBOAH MD Unavailable Unavailable OSWALDO, Jessica YEBOAH MD Unavailable Unavailable OSWALDO, Jessica YEBOAH MD Unavailable Unavailable OSWALDO, Jessica YEBOAH MD Unavailable Unavailable OSWALDO, Jessica YEBOAH MD Unavailable Unavailable OSWALDO, Jessica YEBOAH MD Unavailable Unavailable OSWALDO, Jessica YEBOAH MD Unavailable Unavailable OSWALDO, Jessica YEBOAH MD Unavailable Unavailable OSWALDO, Jessica YEBOAH MD Unavailable Unavailable OSWALDO, Jessica YEBOAH MD Unavailable Unavailable OSWALDO, Jessica YEBOAH MD Unavailable Unavailable OSWALDO, Jessica YEBOAH MD Unavailable Unavailable OSWALDO, Jessica YEBOAH MD Unavailable Unavailable OSWALDO, Jessica YEBOAH MD Unavailable Unavailable OSWALDO, Jessica YEBOAH MD Unavailable Unavailable OSWALDO, Jessica YEBOAH MD Unavailable Unavailable OSWALDO, Jessica YEBOAH MD Unavailable Unavailable OSWALDO, Jessica YEBOAH MD Unavailable Unavailable OSWALDO, Jessica YEBOAH MD Unavailable Unavailable OSWALDO, Jessica YEBOAH MD Unavailable Unavailable OSWALDO, Jessica YEBOAH MD Unavailable Unavailable OSWALDO, Jessica YEBOAH MD Unavailable Unavailable OSWALDO, Jessica YEBOAH MD Unavailable Unavailable OSWALDO, Jessica YEBOAH MD Unavailable Unavailable OSWALDO, Jessica YEBOAH MD Unavailable Unavailable OSWALDO, Jessica YEBOAH MD Unavailable Unavailable OSWALOD, Jessica YEBOAH MD Unavailable Unavailable OSWALDO, Jessica YEBOAH MD Unavailable Unavailable OSWALDO, Jessica YEBOAH MD Unavailable Unavailable OSWALDO, Jessica YEBOAH MD Unavailable Unavailable OSWALDO, Jessica YEBOAH MD Unavailable Unavailable OSWALDO, Jessica YEBOAH MD Unavailable Unavailable OSWALDO, Jessica YEBOAH MD Unavailable Unavailable OSWALDO, Jessica YEBOAH MD Unavailable Unavailable OSWALDO, Jessica YEBOAH MD Unavailable Unavailable OSWALDO, Jessica YEBOAH MD Unavailable Unavailable OSWALDO, F OBINNA MD Unavailable Unavailable Jessica CHACON MD Unavailable Unavailable Jessica CHACON MD Unavailable Unavailable Re-disclosure Warning The records that you are about to access may contain information from federally-assisted alcohol or drug abuse programs. If such information is present, then the following federally mandated warning applies: This information has been disclosed to you from records protected by federal confidentiality rules (42 CFR part 2). The federal rules prohibit you from making any further disclosure of this information unless further disclosure is expressly permitted by the written consent of the person to whom it pertains or as otherwise permitted by 42 CFR part 2. A general authorization for the release of medical or other information is NOT sufficient for this purpose. The Federal rules restrict any use of the information to criminally investigate or prosecute any alcohol or drug abuse patient.The records that you are about to access may contain highly sensitive health information, the redisclosure of which is protected by Article 27-F of the [facility] Public Health law. If you continue you may have access to information: Regarding HIV / AIDS; Provided by facilities licensed or operated by the [facility] Office of Mental Health; or Provided by the [facility] Office for People With Developmental Disabilities. If such information is present, then the following [facility] mandated warning applies: This information has been disclosed to you from confidential records which are protected by state law. State law prohibits you from making any further disclosure of this information without the specific written consent of the person to whom it pertains, or as otherwise permitted by law. Any unauthorized further disclosure in violation of state law may result in a fine or long-term sentence or both. A general authorization for the release of medical or other information is NOT sufficient authorization for further disc losure. Allergies and Adverse Reactions Type Description Substance Reaction Status Data Source(s ) Propensity to adverse reactions GABAPENTIN GABAPENTIN [facility] Family History Family Member Name Family Member Gender Family Member Status Date o f Status Description Data Source(s) Unknown Unknown Problem [facility] ([facility]) Unknown Unknown Problem [facility] ([facility]) Unknown Unknown Problem [facility] ([facility]) Unknown Unknown Problem [facility] ([facility]) Encounters Encounter Providers Location Date Indications Data Source(s ) Outpatient Attender: EMILY LANCASTER MD 05/08/2021 12:00:00 AM [facility] Outpatient Attender: EMILY LANCASTER MD [id number] 02/27/2021 12:00:00 AM [facility] [place] [address] [address] 01/17/2021 12:00:00 AM EDT [facility]CW1 [facility] [place] [address] [address] 01/12/2021 12:00:00 AM EDT [facility]CW1 [facility] [place] [address] [address] 01/11/2021 12:00:00 AM EDT eCW1 ([facility]) Outpatient Attender: EMILY LANCASTER MD [id number] 12/26/2020 12:00:00 AM [facility] Outpatient Attender: EMILY LANCASTER MD [id number] 12/14/2020 09:32:48 AM [facility] Outpatient Attender: EMILY LANCASTER MD 12/14/2020 12:00:00 AM [facility] Outpatient 12/05/2020 12:00:00 AM [facility] Outpatient Attender: EMILY LANCASTER MD [id number] 12/02/2020 03:10:03 PM [facility] [place] [address] [address] 12/01/2020 12:00:00 AM EDT eCW1 ([facility]) Outpatient Attender: EMILY LANCASTER MD [id number] 11/23/2020 12:00:00 AM [facility] Outpatient 11/13/2020 12:00:00 AM [facility] Outpatient Attender: EMILY [id number] 11/08/2020 10:10:14 PM [facility] Outpatient Attender: EMILY LANCASTER MD [id number] 10/31/2020 12:00:00 AM [facility] Outpatient Attender: EMILY LANCASTER MD [facility]: [facility] MD 10/11/2020 12:00:00 AM [facility] Outpatient Attender: Marlon Blake MD [facility] 10/10/2020 08:30:00 AM EDT MEDENT ([facility] Outpatient Attender: TC BRYANTReferrer: EMILY LANCASTER MD [id number] [facility]: [facility] LANCASTER MD [id number] 09/28/2020 12: 00:00 AM EDT Spondylosis without myelopathy or radiculopathy, lumbar region [facility] Spondylosis without myelopathy or radicu lopathy, lumbar region Outpatient Attender: EMILY LANCASTER MD [id number] 09/12/2020 09:03:17 PM [facility] [place] [address] [address] 08/29/2020 12:00:00 AM EDT [facility] [place] [address] [address] 08/18/2020 12:00:00 AM EDT [facility] Outpatient Attender: EMILY LANCASTER MD [id number] 08/10/2020 12: 00:00 AM EDT Radiculopathy, lumbar region [facility] Radiculopathy, lumbar region [place] [address] [address] 08/03/2020 12:00:00 AM EDT [facility]CW1 [facility] Outpatient Attender: EMILY LANCASTER MD 07/24/2020 12:00:00 AM [facility] [place] [address] [address] 07/17/2020 12:00:00 AM EST [facility]CW1 [facility] TeleMedicine Phone E/M by Phys 11-20 Min [address] [place] [address] 07/17/2020 12:00:00 AM EST eCW1 ([facility]) TeleMedicine Phone E/M by Phys 11-20 Min [address] [place] [address] 07/13/2020 12:00:00 AM EST eCW1 ([facility] hospital) [place] [address] [address] 07/13/2020 12:00:00 AM EST eCW1 ([facility]) TeleMedicine Phone E/M by Phys 11-20 Min [address] [place] [address] 07/12/2020 12:00:00 AM EST eCW1 (Critical access hospital) Outpatient Attender: DUDLEY WHITLEYP 06/20 02:34:33 PM EST - 07/10/2020 03:20:47 PM EST DocuTap ([facility] ) Outpatient 07/10/2020 12:00:00 AM [facility] Outpatient Attender: EMILY LANCASTER MD [id number] 07/08/2020 04:56:12 PM [facility] Outpatient Attender: EMILY LANCASTER MDReferrer: Natalia FLORES [id number] 07/03/2020 12:00:00 AM EST Radiculopathy, lumbar region [facility] Radiculopathy, lumbar region Outpatient Attender: ADONAY JURADO MDReferrer: Natalia FLORES 07/03/2020 12:00:00 AM [facility] [place] [address] [address] 06/26/2020 12:00:00 AM EST eCW1 ([facility]) Outpatient Attender: Natalia FLORES [id number] 06/22/2020 12 :00:00 AM EST Spondylosis without myelopathy or radiculopathy, sacral and sacrococcygeal region [facility] Spondylosis without myelopathy or radicu lopathy, sacral and sacrococcygeal region [place] [address] [address] 06/20/2020 12:00:00 AM EST eCW1 ([facility]) [place] [address] [address] 06/16/2020 12:00:00 AM EST eCW1 ([facility]) Outpatient Attender: Natalia FLORES 06/15/2020 12:00:00 AM [facility] [place] [address] [address] 05/29/2020 12:00:00 AM EST eCW1 ([facility]) Outpatient Referrer: OBINNA CHACON MD [id number] 08/2020 12:00:00 AM EST - 05/23/2020 12:00:00 AM [facility] [place] [address] [address] 05/04/2020 12:00:00 AM EST eCW1 ([facility]) Outpatient Attender: OBINNA MORALESeferrer: OBINNA GIL MD [id number] 04/27/2020 12:00:00 AM EST Radiculopathy, lumbar region [facility] Radiculopathy, lumbar region [place]patient [address] [address] 04/25/2020 12:00:00 AM EST eCW1 ([facility]) Outpatient Referrer: OBINNA CHACON MD 04/21/2020 1 2:00:00 AM EST [facility] Cervicalgia Outpatient Attender: EMILY LANCASTER MD 04/12/2020 12:00:00 AM [facility] Outpatient Attender: OBINNA CHACON MD [id number] 03/23/2020 1 2:00:00 AM EST [facility] Cervicalgia Outpatient Attender: Marlon Blake MD [facility] 03/22/2020 02:30:00 PM EST MEDENT ([facility] [place] [address] [address] 03/22/2020 12:00:00 AM EST eCW1 ([facility]) Outpatient Attender: OBINNA CHACON MDReferrer: EMILY AU MD 03/02/2020 12:00:00 AM EDT [facility] Outpatient Attender: Marlon Blake MD [facility] 02/18/2020 11:30:00 AM EDT MEDENT ([facility] [place] [address] [address] 02/17/2020 12:00:00 AM EDT eCW1 ([facility]) Outpatient Attender: OBINNA CHACON MDReferrer: EMILY AU MD [id number] 02/15/2020 12:00:00 AM EDT Pain in right hip [facility] Pain in right hip Outpatient Attender: EMILY LANCASTER MD [id number] 02/08/2020 12: 00:00 AM EDT Radiculopathy, lumbar region [facility] Radiculopathy, lumbar region [place] [address] [address] 02/08/2020 12:00:00 AM EDT eCW1 ([facility]) Outpatient Attender: Marlon Blake MD [facility] 02/02/2020 09:00:00 AM EDT MEDENT ([facility] Outpatient Attender: EMILY LANCASTER MD [id number] 01/25/2020 11:01:27 AM [facility] Outpatient Referrer: EMILY LANCASTER MD [id number] 01/24 12:00:00 AM EDT - 01/26/2020 12:00:00 AM [facility] Immunizations Vaccine Date Status Description Data Source(s) COVID-19 VACCINE Moderna 09/04/2020 12:00:00 AM EDT completed [facility] Vaccine Series Complete: YESThis Data wa s Submitted to [facility] Via [email or web address]. COVID-19 VACC,MRNA(MODERNA)/PF 08/04/2020 12:00:00 AM EDT completed [facility] COVID-19 VACCINE Moderna 08/04/2020 12:00:00 AM EDT completed [facility] Vaccine Series Complete: NOThis Data was Submitted to [facility] Via [email or web address]. INFLUENZA VIRUS VACCINE QUADRIVALENT 2020-21 (6 MOS AN D UP) 03/16/2020 12:00:00 AM EDT completed [facility] This CVX code allows reporting of a vacc ination when formulation is unknown (for example, when recording a Influenza vaccination when noted on a vaccination card) 02/17/2020 11:17:00 AM EDT completed ANGIE Marquez ([facility]) Medications Medication Brand Name Start Date Product Form Dose Route Admi nistrative Instructions Pharmacy Instructions Status Indications Reaction Description Data Source(s) 17 gram/dose 03/12/2021 12:00:00 AM EDT powder 510 TAKE 17 GRAMS (1 CAPFUL) DISSOLVED IN 8OZ LIQUID AND DRINK ONCE DAILY TAKE 17 GRAMS (1 CAPFUL) DISSOLVED IN 8OZ LIQUID AND DRINK ONCE DAILY SOLD: 03/13/2021 [facility] 60 mcg (15 mcg x 4)/0.5 mL 03/03/2021 12:00:00 AM EDT syring e 0 INJECT DIRECTED INJECT DIRECTED SOLD: 03/03/2021 [facility] 17 gram/dose 02/28/2021 12:00:00 AM EDT powder 510 USE DIRECTED FOR BOWEL PREP USE DIRECTED FOR BOWEL PREP SOLD: 03/03/2021 [facility] Bisacodyl 5 MG Delayed Release Oral Tablet [Dulcolax] Dulcol ax 02/27/2021 12:00:00 AM EDT ORAL active M EDENT ([facility], ) POLYETHYLENE GLYCOL 3350 142 MG/ML Oral Solution [Miralax] M iralax 02/27/2021 12:00:00 AM EDT active M EDENT ([facility], ) 600 mg 01/26/2021 12:00:00 AM EDT tablet 90 TAKE 1/2TAB.(300MG) BY MOUTH 3X/DAY INCREASE BY 1/2TAB. EVERY 3-7 DAYS MAX 3TABS/DAY TAKE 1/2TAB.(300MG) BY MOUTH 3X/DAY INCREASE BY 1/2TAB. EVERY 3-7 DAYS MAX 3TABS/DAY SOLD: 02/27/2021 [facility] 600 mg 01/26/2021 12:00:00 AM EDT tablet 90 TAKE 1/2TAB.(300MG) BY MOUTH 3X/DAY INCREASE BY 1/2TAB. EVERY 3-7 DAYS MAX 3TABS/DAY TAKE 1/2TAB.(300MG) BY MOUTH 3X/DAY INCREASE BY 1/2TAB. EVERY 3-7 DAYS MAX 3TABS/DAY SOLD: 01/26/2021 [facility] Cyclobenzaprine hydrochloride 10 MG Oral Tablet CYCLOBENZAPR INE HCL 01/08/2021 12:00:00 AM EDT tablet 15 TAKE ONE TABLET BY MOUTH THREE TIMES A DAY FOR MUSCLE SPASMS TAKE ONE TABLET BY MOUTH THREE TIMES A DAY FOR MUSCLE SPASMS SOLD: 01/08/2021 [facility] 500 mg 01/08/2021 12:00:00 AM EDT tablet 30 TAKE ONE TABLET BY MOUTH TWICE A DAY WITH FOOD TAKE ONE TABLET BY MOUTH TWICE A DAY WITH FOOD SOLD: [facility] 100 mg 12/26/2020 12:00:00 AM EDT capsule 90 TAKE 1 CAPSULE BY MOUTH 3 TIMES A DAY MAXIMUM DAILY DOSE = 3 CAPSULES TAKE 1 CAPSULE BY MOUTH 3 TIMES A DAY MAXIMUM DAILY DOSE = 3 CAPSULES SOLD: 01/01/2021 [facility] gabapentin 100 MG Oral Capsule Gabapentin 100 MG Oral Capsule (Neurontin) Gabapentin 100 MG Oral Capsule (Neurontin) 12/26/2020 12:00:00 AM EDT 100 mg Oral active Lumbar radicular pain Evans e 1 capsule by mouth Three times daily [facility] Lumbar radicular pain 24 HR Bupropion Hydrochloride 150 MG Extended Release Oral T ablet BUPROPION HCL 12/02/2020 12:00:00 AM EDT tablet extended release 24 hr 90 TAKE ONE TABLET BY MOUTH EVERY MORNING TAKE ONE TABLET BY MOUTH EVERY MORNING SOLD: 12/02/2020 [facility] 24 HR Bupropion Hydrochloride 150 MG Extended Release Oral T ablet BUPROPION HCL 12/02/2020 12:00:00 AM EDT tablet extended release 24 hr 90 TAKE ONE TABLET BY MOUTH EVERY MORNING TAKE ONE TABLET BY MOUTH EVERY MORNING SOLD: 03/03/2021 [facility] 150 mg 12/02/2020 12:00:00 AM EDT capsule,extended releas e 24hr 90 TAKE ONE CAPSULE BY MOUTH EVERY DAY WITH FOOD TAKE ONE CAPSULE BY MOUTH EVERY DAY WITH FOOD SOLD: 03/03/2021 [facility] 150 mg 12/02/2020 12:00:00 AM EDT capsule,extended releas e 24hr 90 TAKE ONE CAPSULE BY MOUTH EVERY DAY WITH FOOD TAKE ONE CAPSULE BY MOUTH EVERY DAY WITH FOOD SOLD: 12/02/2020 [facility] buspirone hydrochloride 10 MG Oral Tablet BUSPIRONE HCL 09/27/2020 12:00:00 AM EDT tablet 60 TAKE ONE TABLET BY MOUTH TWI CE A DAY TAKE ONE TABLET BY MOUTH TWICE A DAY SOLD: 01/01/2021 [facility] buspirone hydrochloride 10 MG Oral Tablet BUSPIRONE HCL 09/27/2020 12:00:00 AM EDT tablet 60 TAKE ONE TABLET BY MOUTH TWI CE A DAY TAKE ONE TABLET BY MOUTH TWICE A DAY SOLD: 10/03/2020 [facility] buspirone hydrochloride 10 MG Oral Tablet BUSPIRONE HCL 09/27/2020 12:00:00 AM EDT tablet 60 TAKE ONE TABLET BY MOUTH TWI CE A DAY TAKE ONE TABLET BY MOUTH TWICE A DAY SOLD: 02/04/2021 [facility] buspirone hydrochloride 10 MG Oral Tablet BUSPIRONE HCL 09/27/2020 12:00:00 AM EDT tablet 60 TAKE ONE TABLET BY MOUTH TWI CE A DAY TAKE ONE TABLET BY MOUTH TWICE A DAY SOLD: 03/12/2021 [facility] buspirone hydrochloride 10 MG Oral Tablet BUSPIRONE HCL 09/27/2020 12:00:00 AM EDT tablet 60 TAKE ONE TABLET BY MOUTH TWI CE A DAY TAKE ONE TABLET BY MOUTH TWICE A DAY SOLD: 11/01/2020 [facility] buspirone hydrochloride 10 MG Oral Tablet BUSPIRONE HCL 09/27/2020 12:00:00 AM EDT tablet 60 TAKE ONE TABLET BY MOUTH TWI CE A DAY TAKE ONE TABLET BY MOUTH TWICE A DAY SOLD: 12/02/2020 [facility] Covid-19 vaccine, Unspecified 09/04/2020 12:00:00 AM EDT completed MEDENT ([facility]) Medication administered onsite 24 HR Bupropion Hydrochloride 150 MG Extended Release Oral T ablet BUPROPION HCL 08/22/2020 12:00:00 AM EDT tablet extended release 24 hr 30 TAKE ONE TABLET BY MOUTH ONCE DAILY IN THE MORNING TAKE ONE TABLET BY MOUTH ONCE DAILY IN T HE MORNING SOLD: 11/01/2020 [facility] 24 HR Bupropion Hydrochloride 150 MG Extended Release Oral T ablet BUPROPION HCL 08/22/2020 12:00:00 AM EDT tablet extended release 24 hr 30 TAKE ONE TABLET BY MOUTH ONCE DAILY IN THE MORNING TAKE ONE TABLET BY MOUTH ONCE DAILY IN T HE MORNING SOLD: 10/03/2020 [facility] 24 HR Bupropion Hydrochloride 150 MG Extended Release Oral T ablet BUPROPION HCL 08/22/2020 12:00:00 AM EDT tablet extended release 24 hr 30 TAKE ONE TABLET BY MOUTH ONCE DAILY IN THE MORNING TAKE ONE TABLET BY MOUTH ONCE DAILY IN T HE MORNING SOLD: 08/30/2020 [facility] 25 mg 07/19/2020 12:00:00 AM EST tablet 60 TAKE ONE TABLET BY MOUTH TWO TIMES A DAY WITH FOOD TAKE ONE TABLET BY MOUTH TWO TIMES A DAY WITH FOOD SILVESTRE [facility] 25 mg 07/19/2020 12:00:00 AM EST tablet 60 TAKE ONE TABLET BY MOUTH TWO TIMES A DAY WITH FOOD TAKE ONE TABLET BY MOUTH TWO TIMES A DAY WITH FOOD SILVESTRE [facility] 25 mg 07/19/2020 12:00:00 AM EST tablet 60 TAKE ONE TABLET BY MOUTH TWO TIMES A DAY WITH FOOD TAKE ONE TABLET BY MOUTH TWO TIMES A DAY WITH FOOD SILVESTRE [facility] 25 mg 07/19/2020 12:00:00 AM EST tablet 60 TAKE ONE TABLET BY MOUTH TWO TIMES A DAY WITH FOOD TAKE ONE TABLET BY MOUTH TWO TIMES A DAY WITH FOOD SILVESTRE [facility] 25 mg 07/19/2020 12:00:00 AM EST tablet 60 TAKE ONE TABLET BY MOUTH TWO TIMES A DAY WITH FOOD TAKE ONE TABLET BY MOUTH TWO TIMES A DAY WITH FOOD SILVESTRE [facility] 25 mg 07/19/2020 12:00:00 AM EST tablet 60 TAKE ONE TABLET BY MOUTH TWO TIMES A DAY WITH FOOD TAKE ONE TABLET BY MOUTH TWO TIMES A DAY WITH FOOD SILVESTRE [facility] Metoprolol Tartrate 25 MG Oral Tablet Metoprolol Tartrate 25 MG 07/17/2020 12:00:00 AM EST 1.0 {tablet_with_food} suspended Metoprolol Tartrate 25 MG W1 ([facility]) Metoprolol Tartrate 25 MG Oral Tablet Metoprolol Tartrate 25 MG 07/17/2020 12:00:00 AM EST 1.0 {tablet_with_food} suspended Metoprolol Tartrate 25 MG eCW1 ([facility]) Metoprolol Tartrate 25 MG Oral Tablet Metoprolol Tartrate 25 MG 07/17/2020 12:00:00 AM EST 1.0 {tablet_with_food} suspended Metoprolol Tartrate 25 MG eCW1 ([facility]) Metoprolol Tartrate 25 MG Oral Tablet Metoprolol Tartrate 25 MG 07/17/2020 12:00:00 AM EST 1.0 {tablet_with_food} active Metoprolol Tartrate 25 MG eCW1 ([facility]) Metoprolol Tartrate 25 MG Oral Tablet Metoprolol Tartrate 25 MG 07/17/2020 12:00:00 AM EST 1.0 {tablet_with_food} suspended Metoprolol Tartrate 25 MG eCW1 ([facility]) Metoprolol Tartrate 25 MG Oral Tablet Metoprolol Tartrate 25 MG 07/17/2020 12:00:00 AM EST 1.0 {tablet_with_food} active Metoprolol Tartrate 25 MG eCW1 ([facility]) Metoprolol Tartrate 25 MG Oral Tablet Metoprolol Tartrate 25 MG 07/17/2020 12:00:00 AM EST 1.0 {tablet_with_food} suspended Metoprolol Tartrate 25 MG eCW1 ([facility]) Metoprolol Tartrate 25 MG Oral Tablet Metoprolol Tartrate 25 MG 07/17/2020 12:00:00 AM EST 1.0 {tablet_with_food} suspended Metoprolol Tartrate 25 MG eCW1 ([facility]) Metoprolol Tartrate 25 MG Oral Tablet Metoprolol Tartrate 25 MG 07/17/2020 12:00:00 AM EST 1.0 {tablet_with_food} active Metoprolol Tartrate 25 MG eCW1 ([facility]) Metoprolol Tartrate 25 MG Oral Tablet Metoprolol Tartrate 25 MG 07/17/2020 12:00:00 AM EST 1.0 {tablet_with_food} active Metoprolol Tartrate 25 MG eCW1 ([facility]) Metoprolol Tartrate 25 MG Oral Tablet Metoprolol Tartrate 25 MG 07/17/2020 12:00:00 AM EST 1.0 {tablet_with_food} active Metoprolol Tartrate 25 MG eCW1 ([facility]) Diclofenac Sodium 0.01 MG/MG Topical Gel Diclofenac Sodium 1 % External Gel (VOLTAREN) Diclofenac Sodium 1 % External Gel (VOLTAREN) 06/22/19 12:00:00 AM EST 2 g Topical active Apply 2 g topica lly Four times daily [facility] 24 HR Bupropion Hydrochloride 150 MG Ext ended Release Oral Tablet buPROPion HCl ER (XL) 150 MG Oral Tablet Extended Release 24 Hour (WELLBUTRIN XL) buPROPion HCl ER (XL) 150 MG Oral Tablet Extended Release 24 Hour (WELLBUTRIN XL) 06/17/2020 12:00:00 AM EST 150 mg Oral active Take 150 mg by mouth every morning [facility] 24 HR Bupropion Hydrochloride 150 MG Extended Release Oral T ablet BUPROPION HCL 06/17/2020 12:00:00 AM EST tablet extended release 24 hr 30 TAKE ONE TABLET BY MOUTH EVERY MORNING TAKE ONE TABLET BY MOUTH EVERY MORNING SOLD: 07/25/2020 [facility] 24 HR Bupropion Hydrochloride 150 MG Extended Release Oral T ablet BUPROPION HCL 06/17/2020 12:00:00 AM EST tablet extended release 24 hr 30 TAKE ONE TABLET BY MOUTH EVERY MORNING TAKE ONE TABLET BY MOUTH EVERY MORNING SOLD: 06/19/2020 [facility] 24 HR Bupropion Hydrochloride 150 MG Ext ended Release Oral Tablet [Wellbutrin] Wellbutrin XL 150 MG Wellbutrin XL 150 MG 06/16/2020 12:00:00 AM EST 1.0 {tablet_in_the_morning} active Wellbutr in XL 150 MG eCW1 ([facility]) 24 HR Bupropion Hydrochloride 150 MG Ext ended Release Oral Tablet [Wellbutrin] Wellbutrin XL 150 MG Wellbutrin XL 150 MG 06/16/2020 12:00:00 AM EST 1.0 {tablet_in_the_morning} active Wellbutr in XL 150 MG eCW1 ([facility]) 24 HR Bupropion Hydrochloride 150 MG Ext ended Release Oral Tablet [Wellbutrin] Wellbutrin XL 150 MG Wellbutrin XL 150 MG 06/16/2020 12:00:00 AM EST 1.0 {tablet_in_the_morning} active Wellbutr in XL 150 MG eCW1 ([facility]) 24 HR Bupropion Hydrochloride 150 MG Ext ended Release Oral Tablet [Wellbutrin] Wellbutrin XL 150 MG Wellbutrin XL 150 MG 06/16/2020 12:00:00 AM EST 1.0 {tablet_in_the_morning} active Wellbutr in XL 150 MG eCW1 ([facility]) 24 HR Bupropion Hydrochloride 150 MG Ext ended Release Oral Tablet [Wellbutrin] Wellbutrin XL 150 MG Wellbutrin XL 150 MG 06/16/2020 12:00:00 AM EST 1.0 {tablet_in_the_morning} active Wellbutr in XL 150 MG eCW1 ([facility]) 24 HR Bupropion Hydrochloride 150 MG Ext ended Release Oral Tablet [Wellbutrin] Wellbutrin XL 150 MG Wellbutrin XL 150 MG 06/16/2020 12:00:00 AM EST 1.0 {tablet_in_the_morning} active Wellbutr in XL 150 MG eCW1 ([facility]) 24 HR Bupropion Hydrochloride 150 MG Ext ended Release Oral Tablet [Wellbutrin] Wellbutrin XL 150 MG Wellbutrin XL 150 MG 06/16/2020 12:00:00 AM EST 1.0 {tablet_in_the_morning} active Wellbutr in XL 150 MG eCW1 ([facility]) 24 HR Bupropion Hydrochloride 150 MG Ext ended Release Oral Tablet [Wellbutrin] Wellbutrin XL 150 MG Wellbutrin XL 150 MG 06/16/2020 12:00:00 AM EST 1.0 {tablet_in_the_morning} active Wellbutr in XL 150 MG eCW1 ([facility]) 24 HR Bupropion Hydrochloride 150 MG Ext ended Release Oral Tablet [Wellbutrin] Wellbutrin XL 150 MG Wellbutrin XL 150 MG 06/16/2020 12:00:00 AM EST 1.0 {tablet_in_the_morning} active Wellbutr in XL 150 MG eCW1 ([facility]) 24 HR venlafaxine 150 MG Extended Releas e Oral Capsule Venlafaxine HCl ER 150 MG Oral Capsule Extended Release 24 Hour (EFFEXOR-XR) Venlafaxine HCl ER 150 MG Oral Capsule Extended Release 24 Hour (EFFEXOR-XR) 06/02/2020 12:00:00 AM EST active TAKE ONE CAPSULE BY MOUT H EVERY DAY WITH FOOD [facility] 150 mg 06/02/2020 12:00:00 AM EST capsule,extended releas e 24hr 30 TAKE ONE CAPSULE BY MOUTH EVERY DAY WITH FOOD TAKE ONE CAPSULE BY MOUTH EVERY DAY WITH FOOD SOLD: 11/01/2020 [facility] 150 mg 06/02/2020 12:00:00 AM EST capsule,extended releas e 24hr 30 TAKE ONE CAPSULE BY MOUTH EVERY DAY WITH FOOD TAKE ONE CAPSULE BY MOUTH EVERY DAY WITH FOOD SOLD: 10/03/2020 [facility] 150 mg 06/02/2020 12:00:00 AM EST capsule,extended releas e 24hr 90 TAKE ONE CAPSULE BY MOUTH EVERY DAY WITH FOOD TAKE ONE CAPSULE BY MOUTH EVERY DAY WITH FOOD SOLD: 06/02/2020 [facility] 150 mg 06/02/2020 12:00:00 AM EST capsule,extended releas e 24hr 30 TAKE ONE CAPSULE BY MOUTH EVERY DAY WITH FOOD TAKE ONE CAPSULE BY MOUTH EVERY DAY WITH FOOD SOLD: 08/30/2020 [facility] Estradiol 0.1 MG/ML Vaginal Cream [Estrace] Estrace 0.1 MG/G M Estrace 0.1 MG/GM 05/05/2020 12:00:00 AM EST active Estrace 0.1 MG/GM eCW1 ([facility]) Estradiol 0.1 MG/ML Vaginal Cream [Estrace] Estrace 0.1 MG/G M Estrace 0.1 MG/GM 05/05/2020 12:00:00 AM EST active Estrace 0.1 MG/GM eCW1 ([facility]) Estradiol 0.1 MG/ML Vaginal Cream [Estrace] Estrace 0.1 MG/G M Estrace 0.1 MG/GM 05/05/2020 12:00:00 AM EST active Estrace 0.1 MG/GM eCW1 ([facility]) Estradiol 0.1 MG/ML Vaginal Cream [Estrace] Estrace 0.1 MG/G M Estrace 0.1 MG/GM 05/05/2020 12:00:00 AM EST active Estrace 0.1 MG/GM eCW1 ([facility]) Estradiol 0.1 MG/ML Vaginal Cream [Estrace] Estrace 0.1 MG/G M Estrace 0.1 MG/GM 05/05/2020 12:00:00 AM EST active Estrace 0.1 MG/GM eCW1 ([facility]) Estradiol 0.1 MG/ML Vaginal Cream [Estrace] Estrace 0.1 MG/G M Estrace 0.1 MG/GM 05/05/2020 12:00:00 AM EST active Estrace 0.1 MG/GM eCW1 ([facility]) Estradiol 0.1 MG/ML Vaginal Cream [Estrace] Estrace 0.1 MG/G M Estrace 0.1 MG/GM 05/05/2020 12:00:00 AM EST active Estrace 0.1 MG/GM eCW1 ([facility]) Estradiol 0.1 MG/ML Vaginal Cream [Estrace] Estrace 0.1 MG/G M Estrace 0.1 MG/GM 05/05/2020 12:00:00 AM EST active Estrace 0.1 MG/GM eCW1 ([facility]) 0.01 % (0.1 mg/gram) 05/05/2020 12:00:00 AM EST cream 42 INSERT 1 GRAM VAGINALLY TWICE WEEKLY FOR A MONTH THEN ONCE WEEKLY INSERT 1 GRAM VAGINALLY TWICE WEEKLY FOR A MONTH THEN ONCE WEEKLY SOLD: 05/07/2020 [facility] Estradiol 0.1 MG/ML Vaginal Cream [Estrace] Estrace 0.1 MG/G M Estrace 0.1 MG/GM 05/05/2020 12:00:00 AM EST suspended Estrace 0.1 MG/GM eCW1 ([facility]) Estradiol 0.1 MG/ML Vaginal Cream [Estrace] Estrace 0.1 MG/G M Estrace 0.1 MG/GM 05/05/2020 12:00:00 AM EST suspended Estrace 0.1 MG/GM eCW1 ([facility]) Estradiol 0.1 MG/ML Vaginal Cream [Estrace] Estrace 0.1 MG/G M Estrace 0.1 MG/GM 05/05/2020 12:00:00 AM EST suspended Estrace 0.1 MG/GM eCW1 ([facility]) Estradiol 0.1 MG/ML Vaginal Cream [Estrace] Estrace 0.1 MG/G M Estrace 0.1 MG/GM 05/05/2020 12:00:00 AM EST active Estrace 0.1 MG/GM eCW1 ([facility]) Estradiol 0.1 MG/ML Vaginal Cream [Estrace] Estrace 0.1 MG/G M Estrace 0.1 MG/GM 05/05/2020 12:00:00 AM EST active Estrace 0.1 MG/GM eCW1 ([facility]) Estradiol 0.1 MG/ML Vaginal Cream [Estrace] Estrace 0.1 MG/G M Estrace 0.1 MG/GM 05/05/2020 12:00:00 AM EST active Estrace 0.1 MG/GM eCW1 ([facility]) Estradiol 0.1 MG/ML Vaginal Cream [Estrace] Estrace 0.1 MG/G M Estrace 0.1 MG/GM 05/05/2020 12:00:00 AM EST active Estrace 0.1 MG/GM eCW1 ([facility]) Estradiol 0.1 MG/ML Vaginal Cream [Estrace] Estrace 0.1 MG/G M Estrace 0.1 MG/GM 05/05/2020 12:00:00 AM EST active Estrace 0.1 MG/GM eCW1 ([facility]) Estradiol 0.1 MG/ML Vaginal Cream [Estrace] Estrace 0.1 MG/G M Estrace 0.1 MG/GM 05/05/2020 12:00:00 AM EST active Estrace 0.1 MG/GM eCW1 ([facility]) methylPREDNISolone 4 MG Oral Tablet Therapy Pack (MEDROL DOS EPACK) [id number] 04/27/2020 12:00:00 AM EST active Lumba r radicular pain follow package directions [facility] Lumbar radicular pain 4 mg 04/27/2020 12:00:00 AM EST tablets,dose pack 21 TAKE BY MOUTH FOLLOWING PACKAGE DIRECTIONS TAKE BY MOUTH FOLLOWING PACKAGE DIRECTIONS SOLD: 04/28/2020 [facility] Estrogens, Conjugated (INTERMEDIATE) 0.625 MG/ML Vaginal Cream [Premarin] Premarin 0.625 MG/GM Premarin 0.625 MG/GM 04/25/2020 12:00:00 AM EST active Premarin 0.625 MG/GM eCW1 ([facility]) 50 mg 04/09/2020 12:00:00 AM EST tablet 45 TAKE 1 & 1/2 TABLETS BY MOUTH EVERY DAY TAKE 1 & 1/2 TABLETS BY MOUTH EVERY DAY SOLD: 03/12/2021 [facility] 50 mg 04/09/2020 12:00:00 AM EST tablet 45 TAKE 1 & 1/2 TABLETS BY MOUTH EVERY DAY TAKE 1 & 1/2 TABLETS BY MOUTH EVERY DAY SOLD: 07/02/2020 [facility] 50 mg 04/09/2020 12:00:00 AM EST tablet 45 TAKE 1 & 1/2 TABLETS BY MOUTH EVERY DAY TAKE 1 & 1/2 TABLETS BY MOUTH EVERY DAY SOLD: 08/05/2020 [facility] 50 mg 04/09/2020 12:00:00 AM EST tablet 45 TAKE 1 & 1/2 TABLETS BY MOUTH EVERY DAY TAKE 1 & 1/2 TABLETS BY MOUTH EVERY DAY SOLD: 12/02/2020 [facility] 50 mg 04/09/2020 12:00:00 AM EST tablet 45 TAKE 1 & 1/2 TABLETS BY MOUTH EVERY DAY TAKE 1 & 1/2 TABLETS BY MOUTH EVERY DAY SOLD: 01/01/2021 [facility] 50 mg 04/09/2020 12:00:00 AM EST tablet 45 TAKE 1 & 1/2 TABLETS BY MOUTH EVERY DAY TAKE 1 & 1/2 TABLETS BY MOUTH EVERY DAY SOLD: 09/04/2020 [facility] 50 mg 04/09/2020 12:00:00 AM EST tablet 45 TAKE 1 & 1/2 TABLETS BY MOUTH EVERY DAY TAKE 1 & 1/2 TABLETS BY MOUTH EVERY DAY SOLD: 10/03/2020 [facility] 50 mg 04/09/2020 12:00:00 AM EST tablet 45 TAKE 1 & 1/2 TABLETS BY MOUTH EVERY DAY TAKE 1 & 1/2 TABLETS BY MOUTH EVERY DAY SOLD: 02/04/2021 [facility] 50 mg 04/09/2020 12:00:00 AM EST tablet 120 TAKE 1 & 1/2 TABLETS BY MOUTH EVERY DAY TAKE 1 & 1/2 TABLETS BY MOUTH EVERY DAY SOLD: 04/12/2020 [facility] 50 mg 04/09/2020 12:00:00 AM EST tablet 45 TAKE 1 & 1/2 TABLETS BY MOUTH EVERY DAY TAKE 1 & 1/2 TABLETS BY MOUTH EVERY DAY SOLD: 11/01/2020 [facility] doxycycline hyclate 100 MG Oral Capsule Doxycycline Hy clate 100 MG Doxycycline Hyclate 100 MG 04/05/2020 12:00:00 AM EST 1.0 {capsule} suspended Doxycycline Hyclate 100 MG eCW1 ([facility]) doxycycline hyclate 100 MG Oral Capsule Doxycycline Hy clate 100 MG Doxycycline Hyclate 100 MG 04/05/2020 12:00:00 AM EST 1.0 {capsule} suspended Doxycycline Hyclate 100 MG eCW1 ([facility]) doxycycline hyclate 100 MG Oral Capsule Doxycycline Hy clate 100 MG Doxycycline Hyclate 100 MG 04/05/2020 12:00:00 AM EST 1.0 {capsule} suspended Doxycycline Hyclate 100 MG eCW1 ([facility]) doxycycline hyclate 100 MG Oral Capsule Doxycycline Hy clate 100 MG Doxycycline Hyclate 100 MG 04/05/2020 12:00:00 AM EST 1.0 {capsule} suspended Doxycycline Hyclate 100 MG eCW1 ([facility]) doxycycline hyclate 100 MG Oral Capsule DOXYCYCLINE HYCLATE 04/05/2020 12:00:00 AM EST capsule 10 TAKE ONE CAPSULE BY MOUTH EV ALEXI 12 HOURS FOR 5 DAYS TAKE ONE CAPSULE BY MOUTH EVERY 12 HOURS FOR 5 DAYS SOLD: 04/05/2020 [facility] doxycycline hyclate 100 MG Oral Capsule Doxycycline Hy clate 100 MG Doxycycline Hyclate 100 MG 04/05/2020 12:00:00 AM EST 1.0 {capsule} suspended Doxycycline Hyclate 100 MG eCW1 ([facility]) doxycycline hyclate 100 MG Oral Capsule Doxycycline Hy clate 100 MG Doxycycline Hyclate 100 MG 04/05/2020 12:00:00 AM EST 1.0 {capsule} suspended Doxycycline Hyclate 100 MG eCW1 ([facility]) 75 mg 03/25/2020 12:00:00 AM EST capsule,extended releas e 24hr 30 TAKE ONE CAPSULE BY MOUTH EVERY DAY TAKE ONE CAPSULE BY MOUTH EVERY DAY SOLD: 05/23/2020 [facility] 75 mg 03/25/2020 12:00:00 AM EST capsule,extended releas e 24hr 30 TAKE ONE CAPSULE BY MOUTH EVERY DAY TAKE ONE CAPSULE BY MOUTH EVERY DAY SOLD: 03/25/2020 [facility] 75 mg 03/25/2020 12:00:00 AM EST capsule,extended releas e 24hr 30 TAKE ONE CAPSULE BY MOUTH EVERY DAY TAKE ONE CAPSULE BY MOUTH EVERY DAY SOLD: 04/22/2020 [facility] 24 HR venlafaxine 75 MG Extended Release Oral Capsule Venlafaxine HCl ER 75 MG Oral Capsule Extended Release 24 Hour (EFFEXOR-XR) Venlafaxine HCl ER 75 MG Oral Capsule Extended Release 24 Hour (EFFEXOR-XR) 03/25/2020 12:00:00 AM EST 75 mg Oral active Take 1 capsule by mouth daily [facility] buspirone hydrochloride 10 MG Oral Tablet BUSPIRONE HCL 03/24/2020 12:00:00 AM EST tablet 60 TAKE 1 TABLET BY MOUTH TWO T IMES A DAY TAKE 1 TABLET BY MOUTH TWO TIMES A DAY SOLD: 04/22/2020 [facility] buspirone hydrochloride 10 MG Oral Tablet BUSPIRONE HCL 03/24/2020 12:00:00 AM EST tablet 60 TAKE 1 TABLET BY MOUTH TWO T IMES A DAY TAKE 1 TABLET BY MOUTH TWO TIMES A DAY SOLD: 07/25/2020 [facility] buspirone hydrochloride 10 MG Oral Tablet BUSPIRONE HCL 03/24/2020 12:00:00 AM EST tablet 60 TAKE 1 TABLET BY MOUTH TWO T IMES A DAY TAKE 1 TABLET BY MOUTH TWO TIMES A DAY SOLD: 05/23/2020 [facility] buspirone hydrochloride 10 MG Oral Tablet BUSPIRONE HCL 03/24/2020 12:00:00 AM EST tablet 60 TAKE 1 TABLET BY MOUTH TWO T IMES A DAY TAKE 1 TABLET BY MOUTH TWO TIMES A DAY SOLD: 03/24/2020 [facility] buspirone hydrochloride 10 MG Oral Tablet BUSPIRONE HCL 03/24/2020 12:00:00 AM EST tablet 60 TAKE 1 TABLET BY MOUTH TWO T IMES A DAY TAKE 1 TABLET BY MOUTH TWO TIMES A DAY SOLD: 08/30/2020 [facility] buspirone hydrochloride 10 MG Oral Tablet BUSPIRONE HCL 03/24/2020 12:00:00 AM EST tablet 60 TAKE 1 TABLET BY MOUTH TWO T IMES A DAY TAKE 1 TABLET BY MOUTH TWO TIMES A DAY SOLD: 06/19/2020 [facility] Meclizine Hydrochloride 25 MG Oral Tablet MECLIZINE HCL 02/23/2020 12:00:00 AM EDT tablet 14 TAKE ONE TABLET BY MOUTH TWI CE A DAY NEEDED FOR 7 DAYS TAKE ONE TABLET BY MOUTH TWICE A DAY NEEDED FOR 7 DAYS SOLD: 02/23/2020 [facility] 300 mg 02/23/2020 12:00:00 AM EDT capsule 20 TAKE ONE CAPSULE BY MOUTH EVERY 12 HOURS FOR 10 DAYS TAKE ONE CAPSULE BY MOUTH EVERY 12 HOURS FOR 10 DAYS S OLD: 02/23/2020 [facility] Meclizine Hydrochloride 25 MG Oral Table t Meclizine HCl 25 MG Oral Tablet (ANTIVERT) Meclizine HCl 25 MG Oral Tablet (ANTIVERT) 02/23/2020 12:00:00 AM EDT active [facility] 50 mg 02/18/2020 12:00:00 AM EDT tablet 90 TAKE ONE TABLET BY MOUTH EVERY DAY TAKE ONE TABLET BY MOUTH EVERY DAY SOLD: 02/20/2020 [facility] Losartan Potassium 50 MG Oral Tablet Losartan Potassium 06/2019 12:00:00 AM EDT ORAL active [facility] ([facility] Losartan Potassium 50 MG Oral Tablet [place] Potassium 50 MG Oral Tablet (COZAAR) Losartan Potassium 50 MG Oral Tablet (COZAAR) 02/18/20 12:00:00 AM EDT Oral active Take by mouth [facility] Losartan Potassium 25 MG Oral Tablet [place] Potassium 25 MG Oral Tablet (COZAAR) Losartan Potassium 25 MG Oral Tablet (COZAAR) 02/02/20 20 12:00:00 AM EDT active 1 tablet Orally O nce a day [facility] 25 mg 02/02/2020 12:00:00 AM EDT tablet 90 TAKE ONE TABLET BY MOUTH EVERY DAY TAKE ONE TABLET BY MOUTH EVERY DAY SOLD: 02/02/2020 [facility] Losartan Potassium 25 MG Oral Tablet Losartan Potassium 12:00:00 AM EDT ORAL completed [facility] ([facility]) 25 mg 01/26/2020 12:00:00 AM EDT tablet extended release 24 hr 30 TAKE ONE TABLET BY MOUTH EVERY DAY TAKE ONE TABLET BY MOUTH EVERY DAY SOLD: 04/22/2020 [facility] 25 mg 01/26/2020 12:00:00 AM EDT tablet extended release 24 hr 30 TAKE ONE TABLET BY MOUTH EVERY DAY TAKE ONE TABLET BY MOUTH EVERY DAY SOLD: 01/27/2020 [facility] 25 mg 01/26/2020 12:00:00 AM EDT tablet extended release 24 hr 30 TAKE ONE TABLET BY MOUTH EVERY DAY TAKE ONE TABLET BY MOUTH EVERY DAY SOLD: 02/26/2020 [facility] 25 mg 01/26/2020 12:00:00 AM EDT tablet extended release 24 hr 30 TAKE ONE TABLET BY MOUTH EVERY DAY TAKE ONE TABLET BY MOUTH EVERY DAY SOLD: 05/23/2020 [facility] 25 mg 01/26/2020 12:00:00 AM EDT tablet extended release 24 hr 30 TAKE ONE TABLET BY MOUTH EVERY DAY TAKE ONE TABLET BY MOUTH EVERY DAY SOLD: 03/24/2020 [facility] buspirone hydrochloride 10 MG Oral Tablet BUSPIRONE HCL 12/28/2019 12:00:00 AM EDT tablet 60 TAKE 1/2 TABLET BY MOUTH 2X/DAY FOR 7 DAYS THEN TAKE 1 TABLET BY MOUTH TWICE A DAY TAKE 1/2 TABLET BY MOUTH 2X/DAY FOR 7 DA YS THEN TAKE 1 TABLET BY MOUTH TWICE A DAY SOLD: 01/27/2020 [facility] 75 mg 12/21/2019 12:00:00 AM EDT capsule,extended releas e 24hr 30 TAKE ONE CAPSULE BY MOUTH EVERY DAY TAKE ONE CAPSULE BY MOUTH EVERY DAY SOLD: 02/20/2020 [facility] 75 mg 12/21/2019 12:00:00 AM EDT capsule,extended releas e 24hr 30 TAKE ONE CAPSULE BY MOUTH EVERY DAY TAKE ONE CAPSULE BY MOUTH EVERY DAY SOLD: 01/21/2020 [facility] 24 HR venlafaxine 75 MG Extended Release Oral Capsule Venlafaxine HCl ER 75 MG Oral Capsule Extended Release 24 Hour (Effexor XR) Venlafaxine HCl ER 75 MG Oral Capsule Extended Release 24 Hour (Effexor XR) 12/20/2019 12:00:00 AM EDT 75 mg Oral active Take 1 capsule by mouth daily [facility] topiramate 25 MG Oral Tablet Topiramate 25 MG Oral Tab let (Topamax) Topiramate 25 MG Oral Tablet (Topamax) 08/06/2019 12:00:00 AM EDT 25 mg Oral active Take 1 tablet by mouth Two Times Daily [facility] Losartan Potassium 25 MG Oral Tablet [place] Potassium 25 MG Oral Tablet (COZAAR) Losartan Potassium 25 MG Oral Tablet (COZAAR) 25 mg O ral aborted Take 25 mg by mouth daily [facility] 24 HR venlafaxine 75 MG Extended Release Oral Capsule Venlafaxine HCl ER 75 MG Oral Capsule Extended Release 24 Hour (EFFEXOR-XR) Venlafaxine HCl ER 75 MG Oral Capsule Extended Release 24 Hour (EFFEXOR-XR) aborted 1 capsule with food Orally Once a day [facility] Insurance Providers Payer name Policy type / Coverage type Policy ID Covered libertarian ID Covered libertarian's relationship to downey Policy Downey Plan Information [employer] 010/510 [id number] SP [id number] BLANCA CLAIM MGMT W [id number] Empl [id number] [place] [id number] 1 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 12 [id number] 1 [id number] [facility] [id number] SP [id number] [facility] [id number] SP [id number] [facility] [employer] [id number] Family Dependent [id number] [facility] [id number] SP [id number] [facility] [employer] [id number] Family Dependent [id number] [facility] I [id number] Self [id number] [facility] I [id number] Self [id number] [facility] I [id number] Self [id number] [place] [employer] [id number] Self [id number] [place] [employer] [id number] Self [id number] RPR- Needs Payer Match [id number] Self 103 ANSI-Commercial [id number] ANSI-Not a Secondary Insurance [id number] ANSI-Not a Secondary Insurance [id number] ANSI-Commercial [id number] [facility] [id number] S [id number] ANSI-Commercial [id number] ANSI-Not a Secondary Insurance [id number] ANSI-Commercial [id number] ANSI-Not a Secondary Insurance [id number] [id number] ANSI-Commercial [id number] ANSI-Not a Secondary Insurance [id number] ANSI-Not a Secondary Insurance [id number] ANSI-Commercial [id number] ANSI-Not a Secondary Insurance [id number] ANSI-Commercial [id number] ANSI-Not a Secondary Insurance [id number] ANSI-Commercial [id number] ANSI-Commercial [id number]-m78p-[id number] ANSI-Not a Secondary Insurance [id number]-by4ie [id number]-2h3r-1bp3-ul4e-rt0qro4l4jr0 ANSI-Not a Secondary Insurance [id number] [id number] ANSI-Commercial [id number] ANSI-Not a Secondary Insurance [id number]-1z4z-[id number] ANSI-Commercial [id number]-a0oe-[id number] [id number]-g6cz-0x07hu5wj8f1 ANSI-Commercial [id number]-[id number]-[id number] [id number]-dozt-7168-[id number] ANSI-Not a Secondary Insurance [id number] [id number] [id number]-yi59-9hn3-e5r0-kj6114mvn72i ANSI-Commercial [id number]-[id number]-rlqm-69s0-51k9-xyyf483zw7k3 ANSI-Not a Secondary Insurance [id number]-[id number] [id number]-n0yv-[id number] ANSI-Not a Secondary Insurance [id number]-[id number]-[id number] ep2z3t4 [id number]-z918-756n-[id number] ANSI-Commercial [id number]-ov0z-[id number] [id number]-54c7-749e-ig2m-4l2sf0wxkd79 ANSI-Commercial 14ck39sj-2fxo-[id number] 66zz89xc-6csh-4671-7y21-73qi885212qk ANSI-Not a Secondary Insurance [id number]-[id number]-y61j-[id number] 08j47fj f5wkdf7u-l706-01s2-u45d-c945k78y08cd ANSI-Commercial [id number]-g74n-[id number] 5307829z-834o-286s-u07d-[id number] ANSI-Not a Secondary Insurance [id number]-lcz0-u5k32 [id number]-fra8-z6i726b605m1 ANSI-Commercial [id number]-[id number] 0p088643-4r0k-31j8-580a-[id number] ANSI-Not a Secondary Insurance [id number] 62skm6w [id number]-w8j5006qhg1w ANSI-Not a Secondary Insurance [id number]-2n21-1w34-s614-dzyal [id number] [id number]-7u51-0n10-z167-swrmb348wdh6 ANSI-Commercial [id number]-b75b-[id number]-k50t-3264t20w35e9 ANSI-Commercial [id number]-36dy-422x-[id number] vgxz10g5-857w-48da-136u-[id number] ANSI-Not a Secondary Insurance [id number]-l5q7-75802 [id number]-fq92-8224-[id number] ANSI-Commercial [id number]-49m0-[id number] [id number]-d0gb-7h7d-94h6-[id number] ANSI-Not a Secondary Insurance [id number]-3n16-[id number] [id number] [id number]-554z-1c87-[id number] ANSI-Not a Secondary Insurance [id number]-s6n8-23698 [id number]-t3o6-2430083zn7m4 ANSI-Commercial [id number]-224w-[id number] kfl5cjf1-220g-425l-[id number] ANSI-Not a Secondary Insurance 07zcph9g-3y7q-9ry8-9q4c-2umy5 bfcdbec 41jyyu3q-4z2g-6mb6-0l7k-4uqn3kijcyfa ANSI-Commercial [id number]-a548-5f64-n95b-[id number] [id number]-l363-8j35-a96c-16x32y6d79ut ANSI-Commercial [id number]-[id number] [id number]-[id number] ANSI-Not a Secondary Insurance [id number]-[id number] [facility] [id number] [facility] [id number] SP [id number] [facility] [id number] SP [id number] [facility] [id number] SP [id number] [facility] COMMUNITY PLAN MCDO [id number] SP [id number] [facility] [id number] SP [id number] SELF PAY UNAVAILABLE UNAVAILA BLE [employer] [id number] SP [id number] [employer] SOLUTION [id number] SP [id number] [employer] [place] 010/510 [id number] SP [id number] [facility] [place] [id number] SP [id number] [employer] [id number] SP [id number] [facility] [id number] SP [id number] [facility] O [id number] S [id number] [facility] [id number] 2 [id number] [facility] O [id number] S [id number] [facility] Maintenance Organization (HMO) [id number] Self MEDICAID W UNAVAILABLE S UNAVAILA BLE [facility] COMM PLAN DANTE [id number] S [id number] ONE CALL CARE MANAGEMENT P [id number] S [id number] BLUE CROSS DANIELS PLAN [id number] SP [id number] [employer] [id number] SP [id number] SELF PAY 2 UNAVAILABLE 1 UNAVAILA BLE ONE CALL MEDICAL P [id number] S [id number] [facility] COMMUNITY PLAN MCDO [id number] SP [id number] SELF PAY ONLY [id number] SP [id number] [facility] COMMUNITY PLAN MCDO [id number] SP [id number] [facility] O [id number] S [id number] [facility] [id number] SP [id number] [place] [place] [id number] SP [id number] [facility] [id number] S [id number] ANSI-Not a Secondary Insurance [id number] ANSI-Commercial [id number] ANSI-Not a Secondary Insurance [id number] ANSI-Commercial [id number] ANSI-Commercial [id number] ANSI-Not a Secondary Insurance [id number] ANSI-Commercial [id number] ANSI-Not a Secondary Insurance [id number] Problems, Conditions, and Diagnoses Code Display Name Description Problem Type Effective Dates Data Source(s) M47.816 Spondylosis without myelopathy or radicu lopathy, lumbar region Spondylosis without myelopathy or radiculopathy, lumbar region Diagnosis 07/03/2020 03:32:43 PM [facility] M54.16 Radiculopathy, lumbar region Radiculopathy, lumbar reg ion Diagnosis 07/03/2020 03:32:32 PM [facility] M53.3 Sacrococcygeal disorders, not elsewhere classified Sacrococcygeal disorders, not elsewhere classified Diagnosis 07/03/2020 03:32:[address] [facility] M47.818 Spondylosis without myelopat hy or radiculopathy, sacral and sacrococcygeal region Spondylosis without myelopathy or radicu lopathy, sacral and sacrococcygeal region Diagnosis 06/22/2020 10:32:58 AM [facility] M54.2 Cervicalgia Cervicalgia Diagnosis 04/21/2020 02:59:18 PM [facility] [id number] Essential hypertension Essential hypertension Problem 02/09/2021 12:00:00 AM EDT [facility] ([facility], ) M47.816 [id number] Lumbar spondylosis Problem 01/22/2021 12:00: 00 AM EDT eCW1 ([facility]) N95.1 Menopause Menopausal and female climacteric states Problem 05/05/2020 12:00:00 AM EST eCW1 ([facility]) N94.10 Pain in female genitalia on intercourse Dyspareunia in female Problem 04/25/2020 12:00:00 AM EST eCW1 ([facility]) E86.0 Dehydration Dehydration Problem 02/18/2020 12:00:00 AM EDT MED[facility] ([facility]) I10 [id number] Essential hypertension Problem 02/17/2020 12 :00:00 AM EDT eCW1 ([facility]) G43.009 [id number] Migraine without aur a and without status migrainosus, not intractable Problem 02/17/2020 12:00:00 AM EDT [facility] Z71.3 Dietary management surveillance Dietary management mya veillance Problem 02/02/2020 12:00:00 AM EDT [facility] ([facility]) I71.2 Aneurysm of thoracic aorta Aneurysm of thoracic aorta Problem 02/02/2020 12:00:00 AM EDT [facility] ([facility] Surgeries/Procedures Procedure Description Date Indications Data Source(s) Electrocardiogram Complete 11/10/2020 12:00:00 AM EDT [facility] ([facility]) Complete ECHO 11/10/2020 12:00:00 AM EDT [facility] ([facility]) SURGERY CASE REQUEST OUTSIDE FACILITY ONLY <td>SURGERY CASE REQUEST OUTSIDE FACILITY ONLY</td><td>Routine</td><td>10/31/2020 11:12 AM EDT</td><td> Lumbar spondylosis</td><td></td> 10/31/2020 11:12:45 AM EDT Lumbar spondylosis [facility] Lumbar spondylosis OFFICE OUTPATIENT VISIT 15 MINUTES 10/10/2020 12:00:00 AM EDT [facility] ([facility]) SURGERY CASE REQUEST OUTSIDE FACILITY ONLY <td>SURGERY CASE REQUEST OUTSIDE FACILITY ONLY</td><td>Routine</td><td>09/28/2020 11:03 AM EDT</td><td> Lumbar spondylosis</td><td></td> 09/28/2020 11:03:50 AM EDT Lumbar spondylosis [facility] Lumbar spondylosis Med: Derm 1% Lidocaine with Epinephrine Injection Intr adermally to marked areas 08/18/2020 12:00:00 AM EDT eCW1 ([facility] SURGERY CASE REQUEST OUTSIDE FACILITY ONLY <td>SURGERY CASE REQUEST OUTSIDE FACILITY ONLY</td><td>Routine</td><td>08/10/2020 10:27 AM EDT</td><td> Lumbar spondylosis</td><td></td> 08/10/2020 10:27:03 AM EDT Lumbar spondylosis [facility] Lumbar spondylosis SURGERY CASE REQUEST OUTSIDE FACILITY ONLY <td>SURGERY CASE REQUEST OUTSIDE FACILITY ONLY</td><td>Routine</td><td>07/03/2020 3:40 PM EST</td><td> Sacral pain</td><td></td> 07/03/2020 03:40:30 PM EST Sacral pain [facility] Sacral pain Results ID Date Data Source [id number] 02/27/2021 05:20:52 PM EDT [facility] Name Value Range Interpretation Code Description Data Trang rce(s) Supporting Document(s) Progress Note [facility] BOXWDr4bZoEYNxKv35/DKHyuGGNhw5ZvEKmzAXk3HShfQMJzS9CiYHS7fW9gTEW5QPsLBaSyEwOyBMVc lbm [file] AgICAgICAgICAgICAgICAgICAgICAgICAgICAgICAg ICAgICAgICAgICAgICAgICAgICAgICAgICAgICAgICAgICAgICAgICAgICAgICAgICAgICAgICAgICAg ICAgICAgICANCiAgICAgICAgICAgICAgICAgICAgICAgICAgICAgICAgICAgICAgICAgICAgICAgICAg ICAgICAgICAgICAgICAgICAgICAgICAgICAgICAgIC AgICAgICAgICAgICAgICAgICANCiAgICAgICAgICAgICAgICAgICAgICAgICAgICAgICAgICAgICAgIC AgICAgICAgICAgICAgICAgICAgICAgICAgICAgICAgICAgICAgICAgICAgICAgICAgICAgICAgICAgIC ANCiAgICAgICAgICAgICAgICAgICAgICAgICAgICAg ICAgICAgICAgICAgICAgICAgICAgICAgICAgICAgICAgICAgICAgICAgICAgICAgICAgICAgICAgICAg ICAgICAgICAgICANCiAgICAgICAgICAgICAgICAgICAgICAgICAgICAgICAgICAgICAgICAgICAgICAg ICAgICAgICAgICAgICAgICAgICAgICAgICAgICAgIC AgICAgICAgICAgICAgICAgICAgICANCiAgICAgICAgICAgICAgICAgICAgICAgICAgICAgICAgICAgIC AgICAgICAgICAgICAgICAgICAgICAgICAgICAgICAgICAgICAgICAgICAgICAgICAgICAgICAgICAgIC AgICANCiAgICAgICAgICAgICAgICAgICAgICAgICAg ICAgICAgICAgICAgICAgICAgICAgICAgICAgICAgICAgICAgICAgICAgICAgICAgICAgICAgICAgICAg ICAgICAgICAgICAgICANCiAgICAgICAgICAgICAgICAgICAgICAgICAgICAgICAgICAgICAgICAgICAg ICAgICAgICAgICAgICAgICAgICAgICAgICAgICAgIC AgICAgICAgICAgICAgICAgICAgICAgICANCiAgICAgICAgICAgICAgICAgICAgICAgICAgICAgICAgIC AgICAgICAgICAgICAgICAgICAgICAgICAgICAgICAgICAgICAgICAgICAgICAgICAgICAgICAgICAgIC AgICAgICANCiAgICAgICAgICAgICAgICAgICAgICAg ICAgICAgICAgICAgICAgICAgICAgICAgICAgICAgICAgICAgICAgICAgICAgICAgICAgICAgICAgICAg ICAgICAgICAgICAgICAgICANCjw/xIWsN5esoQZuakU6R1pvYs5KDr8TCR6pg0XxIUEbOEqfmmWwYlwV IzHcOGQyObzKUlg4YBnpPB1BcZTjH1MvR0LkANmgSJ 6SHGNbKPBqxAKrESVkYUFkFoN3AOStCYamYN2YtUWlXMusLJNfTSDoZtIcEFAlWJIbYRBaZUZyTKJEIW HyMCIcGeAoALofZG1Aj0MuqXI6NKq+Ok2DEJ2zs5QuRQrnFZZeBG1gdp5EBJfMBsJyE7QtleO9KNDsGK BxYw2YPIWfUGSneNLlGSMqOEIARyGxU0NigF52LKJX Cj4+QSiborGgZyvORuZhLDDpt9FrXWh3BS5BASPaTIf0cPEvICUvY7Omi4PwKk30XCFtBzowGQvvtSRg LPLpDWAjrMVzYLWIGCYvgDJcVA1zUy9bUDTnUBT0KtQoIDIHQN8UBFVvMTXtrPBlTGBhFXLUSD7GADby BMO4DQJmzqTquFRhMXdsUQ6XHJRagyYyQcQhEXDYPR o+Nw8UOH2bm3GaUKujVtObJR0gse7NBHdENeBjC5H3eQIcH8N3EUxdBl9YKKLnFYOdXyvmPLWKSAsgWF 8UWB5wnoL3UQ9OmQKlHNHyDMVilSXaYUk7P66nyMCfQDjrVR1PSXY+Edward+Ss0XQQQmATKtYSImKmClSW GEHiEuU1SrJ6FQz7IhK0LbAK81zOwkkuXbCKatVU1B ZQ0vJJTtQQYMFO5XcDBxbI3zklZaMJApTRTELwNxV61bcRIjIKNkRVR3OZBoBo9XQQRuR1NtltPyvRzx fjHoUYXhUXRHDO8DYPbouuIvuBBrnHhxDA88dKlhWT6SPe4IBgBhTK1wnq1UbIAyGd2UPNHwFb2GCBSs LCOxDAPvBOO4FSYcEqXqWPrdZIUcGZTvLIS8NUWhJE YzBO2PRoOtTNVpBcKeNvJfRQAdQVBwnz0LBTLsFZXtYXB3PhSdYAZfVFJcENisJEMtVBJqQAX7UGTcTC UeHZ4ESrLiTNLnMZQ1TKIrJTHqFPZglo9EZUNmNVNeKVVnCbIuIAPxRJDyVEsvPAYfIJU0GJm4EMIoFR DcUP8VMeNlBXLaPPc8EPPcVLAbROFkqx2EBFFgBXTt BDe8SAFsIWKaFPCrYEmpUMKsAOPqHXS7RCPeVXSbPN7RFpPsGJEmBDI6ROQzFUWsHZIrps1LYYZtTCZs NYE9RZWwXGYfRQQxMOdeZMHgRVU0AxK8DLGlBGBgIT4NZsSmQBNuNVZ5MNLpLTFqCNBxdo9YXHCsEPSa HfltTHKmVJJvVTOoYVklSODiLSO3ESx3WNExDSPtBM 8CIjUqZWCoNDatZDYxVKJgNSDron7LUOWlOQNxRNX1OYDiPGQcOGGeIRlsKKGxMCB3DBMyHQPoTZJzBD 9SOiCiVVJdSGn6GtXbMDPtZBSnzz1LVRZeQZRcHJJ6KYSwCUNgOVHiHMhoQXIbYLWsJdm8FZJpYBKsLB 9OJsUxJKWdXtL6GWPwLSNgFXNdil9FKKVtKQVqGQx7 AHDeDATfZBDySAtoYZXgQMQoQSmaWKYhCDXsEY1GZnYaYLFcIzG9AlBvKGPnREKofp3QBLKoDBSeRfPv FbDaLMJhHFBxRSjqLJJbLWKbOkNrRCPtBCFjGA9LMkExPGIvXjH6WQqnOYZfJLWdjb7YAVBbGNVgFKE0 HFBgKLYtDNLkDWoqZHGtSCM0UoNlIAIfYOEzJU3GRk XuLLAtCzD3YVYwZCMpSICjmw4ZzPOcpUugnr1HCSxQSl2TaMygKEFpVQlgWe4neDUsKuLjQIPTNc0Eds VnEYIwLYJATNpnBWDcSYWcZMzgFwI2OHq1TpZpYRSgVFO9OEU7XGK2EoagAHObGuF8NTF1L4VxHJA6RD QtLCRfKnM4ZYW4CGKhChY5ZXSgQLU+PY9eMSq+Ri8Sy3OpdhZ9uhArCVcqSLX6Bs3GLWZNR6YOQz== ID Date Data Source [id number] 12/26/2020 09:19:57 AM [facility] Name Value Range Interpretation Code Description Data Trang rce(s) Supporting Document(s) Progress Note [facility] KXNLNr7aTcJEKsBg99/XINjkCONzx0OxAKeoXGr5EVyyCLTnL5VkGHZ0dN1eNPX6GKkMHvVrTmQxHINb lbm [file] ogICAgICAgICAgICAgICAgICAgICAgICAgICAgICAg ICAgICAgICAgICAgICAgICAgICAgICAgICAgICAgICAgICAgICAgICAgICAgICAgICAgICAgICAgICAg ICAgICAgICAgDQogICAgICAgICAgICAgICAgICAgICAgICAgICAgICAgICAgICAgICAgICAgICAgICAg ICAgICAgICAgICAgICAgICAgICAgICAgICAgICAgIC AgICAgICAgICAgICAgICAgICAgDQogICAgICAgICAgICAgICAgICAgICAgICAgICAgICAgICAgICAgIC AgICAgICAgICAgICAgICAgICAgICAgICAgICAgICAgICAgICAgICAgICAgICAgICAgICAgICAgICAgIC AgDQogICAgICAgICAgICAgICAgICAgICAgICAgICAg ICAgICAgICAgICAgICAgICAgICAgICAgICAgICAgICAgICAgICAgICAgICAgICAgICAgICAgICAgICAg ICAgICAgICAgICAgDQogICAgICAgICAgICAgICAgICAgICAgICAgICAgICAgICAgICAgICAgICAgICAg ICAgICAgICAgICAgICAgICAgICAgICAgICAgICAgIC AgICAgICAgICAgICAgICAgICAgICAgDQogICAgICAgICAgICAgICAgICAgICAgICAgICAgICAgICAgIC AgICAgICAgICAgICAgICAgICAgICAgICAgICAgICAgICAgICAgICAgICAgICAgICAgICAgICAgICAgIC AgICAgDQogICAgICAgICAgICAgICAgICAgICAgICAg ICAgICAgICAgICAgICAgICAgICAgICAgICAgICAgICAgICAgICAgICAgICAgICAgICAgICAgICAgICAg ICAgICAgICAgICAgICAgDQogICAgICAgICAgICAgICAgICAgICAgICAgICAgICAgICAgICAgICAgICAg ICAgICAgICAgICAgICAgICAgICAgICAgICAgICAgIC AgICAgICAgICAgICAgICAgICAgICAgICAgDQogICAgICAgICAgICAgICAgICAgICAgICAgICAgICAgIC AgICAgICAgICAgICAgICAgICAgICAgICAgICAgICAgICAgICAgICAgICAgICAgICAgICAgICAgICAgIC AgICAgICAgDQogICAgICAgICAgICAgICAgICAgICAg ICAgICAgICAgICAgICAgICAgICAgICAgICAgICAgICAgICAgICAgICAgICAgICAgICAgICAgICAgICAg TPGsELMvIXOnEPOuHIEaDMPiCTc9V6icUPZjUHQxMS1fVQz3Zl2+ONgSEuEsMID7hbPsxA6EQR4xa0Vq JRixHFXyg4YfZLd2WA5ARSJhPXvcKF7BKVottl3LBU ChGNGwxQCOb9dhNkLfTGY5HZFaWnaxXY1UBMHuU4rrmqIuRCKtEWUPIOlpRRAJXSrlZZOWZDWcNZClCp LzJaGnNAAwDX8LLXCoU922drQvUX8XPb1VXaFdPE6qpa7PRhTrEWOoBuxOHvh0JBsnTF5VvLXmgEXnIR ZfWDLWTaUaU6swo1DhZxNtZSGNOXxhAF5Wz6GuiZJv DQo+Xm7XGT4em8KnRPyhTNDsDF7uxh4YCXoUKlSxM5PyrNreQLUuf2sySGWjCC3xkYErWQL9GRSdd95b bgDJPY0wf6GwbnkzHHYqGASlEJ5kUB8cCQXnBEA6DnLdOSDAHP5KYRQzBURutYHlZYTvBFWEZR3FNRry DGT7SRRpjwHezJQfIKisNL3VJUNykjFlYfZrIPRENI o+Cx1PVA3lu3PhVAncSvQqZH6efy1BQNdDFbQwR6F4nNUzU4E7EOimNf5LKTBxIGHwKqlsEBGSSVrgGY 2KHZ4jxrN7NT7OxUInADQpBLVyiJExLCo7X78zpECjACutHM7MDYT+Edward+Lc4KTHNoEVCgCRNuXaIrVW LYUrElX8PqO2XTa7CoM7UyXO74zCujxuXvEPgyDR3H QU3gZHLxUSVLMM9WeJQnoE4lpoXyNGFbXZZVRfUeK19mhLTrTJWoNWI1PGDyAj9STJSyL6ArmuVqpMgh hjHqBRQgXHHPNQ8GWRujwaDhjZEesZuwAB75nPnpSV3LIk0MEkUoTQ5oop7GgBEcOl5GCZYqDq9LQHRj QFJmQTIvWVM5YUGzJvRvZHmgPFGtKDCuLYN6WOTbAM YgQS9JIvLuWVWiDkFtYfAnYGEhZQXffc2MFELwJSQzPot2EHXaNFOkNPAsPVkaGVIiZSYmLRF1BKLvGN VoUX0LFsTtORRrAMXeKMCnTEHsSDItaz2PEKJcPMOvZPKbQXVpSBOaNVKwMKrxXCTwWUP9GrgeWYIbUV IzUK9WGjCiGLNbMHg9IYEyGJRaGNAeme2UANOiITAv UEX9PtZzAHHhIUWmAYvkEYXxJONaUCIkUSLlSNAmMS2BDiJvUOCrDGC8EdkxRFQmVJZmni5KJKOhZPSb Wvm3IIMqNJIrYFAkNRgqMVHzIOT0WRIrPAZfUJHzUR3LMuSwXMVwXYT0SeblBHIvTHScxw0XLRCvQTFq VbW1CHPzTMRqWGMsBLebNPFuPKL5Wxs9NRSsNVZbLP 7ILrSiSCTpJIT4WutcNRDuQNZcsy7JSBEmYXQvGowiSBKlCQNnUWThAGgxTMGbBCU2UELhRYStROBvHX 9VVyRiQVGzYGvgDotjVEUhLDIiwy3YNCBrIOFuBAj3BSUzZRCcUWZeHEzyQKIeKZDvRYayALLgVUAuTD 9NIgChDNGnRiPaTBDeGDErBGEigo1LXMGgQGFsHEJ6 WiHzEZZhTLIlIBhvXFOxCVOhBwa1QZGuEIGsWB7ATtAnWVIwXdQ7KuExGLBjZFBdip3ILDGsIWFfLZux ZSPuRBZuIVVhNVxlQZAzBFTcKRs7LPAxZJJxEK3DOyEhVOTlApV9WDXlPZTbDAIgbp0UQFGoHZAhYkm8 ZOGqFHEnDSStTBqfBEZaGGIkRBRrHIZeYSPnAG7JGp CgBZBjOwDiWZZlEENkHPNcin5SeXEfbNpcrr0TEMhEPo3ScWdtGVJuKFjrCg6dlYVwIvRqZKATEx7Tet CjYBSuRSVRXMhdHHCeFKjtEZB9CGqmU2F2VCOcSHyrXWD4WxQxNPV0XOYrTBAhGcD9IHQuZzkyXPVgLX i1X0HrJIYmJvNmL2K2SNM2PAYiCgH+FC8nEEh+Rb3Wn6NoxqR8nwFwZBxmORK2WR1LIBAPB6UMRz== ID Date Data Source [id number] 12/14/2020 09:32:48 AM [facility]T [facility] Name Value Range Interpretation Code Description Data Trang rce(s) Supporting Document(s) Progress Note [facility] QIKECy0ySwPGNjBf18/NOCqcXVKme1ZkKKiaWVz0TWjaUCWkT3NvIAV0qA9qTCI2ZRjGGrIoYgLxGxK3 lbm [file] bxeHXFjkaR7Y4YWK7qzF7ebTftYqKv7q0VQgYBkcgQ4BywtBUI1Gz/Juan Antonio/4OPvSYvys+RcQs7hV/N9Xm [file] program professional+E8JeES8+cBUS7lNmA9uBLo+MR98xqMgU5HG6765 [file] AgICAgICAgICAgICAgICAgICAgICAgICAgICAgICAgICAgICAgICAgICAgICAgICAgICAgICAgICAgIC AgICAgICAgICAgICAgICAgICAgICAgICANCiAgICAg ICAgICAgICAgICAgICAgICAgICAgICAgICAgICAgICAgICAgICAgICAgICAgICAgICAgICAgICAgICAg ICAgICAgICAgICAgICAgICAgICAgICAgICAgICAgICAgICANCiAgICAgICAgICAgICAgICAgICAgICAg ICAgICAgICAgICAgICAgICAgICAgICAgICAgICAgIC AgICAgICAgICAgICAgICAgICAgICAgICAgICAgICAgICAgICAgICAgICAgICANCiAgICAgICAgICAgIC AgICAgICAgICAgICAgICAgICAgICAgICAgICAgICAgICAgICAgICAgICAgICAgICAgICAgICAgICAgIC AgICAgICAgICAgICAgICAgICAgICAgICAgICANCiAg ICAgICAgICAgICAgICAgICAgICAgICAgICAgICAgICAgICAgICAgICAgICAgICAgICAgICAgICAgICAg ICAgICAgICAgICAgICAgICAgICAgICAgICAgICAgICAgICAgICANCiAgICAgICAgICAgICAgICAgICAg ICAgICAgICAgICAgICAgICAgICAgICAgICAgICAgIC AgICAgICAgICAgICAgICAgICAgICAgICAgICAgICAgICAgICAgICAgICAgICAgICANCiAgICAgICAgIC AgICAgICAgICAgICAgICAgICAgICAgICAgICAgICAgICAgICAgICAgICAgICAgICAgICAgICAgICAgIC AgICAgICAgICAgICAgICAgICAgICAgICAgICAgICAN CiAgICAgICAgICAgICAgICAgICAgICAgICAgICAgICAgICAgICAgICAgICAgICAgICAgICAgICAgICAg ICAgICAgICAgICAgICAgICAgICAgICAgICAgICAgICAgICAgICAgICANCiAgICAgICAgICAgICAgICAg ICAgICAgICAgICAgICAgICAgICAgICAgICAgICAgIC AgICAgICAgICAgICAgICAgICAgICAgICAgICAgICAgICAgICAgICAgICAgICAgICAgICANCiAgICAgIC AgICAgICAgICAgICAgICAgICAgICAgICAgICAgICAgICAgICAgICAgICAgICAgICAgICAgICAgICAgIC AgICAgICAgICAgICAgICAgICAgICAgICAgICAgICAg ICANCjw/iAOuB7aufBFjtvD5L1gnCc1NCx4NIE6zf5KtTFJaDWyfphOpCnsWRgRwBTErRzuXCta0ITwv MZ2DoHRgX9KjI2AhKBcvVS3MCCCnXGTnrTVsFIFrLRZdEvE8OHWpLEmcEE8NmIOgYPvfTJKfKMDmRpPm UQGmAAQcDZHfEX8KURKyB440pxSoCw4FWy5JNmQuRH 0wbr3NBpGmJRKxMlpBIdo9GKklZE2DqSMqlIIzMOBqRQUALoBaD3sab8CiOwBxEINKLDjpDZ4Pm5WahV AxDQo+Zf7KWH4zj0EtFXbvOFLxQM0qst5IYEkGZbDaX7KfpVvhFZDrq0acJJQqCR3awFNgQOW1HLYjx7 0qkdJSWC3ez2VkrddqGILwGFMsWt4vIX9aXFPwUCL1 RwMwBHHIXA8MMDIkVDLycACvSHDuSPSGCS5JFSsqRCQ0MMHfkuZmxRRaFZviYW2WSXScckWoUvDoAMHR DQo+Dg3QON4gv6KwDZjwMNTkPK6ubt6DBWgXKlUeY0R1hKZrZ1S0UCrtAg9TQNRsWLNzXxBnBUHHHSes BZ0GXE9fydI1ED9FdOUkFSQlFJUolVDhFUy4M04ncZ FhQHfjXO3FFSL+Edward+Wr2BRUKjDEHyBZKhLiLpMVWWDtWeC2UlY0BSw9ZpP5IuMV34dCuvfmEhIHvxXJ 2KKQ0eZVInTQBXOV9EiIHtpR9rmzQaBdCmMSLRWiJpN08juCHlPQQiXLMhSMGrXh6PFSSeU7OahdMjzI eegsDpYZYkLVSSMQ9HIDbehfIhyUNvdIrdNZ70bOwn IQ1RAb5FUyBjJU8atx7QrAGdSx1ZCDRwQa9HSJRbNZMrLALiWBI0VITnIxStJDlnUEOjEVBxLYO1XLRp UEBkPV9KQwBwZKUiDpSgPEXaNBZoPGKdtz3GHRLgCZJbClrqKjIsFWKkYLDpLWlcDIToNPLcVAS4ZXPe USEoWD3MCtBfQUGbACO6IWUcTLLdEYWawf8AAMLbUN AvMLU2WtUzAHSpVKExVFxgAKNnQMW0UtMuEZHrKDXpHX6XGwKyBSJxDRp5FCTpQCRpNOHsjb6KHAUwRZ VmXIVcVfXlHXRlAIHnDNzgROMaDAPcSvY8FGJhTWPlGN8ZErYvUSDzGTOkMSHoIYNzJULwae7DCAZkBQ UiIuF6KiGbMUBoVNEnJAuyMUDuEAFbUKX6JVDdCTNw FW9RCgToMMLoJVK5SeZePEPxUPTgzy9WACJvCGDkVgcuDzMhFKMfPSCyRMhhTPRbSYHoAKZ7JXStPJZg DP4AMxIcPUOkCjBbGsZfMYVhKONvug7RRHWlKVPbHCT5ZrQiYLMfZFYiKPluWUWlIAE8Gcj4CAEsPLIq TY1ZRzSoHEPfWwTmRsApTEHkWAHhyy8LMSKnKBIqWy U6TEHaCUFsNTJzUGleNOInLJN8IHyjLEOaRDUsVX0LOzFwQZTgPjmbCvLbBFWuTOJqaf0KGOZeRIGjUV VaPmDbRPKrPRWoPOglEFUbOGX3GlKnPNYaXAFnHS7SQdUeZGupUKGOQsx0FAtvM8v4ETSjEh8TP9Wcf6 GhBzLrNWJGTSqkJY9eneZtCSKnZl9DF6qKXdasZPBr OuYhKwFdCLk9QMAcYRH1PIP4LuJgEKI9EKP4NQ0xPEC3ZQK6O0P3OuX3DJFmO6JrHQL6RjtxAgUaSpZ4 ASO4HfBeNS1VRt8GLxM0HKX6nZZeWp5LMpn2JMbCDuFrGQ9UIYx= ID Date Data Source [id number] 12/02/2020 03:10:03 PM EDT [facility] Name Value Range Interpretation Code Description Data Trang rce(s) Supporting Document(s) Progress Note [facility] YRQKQq3lTpJKOuXz86/ZNHzzNDKyu8DmBErgSOf3TBsfOKZuS3KdDCU9vI3pIMS4SFtGDqSgQdQuBxU3 lbm [file] XfNZZmO2KwVYBqLJx+RH7bPUo+Wo5Mf8YmulU7rwTvYCmtWXL2DB6ERROBT2QTTb== ID Date Data Source [id number] 11/23/2020 12:25:35 PM EDT [facility] Name Value Range Interpretation Code Description Data Trang rce(s) Supporting Document(s) Progress Note [facility] LAYXKt6uCrNZKpEz21/KGKzaNVEzm2FePQwhAAp5GRzqMYVbS0RjRWH6dC0uLNG4TVnQAoHrNbPdLxN9 lbm [file] AgICAgICAgICAgICAgICAgICAgICAgICAgICAgICAg ICAgICAgICAgICAgICAgICAgICAgICAgICAgICAgICAgDQogICAgICAgICAgICAgICAgICAgICAgICAg ICAgICAgICAgICAgICAgICAgICAgICAgICAgICAgICAgICAgICAgICAgICAgICAgICAgICAgICAgICAg ICAgICAgICAgICAgICAgDQogICAgICAgICAgICAgIC AgICAgICAgICAgICAgICAgICAgICAgICAgICAgICAgICAgICAgICAgICAgICAgICAgICAgICAgICAgIC AgICAgICAgICAgICAgICAgICAgICAgICAgDQogICAgICAgICAgICAgICAgICAgICAgICAgICAgICAgIC AgICAgICAgICAgICAgICAgICAgICAgICAgICAgICAg ICAgICAgICAgICAgICAgICAgICAgICAgICAgICAgICAgICAgDQogICAgICAgICAgICAgICAgICAgICAg ICAgICAgICAgICAgICAgICAgICAgICAgICAgICAgICAgICAgICAgICAgICAgICAgICAgICAgICAgICAg ICAgICAgICAgICAgICAgICAgDQogICAgICAgICAgIC AgICAgICAgICAgICAgICAgICAgICAgICAgICAgICAgICAgICAgICAgICAgICAgICAgICAgICAgICAgIC AgICAgICAgICAgICAgICAgICAgICAgICAgICAgDQogICAgICAgICAgICAgICAgICAgICAgICAgICAgIC AgICAgICAgICAgICAgICAgICAgICAgICAgICAgICAg ICAgICAgICAgICAgICAgICAgICAgICAgICAgICAgICAgICAgICAgDQogICAgICAgICAgICAgICAgICAg ICAgICAgICAgICAgICAgICAgICAgICAgICAgICAgICAgICAgICAgICAgICAgICAgICAgICAgICAgICAg ICAgICAgICAgICAgICAgICAgICAgDQogICAgICAgIC AgICAgICAgICAgICAgICAgICAgICAgICAgICAgICAgICAgICAgICAgICAgICAgICAgICAgICAgICAgIC AgICAgICAgICAgICAgICAgICAgICAgICAgICAgICAgDQogICAgICAgICAgICAgICAgICAgICAgICAgIC AgICAgICAgICAgICAgICAgICAgICAgICAgICAgICAg METyBAFrNNOaJOTpGBLjISIdSDVfGZZuWASvVDPoVBXtWJYpXVOaQWGxXRy0N3qbEJZgETBlPJ0sLEn4 Jz8+MIlKXsItSBG0jtChfC6BSH8bt7VkNNftNGFru4ErOZv7LG2VEOPoSGyfNA8IJUnjwn7EFASiHOWi xONNp6efOmTtLJW8YMXxKfszUB2KSIRrF9mqjjVpEC NpTBPJSLjlSJMTXBwbTOEWVQAxGLTcGiZoGzFmFZFfWZ8WHALbP300egEnHM7RCz0BDsPzJQ4bit2KEv ZtWNBoXhpKLgh0TDfjMI2IhDTdnVLcVUZwLTKHLdAeK3dft8PyRlPrTAIOVJouZH3Zw7ZntOOxSTe+Pg 1DCU4gs6HuKRnaUFYnLZ8mgi2GHJlGUbGsR5KeeUaw SCQoo9dhNZEvST1zxYSuLNH2GRCae49jfgHTQI4ad5LrryduFOLySCUrVi09BwPkAhEdFHp4HBMnSV4w ZXkgZW7WQLJ5NSnaNNTfBAEyP6rGLaObIGRdHqZfxWxdMJ3BJoZiL8TlnpZmcOVuRLIcGGSWJv3+DQpl quNcVrkWIgVoGRHpg1YhVPl2GS3VYTDeAEdmJY7HHK CcaZ7sWPrdDB1VFrYxHNKwEUBTTqWlB53ulIImEVq9G1LbGoQiEJMsPuufCPViFZndZkHuHCPyObDuHJ ogID4+ID4+AGzeGV6WYPyzfhKgQHIcCq1OKXSgRQHzCD5hPYBcRJLnA5L6pTgjGGTUVkJtK4qpiumwSS 3cXJXiZ894cBbobxJxLMLrMMIsLl7VVJLyMTL6FBUm oHJvBrupQZBEKFkzCS2MkEFsVXD4nA4kWEamQLSzGITkS4oZMwOxxJykLI11rOxbeuKanKDqMJu+Pg0K ZO4yp8VeMOr9tcBdICgtPGYnXQyxZCQqBUOhDLEbFVW3ZCY3PZKTQqYwZFZqISEcFDiiMSOaANFqvg0Q VMXvMYHlOoW6KxHxOAOqJGWaPGhxIULzOCI3WMJcKU GaCKIcMC6WMeTqQETcCPRmVJfoZBLiPKYbyh5SPQMdAISzZOGgQmTkBBPeJBXtXNmxDOWeNVH6QgI1BE AvXHNjZX7QXuJpOAYqCBu6DLaxWIUyVYSrbk1PWPUkYZWiMpXtAGEoQBUrDPKzWIyvACCwYPAgCuFiKL YpAYZdZF5XTsFlRPCxSSF0ERcfXDMcJVButq9EHWRf FXYgViVtKOVlMWSvRRQaIMllFLNuQCEuDyL5HMXbISLkSR0QGeQoBJJpMFH2ELXuCSAyDBJksc8EMWKf EDEgLSypOdEqAJOmISUvHAknCTYaPEM7BQL7OLNtUDQiXO4JNvYvEJBbRMadHcFcXBTxEZSwfl2PZLFi XNEbIfT3TuVoREKkMHCxAPvoPNXsRNU9UvN2EYFzNW UsMF3STqUqAAZsXCd9QZjtMHKlJAMtuk7JOWFnUSCfLDG5JHUtELLiQWYmCTdyRFBvKHAkURY2XDJlDT QkEJ3HZiRcDRIbMfMiKXJzEGKsFWTgvt8ISUAoRKTiPXW1GBFeFBOhEBCyKHxaTXEmDMOpVER8TIGxSS VcJE6SZwDsLUSdVsC7OJAdMMHmUBYwsm3FUOYkSZPm EOc8OAMuYXQmKNAwCTumROWqGMBpTQr0DFVzEQDcAF6BMzSpCDVlAbWeUfDnOZTvKZApcu8ZQJOwHOTu CvN2HeBsZMMoNFWxDArpNGIlZSO0TZY5PGVqJBAjED9QJkPpKCKgAcAaWBvsKCHqWLFkcd6NDCFfUIIq XDA2XqEeYLXrCWMrSWi4ucIwdJUqMDv8AZ7KJ3Tqvz GdXdVJAb2Jb237GMQiARFnZg2OF4gdEp4jKZQaSUSQEf9QLEb0RhDqRMH2RGZ2BPKbXTqmWUO0RpI8Xf JmZjJlMjliYTg+WCezNVLbNWD2MXcnTOO8MDHbZYkhRWazCvJlVgDuNGOdXD6iISXXTl4+DQpzdGFydH vtXBZFUmZ1BpMfUMbtEYVWSw6V ID Date Data Source [id number] 11/09/2020 09:02:00 AM EDT [facility] Name Value Range Interpretation Code Description Data Trang rce(s) Supporting Document(s) Thyroid Stimulating Hormone 2.100 uIU/ML 0.358-3.740 Norm al (applies to non- numeric results) [facility] ([facility] Free T4 0.96 ng/dL 0.76-1.46 Normal (applies to non-numeric resul ts) [facility] ([facility]) ID Date Data Source [id number] 11/09/2020 09:02:00 AM EDT [facility] ([facility] Name Value Range Interpretation Code Description Data Trang rce(s) Supporting Document(s) Aspartate aminotransferase [Enzymatic activity/volume] in Se rum or Plasma 8 U/L 7-37 Normal (applies to non-numeric results) [facility] ([facility]) Alanine aminotransferase [Enzymatic activity/volume] in Seru m or Plasma 18 U/L 12-78 Normal (applies to non-numeric results) [facility] ([facility]) Creatine kinase [Enzymatic activity/volume] in Serum or Plasma 6 1 U/L 26-192 Normal (applies to non-numeric results) [facility] ID Date Data Source [id number] 11/09/2020 09:02:00 AM EDT [facility] ([facility] Name Value Range Interpretation Code Description Data Trang rce(s) Supporting Document(s) Glucose, Fasting 78 mg/dL 70-100 Normal (applies to non-numeric results) [facility] ([facility]) Creatinine For GFR 0.66 mg/dL 0.55-1.30 Normal (applies to non -numeric results) [facility] ([facility]) Blood Urea Nitrogen 12 mg/dL 7-18 Normal (applies to non-nume laila results) [facility] ([facility]) Sodium Level 141 meq/L 136-145 Normal (applies to non-numeric res ults) [facility] ([facility]) Glomerular Filtration Rate Laboratory test result Normal (applies to non- numeric results) [facility] ([facility]) <content>Units are mL/min/1.73 m2</content>
<content></content>
<content>Chronic Kidney Disease Staging per NKF:</content>
<content></content>
<content>Stage I & II GFR >=60 Normal to Mildly Decreased</content>
<content>Stage III GFR 30-59 Moderately Decreased</content>
<content>Stage IV GFR 15-29 Severely Decreased</content>
<content>Stage V GFR <15 Very Little GFR Left</content>
<content>ESRD GFR <15 on PROJECT ENGINEERING MANAGER</content>
<content></content> Potassium Serum 4.8 meq/L 3.5-5.1 Normal (applies to non-numeric results) [facility] ([facility]) Carbon Dioxide Level 29 meq/L 21-32 Normal (applies to non-num maria results) [facility] ([facility]) Chloride Level 108 meq/L 98-107 Above high normal [facility] ([facility]) Calcium Level 9.0 mg/dL 8.5-10.1 Normal (applies to non-numeric re sults) [facility] ([facility]) Anion Gap 4 meq/L 8-16 Below low normal [facility] ( [facility]) ID Date Data Source [id number] 11/09/2020 09:02:00 AM EDT [facility] Name Value Range Interpretation Code Description Data Trang rce(s) Supporting Document(s) Triglycerides Level 64 mg/dL Normal (applies to non-nume laila results) [facility] ([facility]) HDL Cholesterol 74 mg/dL Normal (applies to non-numeric results) [facility] ([facility]) Cholesterol Level 189 mg/dL Normal (applies to non-numeri c results) [facility] ([facility]) LDL Cholesterol 102 mg/dL Above high normal [facility] ([facility]) Non-HDL-C 115 mg/dL Normal (applies to non-numeric resul ts) [facility] ([facility]) Cholesterol Risk Ratio 2.554 Normal (applies to non-n umeric results) [facility] ([facility]) ID Date Data Source [id number] 11/09/2020 09:02:00 AM EDT [facility] Name Value Range Interpretation Code Description Data Trang rce(s) Supporting Document(s) White Blood Count 4.9 10 4.0-10.0 Normal (applies to non-numeri c results) [facility] ([facility]) Red Blood Count 4.25 10 4.00-5.40 Normal (applies to non-numeric results) [facility] ([facility]) Hemoglobin 13.4 g/dL 12.0-15.5 Normal (applies to non-numeric resul ts) [facility] ([facility]) Mean Corpuscular Volume 95.8 fl 80.0-96.0 Normal ( applies to non-numeric results) [facility] ([facility]) Hematocrit 40.7 % 36.0-47.0 Normal (applies to non-numeric resul ts) [facility] ([facility]) Mean Corpuscular HGB Conc 32.9 g/dL 32.0-36.5 Normal (applies to non-numeric results) [facility] ([facility]) Mean Corpuscular Hemoglobin 31.5 pg 27.0-33.0 Norm al (applies to non-numeric results) [facility] ([facility]) Platelet Count, Automated 222 10 150-450 Normal (applies to non-numeric results) [facility] ([facility]) Red Cell Distribution Width 11.7 % 11.5-14.5 Norm al (applies to non-numeric results) [facility] ([facility]) Neutrophils % 54.9 % 36.0-66.0 Normal (applies to non-numeric re sults) [facility] ([facility]) Lymph % 35.4 % 24.0-44.0 Normal (applies to non-numeric resul ts) [facility] ([facility]) [place] % 6.7 % 2.0-8.0 Normal (applies to non-numeric resul ts) [facility] ([facility]) Baso % 0.8 % 0.0-1.0 Normal (applies to non-numeric resul ts) [facility] ([facility]) Eos % 2.0 % 0.0-3.0 Normal (applies to non-numeric resul ts) [facility] ([facility]) Immature Granulocyte % 0.2 % 0-3.0 Normal (applies to non-n umeric results) [facility] ([facility]) Neutrophils # 2.7 10 1.5-8.5 Normal (applies to non-numeric re sults) [facility] ([facility]) Nucleated Red Blood Cell % 0.0 % 0-0 Normal (applies to n on-numeric results) [facility] ([facility]) [place] # 0.3 10 0.0-0.8 Normal (applies to non-numeric resul ts) [facility] ([facility]) Lymph # 1.7 10 1.5-5.0 Normal (applies to non-numeric resul ts) [facility] ([facility]) Eos # 0.1 10 0.0-0.5 Normal (applies to non-numeric resul ts) [facility] ([facility]) Baso # 0.0 10 0.0-0.2 Normal (applies to non-numeric resul ts) [facility] ([facility]) ID Date Data Source [id number] 11/08/2020 10:10:14 PM EDT [facility] Name Value Range Interpretation Code Description Data Trang rce(s) Supporting Document(s) Progress Note [facility] ZFAWXo0hBiUFFnVr44/FTXpzLXThm8KzAJefSPg6AQxmCKLcD4WzBKB5tR7lZNJ9EAtNQvFdIjMmZlMg lbm [file] gkaF3yHBjbaTMDgzbJ8Y8FKQ5mgZ9pdXruDeDh5e5KHtQIjwqE1IcqxQDL4Sl/Juan Antonio/4OPvSYvys+LyZn [file] BELARUSIAN/3U99P5HACU+P3gPa5/MttqxhCA7iGj7H53RnqQu xyWC9E6lyhJP7LVpNxKdR6lg5VxqnxBVEPfCCcCAst7FOuLcSro9NfSCvGLoS9ElQkDOPUz8bkU+vDRg e53dqquOVQIkcMCbc4qbxO7xaeb6/SH2wfG5mc6n4KEKyBhls+vsNkriv9M8G78dYLmynN8hFC0huSE7 IZvUiMvy7CJ3CCRSoN4iu5M2AEoCQnysIvmTBH3p/h ArxjJ31ngbAOcFy79fzU6/AC/T1ufSx9uaOF3OCgds9qvuVygy4aTuoZVR2dqpUjTOF3Q1LKR2AGtEgm A8jl1wQVkWLKEgqOY+F4nWdiXeCk3C/Ym+z7EwerF4aV+Lv4M+zR9ND1Gm47xsPTicId5u/Mx/qziewC Manager Generation+pXebUA0jv4NI8kE9OLrmDcAZNY+Y2uQf2S6yDal [file] group home/EykxReuY0BGjf6ZgLRyIBmz0o4pEMB/VxpVPd6 [file] PXc88d46Xm9Cn1HePJVPhlRi+57sngshKt8dGM+Anthony wpD83PZBYbKrzZRaMIBJDbpSj1tyPPTrbMBmY+iqNn18m/boHfnI9Np54Js9tZR5+Qy7y7Zc6/fjzFuW ubzfIwCYoWKjCyidORmVRq6IJdbehRPC0jp5BgstZoizzzVAJ1fhuGsh7nkK9wymMgMr3A6r7YnKBwVZ okV5lcYzCojZBrVOgRonWCFM9nh8PhBMuuvGlVxU2a L5zqiAsnRQ0zTFTmzqDRFhOav+CbDnKvG1BYSWOxglHFnbwnI3e+V2eh92g9LRe1StTC+VPlzWUvJCSa JSRMoCbLIwEZwbD8K5vnDDxvUYCxQWIXIvzro92wWDq0VSB5oFYvMiM2S6uS6iaunVnHf+oVEfH06Rsr knZJ1KZ+5wJLwk/Q6CktDrQEkxOoCwIIV42o4UjP+y i6ufZF76eUzSCFkpXXqWd0La6986QR5wnckAyO98T3jHpYKwhsqbBk73tI9VxLfLWC9AmedgV5qpulav qxrFP2GncQghOgIsXAmQD0Qy1Yw7VN5FY2N+EgEgJcB0w0NWr4tKFxKq8n0bUc3sd/A58dAkKhklSOYA U939s5uhZCwazCergOJsmepzb6CAW/Q02DrNI9+qbK 3N7wydYzKT1rDdzuLzSnJgPbXIJzOvWqmZPPvSRgz8DE+tBhxh9zOTiU/MGuD7daPE/JLQf6bj3vTqLY 5Fl4/eenfBe+VfXfu0sYAFgFrugCDKwiW/tkv4UTCiREi6bWBOMunlI3GoyqSd4TT+liP0JmMOwFijJm wgQHyNcWt54SWC/u4lXo/Pk+MVmQRqNVhaUDc9k2lk Juan Diego+S9UsWXBUYFZvhnh89mULJhnOyXVmoTt6usjCshCUkB2dUUr3rf0LEnTaaNuzh4AzsKPb6FusjWC9y [file] XOF9PkAxOxB6KBNrDFL6XPY+ZH1vYUv+Ie9Wp5PmxcQ3tiLfMNr5XUn2Nr5ROQBLK6MWWt== ID Date Data Source [id number] 10/31/2020 08:47:38 PM EDT [facility] Name Value Range Interpretation Code Description Data Trang rce(s) Supporting Document(s) Progress Note [facility] FFYVRx2fTzDJQiQd47/OHQchPJMdp6MnWMmmOTt2HOapCJFqY8GqKOJ4fB8yPXU5QOxNKhTtZpQnFpM2 lbm [file] HpL7BJZsTqWgLC6LRz0ZZaJ1RQY0kEXbIx5WIcXfCTbGVrPaWU2CGFc= ID Date Data Source [id number] 10/04/2020 10:40:04 AM EDT [facility] Name Value Range Interpretation Code Description Data Trang rce(s) Supporting Document(s) Progress Note [facility] TADSMz7oEuPWZxBt76/ROScsVYWzj0FuBToxSZa9MYkjGHUeR5FdUTQ0eE8zPBT0SYkYKyWjRtYqMMV4 lbm [file] [facility] [file] IRL1DZHmWIc9QST+QJ5yWKn+Gt3Cg6MoimR4ioIwVGuxLNR5XZ4JTKAHS0JUBp== ID Date Data Source [id number] 10/04/2020 10:27:00 AM EDT [facility] Name Value Range Interpretation Code Description Data Trang rce(s) Supporting Document(s) SARS-CoV-2 RNA 2019 nCoV Real-Time RT-PCR: NOT DETECTED [facility] This lab was ordered by [facility] and reported by [facility]. ID Date Data Source [id number] 10/04/2020 05:57:26 PM EDT [facility] Name Value Range Interpretation Code Description Data Trang rce(s) Supporting Document(s) Specimen source [Identifier] of Unspecified specimen [facility] SARS-CoV-2 RNA 2019 nCoV Real-Time RT-PCR: NOT DETECTED [facility] Assay Performed [facility] Patients first test for [facility] Patient employed in healthcare setting [facility] Patient has symptoms related to [facility] When did you start to experience these symptoms [Date and time] [Phen X] [facility] Patient was hospitalized because of this condition [facility] patient was admitted to ICU for [facility] Patient resides in a congregate care setting [facility] status [facility] ID Date Data Source [id number] 09/28/2020 09:59:11 PM EDT [facility] Name Value Range Interpretation Code Description Data Trang rce(s) Supporting Document(s) Progress Note [facility] NSBWRo3aBjKBLzFg28/JJKkkBPCwt9VmCRinUQp9NRnyNHFpE5PnMHV3zF6fSKW0XBzCTgOuZaCwBWUo lbm [file] dGE+DQogICAgICAgICAgICAgICAgICAgICAgICAgIC AgICAgICAgICAgICAgICAgICAgICAgICAgICAgICAgICAgICAgICAgICAgICAgICAgICAgICAgICAgIC AgICAgICAgICAgICAgDQogICAgICAgICAgICAgICAgICAgICAgICAgICAgICAgICAgICAgICAgICAgIC AgICAgICAgICAgICAgICAgICAgICAgICAgICAgICAg ICAgICAgICAgICAgICAgICAgICAgICAgDQogICAgICAgICAgICAgICAgICAgICAgICAgICAgICAgICAg ICAgICAgICAgICAgICAgICAgICAgICAgICAgICAgICAgICAgICAgICAgICAgICAgICAgICAgICAgICAg ICAgICAgDQogICAgICAgICAgICAgICAgICAgICAgIC AgICAgICAgICAgICAgICAgICAgICAgICAgICAgICAgICAgICAgICAgICAgICAgICAgICAgICAgICAgIC AgICAgICAgICAgICAgICAgDQogICAgICAgICAgICAgICAgICAgICAgICAgICAgICAgICAgICAgICAgIC AgICAgICAgICAgICAgICAgICAgICAgICAgICAgICAg ICAgICAgICAgICAgICAgICAgICAgICAgICAgDQogICAgICAgICAgICAgICAgICAgICAgICAgICAgICAg ICAgICAgICAgICAgICAgICAgICAgICAgICAgICAgICAgICAgICAgICAgICAgICAgICAgICAgICAgICAg ICAgICAgICAgDQogICAgICAgICAgICAgICAgICAgIC AgICAgICAgICAgICAgICAgICAgICAgICAgICAgICAgICAgICAgICAgICAgICAgICAgICAgICAgICAgIC AgICAgICAgICAgICAgICAgICAgDQogICAgICAgICAgICAgICAgICAgICAgICAgICAgICAgICAgICAgIC AgICAgICAgICAgICAgICAgICAgICAgICAgICAgICAg ICAgICAgICAgICAgICAgICAgICAgICAgICAgICAgDQogICAgICAgICAgICAgICAgICAgICAgICAgICAg ICAgICAgICAgICAgICAgICAgICAgICAgICAgICAgICAgICAgICAgICAgICAgICAgICAgICAgICAgICAg ICAgICAgICAgICAgDQogICAgICAgICAgICAgICAgIC AgICAgICAgICAgICAgICAgICAgICAgICAgICAgICAgICAgICAgICAgICAgICAgICAgICAgICAgICAgIC SgTWDkXZPgYEMkXIAuYIKyCOZoTSNjRIm0B8poNDXaGWAvWV6eAJk3Am0+XSgGQrZxOEG8tkRmvK5QCT 2lf9OeFYayKTKmz3HtLCi9OP0YBAHgQSofON8KVWlq zf7FJTTaEMSihIFSx7eiRqWdXMI8CRLuEpsqQE6EKYHcG3vsjkRiPWNaBNKFFBbhQTYXOJwrUTQVJWNe KYXrCtGcInYuBQVgHI7STMKbL094bgNbJK5HNz5GCvSnRI2all1EPzTaTROmMpgFLxj6WFwmIL1JnMTv qWCwIRBmDNNQGnFqB5prb7MmLpYlZNWTWVglDS6Og1 VudCAxDQo+Hw6PEJ7le3XuNDlcOTZmER8ibi6QWJbRAiZgM5ItbGdoIEFyx7hnXRSnHJ5paXYyBZK2WD Was93jzmYMPC3it8CecaciLCTaSAQvBW1bAl5mQJJzFRJuNbNuKLQULD7OAMQeULRwpIDfMSJdKCTWSB 8SQAozKMN4VNWbqmIhkGPzCNznVZ0KGYAnchXaOwHh MCBSDQo+So9MTO0yd6VdCZvdZpXoML8kor0TBYnADhClT5P2fBJjT5E5CNvoQz9TWGIbHIUmCctxDFOU DFbzJX1KHI1gitS3CM3YcENlSTTaWNXdmAReQJl3T48exPRzNLuaCR4VWGI+Edward+Oc2QAIZyVNWrMMNk XiDbPXKUNwHxL4KuP4ROq4XcN8PbFN44dMgyhrRsVB scFB8TLH3zLVMgLIFTSF9UaJFunM8hzaWfSWQuJFPBGrPbP63vaBYiMBMzMUW9XILbJg8PHYAgU8Owxb VndRfyvrHhBPKqUOZAUY5VGPumbaJypWNhuQpbAE56xTdoUT6VYd2CYgJsFK9ahq5UzHSfCv4ILEFoMu 2OHBZaKYEaKZZfKUQ8XWUbCvEzIKrzFWAmREWrNNR9 TBQwXDBsTZ5VPdXmFBKqYgSoEadnDAXhZGPhhz5UUBOeESHdHrRaVmZwNSOcHEGdOXbnNVFcXPZaAHZ1 SQHtIISeAJ5POfFiHNNoSMY0WjQoKJErKWHcjo8UQWRpDMXgVJDlCIVhFFJrXNZzUPuhUVWzTNQ6OGAi PEKnJRBkCG0SMxTxFOGdPIr8ASUaKMKsNBWgmf0IRO LrKMFzDII8VAUvZFFpLLIoIWwrZKAcIHKjVip1KRXpHIWnOP3XVtAnHEGyOYJ8TVZyJMFdZEUxgq4WNA LsYGKwYkv8TtCySGNgMTIsYNrwHBVeTUF6XtjwMZNaEMIsCR7ABaFjFZDvEIE3JMOpJYBxPMZdlh7UQW ZiZNLbASw9ZwPcMQJqTRWyYPvvXCWbVBX7KWXyXXZa IWGjWV5TEcWzFFOeTXAqQbViGTRwTTWpyd7TVZKbTLKfBpH7PIUhCNUeKGAtJQjpFXIoYNR9Qya4CBEg XWMhSN3VZgFuGTAeZYw0BsSoPFQmHKMxfx5DLDUcMGZkBTGtOPDbWFNjOCAgJRjlMTAxQEE4OyRmOQYj BVQeHV6FVxHjHJPlNvs0ZmjfUJKgNVSsxs9WFWPcVU WxXXt9GRKlBZYkRWKuLKosHTMoHPV3OSL2XJUcQZYbKO8LPzXfNFWvHxX6OsofBCEkRDOdee8BMZYkFH CnWET2DyPfKSBqPJIbUEomBRQdBIHjWiQ1PILgPAFuAU0FPsGoEMMuCxN2JvRwMHRzCYHllv0GCYAxWF VtSnBdXoMrRFYhPOQlYVgoCSRoYIXnNTz2FLNdAVQb CZ7ZAtZiPMQeHzLnHVirLDJgUVIyfx3HsUEobEhrwh1QNTlPIb2SlBlkVLVvFQxsFt9hqZZjIoCyCZAM Sd3LdmPiJYRxLAFUZSohOOJwAVlhJLNlFUV6RkApO6Q6Okt2FiAvHCPfNocaNsVwNTNlSwV9CWMvMoBk MjhjMzMzYTUyODQzMGNlNTNiODJmNjFhMDA+IF0g DQo+Ys7Hr9YgjkG7twMlJKdrShR0YK6CTULQL1ZFTj== ID Date Data Source [id number] 09/14/2020 11:00:00 AM EDT [facility] Name Value Range Interpretation Code Description Data Trang rce(s) Supporting Document(s) SARS-CoV-2 (COVID-19) RNA [Presence] in Respiratory specimen by K[facility] with probe detection Not Detected [facility] This lab was ordered by [facility] and reported by [facility]. ID Date Data Source [id number] 09/13/2020 01:03:33 PM [facility] Name Value Range Interpretation Code Description Data Trang rce(s) Supporting Document(s) Progress Note [facility] HCVLEa1xUrNJMxYn65/ZTZprQCJxt6ThFSdwSJk6IKwdXPPgJ5FkHXO9zS9pXRE8ZQpKRtDcVsHwKSP2 lbm [file] Juan Antonio/4OPvSYvys+OuYd5wS/X6OjU7TdCYD9+VVBdW7ljcQCQ9QSdPMWGzANnzjX2RurthwiAn7oFjecLy [file] ICAgICAgICAgICAgICAgICAgICAgICAgICAgICAgICAgICAgICAgICAgICANCiAgICAgICAgICAgICAg ICAgICAgICAgICAgICAgICAgICAgICAgICAgICAgIC AgICAgICAgICAgICAgICAgICAgICAgICAgICAgICAgICAgICAgICAgICAgICAgICAgICAgICANCiAgIC AgICAgICAgICAgICAgICAgICAgICAgICAgICAgICAgICAgICAgICAgICAgICAgICAgICAgICAgICAgIC AgICAgICAgICAgICAgICAgICAgICAgICAgICAgICAg ICAgICANCiAgICAgICAgICAgICAgICAgICAgICAgICAgICAgICAgICAgICAgICAgICAgICAgICAgICAg ICAgICAgICAgICAgICAgICAgICAgICAgICAgICAgICAgICAgICAgICAgICAgICANCiAgICAgICAgICAg ICAgICAgICAgICAgICAgICAgICAgICAgICAgICAgIC AgICAgICAgICAgICAgICAgICAgICAgICAgICAgICAgICAgICAgICAgICAgICAgICAgICAgICAgICANCi AgICAgICAgICAgICAgICAgICAgICAgICAgICAgICAgICAgICAgICAgICAgICAgICAgICAgICAgICAgIC AgICAgICAgICAgICAgICAgICAgICAgICAgICAgICAg ICAgICAgICANCiAgICAgICAgICAgICAgICAgICAgICAgICAgICAgICAgICAgICAgICAgICAgICAgICAg ICAgICAgICAgICAgICAgICAgICAgICAgICAgICAgICAgICAgICAgICAgICAgICAgICANCiAgICAgICAg ICAgICAgICAgICAgICAgICAgICAgICAgICAgICAgIC AgICAgICAgICAgICAgICAgICAgICAgICAgICAgICAgICAgICAgICAgICAgICAgICAgICAgICAgICAgIC ANCiAgICAgICAgICAgICAgICAgICAgICAgICAgICAgICAgICAgICAgICAgICAgICAgICAgICAgICAgIC AgICAgICAgICAgICAgICAgICAgICAgICAgICAgICAg ICAgICAgICAgICANCiAgICAgICAgICAgICAgICAgICAgICAgICAgICAgICAgICAgICAgICAgICAgICAg ICAgICAgICAgICAgICAgICAgICAgICAgICAgICAgICAgICAgICAgICAgICAgICAgICAgICANCjw/eHBh R1uvgSMhhgS4V0uhSw9GHl6ITZ3yb9KiWBAnJEaqlo ZeEemDLkYrDLBgShgJLye7JPicNW4GzHGaG2YzE5HtTOoxTZ5IUSVuUKKbgIOcSBOtSEOuWvV6VEGyRB okCC9AfGQtROswOSOeWRBxZbXlAEJxHMChDVZfVM9JEWSqJ548lpLvEj9GOl4WEtLfIW5pca0GAnNqNG GlOuaOKwr6ORmnUN9XkUThkWLhSLUxIBJBNcAcI4lc y0JyJxOtZJRQSVeeQP5Nh4EkaPTfTZg+Re7XEG2ga6OdRJrjPCOcCX0iqy8HFHzWBkSvM1MxhGhrVRTz p1pnGRZcEH3pdYPnEAF3PMGkr73qahVTUQ6zp5FancarKOQyOJXlVH5tXp4oJDQkGME4ObZeYPPHTR8M QVPaWYFxrZIrHHTiVJLZZZ7VYFjmGBT2AQFzeyUazL OcTVsiCA3WUXSizoJqXnQzVZPLEHa+Bi7FNY1ff0RzMXqfIXMzLX0lwh5PKAhCYmXvN2G0uQKpI6N3FU lpOw6DWRSfJAHaQtIwVADJYFdwJQ3EZA0lgpP1QV4UpHMkFPKlHUAqxTDuBWi9E48kjTSkJMwsCS7OVB A+Edward+Au9UMPVaIIUpFXAdHnSuCWZXCgFgY6RrF7IG p0OlM1NsOX62iIkyrnAvXAzzJJ2FDM0rUARpRPCUHM9LaWEenH9uohIqHeDiGGFAYbLdO77kqXPoPYNz TQHyBPBuZh2PTJRrW4MkbrAasJktkwEqYIJuDXGJIP1DZOigrwQarOTawShmVX84sTwmZE1MZp1CEiJp ZH8wmn1WiAWbKr5MQZVsJe2BXFRkGINbGSPvGBE0XY RcCkGaDNjpDBSkYNIrTZH1JOBoXTSlHX4DUcPfZRIzOgG9NYBqWHWfBFEptg3FOYDyZHXvDvYzYFRxVI CqFSNvCZlmCUPhECMbRWZ3BMBxUZKuYK1YPfPlJPZzMWV3WQBwNKDeUZYrej0HCMSoJZLzXGN6RUFoPB EiHDFnIGpbILWbNAF6RwJ9WJIxMYAwPA8REgCyVGVu YKj6NHkpPYEnZCUgio0IOUHbASGaVJPkZRGkOOMrGWNzSNfeFRXzFYW0WHM4YQXbQZOrMV5YGdOgFULg DML5BzguSIYcZRTeib3KVUYsYGSlOGH3XpRlRFTbBNTwNOyiYQIxJLWjPSV5QMUiOQTpEF4MFmPvWLMi RDR9OBooQVGkHQBklr7ZVMRySVPqXsYnPWRwWRDjZL GpTAjoLSMuDKNpApY5DIYbXCFjJK2KUuGvPPMdIyV6JqYbEASvHSRdso7RLEFoIOIpMpb0HWQnBTWqKT NwLEoyYTTuRGY9TUn2RPIfFIZbIM4PNnYvMUEjNpUcOofjTIKvLCCttu2QPCEpNOOhEIH1KJWxVTUvHB UeRIbxHMUcFZD8CQk2WLXjABDdAJ7SKjOoOHPhTpVc YzReWDOpIMVvkp3UZIMdDSLrWlU4MeEmOHKyAXKoBLgdYVMmZDM0KXA0BDSuQBXbJT3JZsJoUCfyJLAP Pod8KCpgN6v5CCXmRs5PG9Pzr1BaVvQpDHEOWTloXN3eyfTiJKQkHf5FM8nZDnsaHOYjTSVyWva3ZEIa DRClRIT7XiZxJ9C7FKB2QSIiFl7oYUX2T6CdEpG6Jq mhRBYqNCUwMGcnOiTbRblsFFaqVRAgUuUlOH7WOx8RYrY1NJC5nAAuZs4EQoT2IWUVEzHiPO8MHYx= ID Date Data Source [id number] 08/10/2020 12:57:48 PM EDT [facility] Name Value Range Interpretation Code Description Data Trang rce(s) Supporting Document(s) Progress Note [facility] XONZTb8aLnRVJgMx19/LXOdwXHFdk7YuEVqrGJs3CFzvRWKpG5HtXGL0zU9pDXO6NScARrFzKmHcYdS6 lbm [file] Jesús+Q/YvkE2IX9pJHhxW7isliJ7EWUtHYHLgmvV8oUYUJFfA22+Jl2rS4acGVjEietJVytnR2pulHfd2 [file] AgICAgICAgICAgICAgICAgICAgICAgICAgICAgICAgICAgICAgICAgICAgICAgDQogICAgICAgICAgIC AgICAgICAgICAgICAgICAgICAgICAgICAgICAgICAg ICAgICAgICAgICAgICAgICAgICAgICAgICAgICAgICAgICAgICAgICAgICAgICAgICAgICAgICAgDQog ICAgICAgICAgICAgICAgICAgICAgICAgICAgICAgICAgICAgICAgICAgICAgICAgICAgICAgICAgICAg ICAgICAgICAgICAgICAgICAgICAgICAgICAgICAgIC AgICAgICAgDQogICAgICAgICAgICAgICAgICAgICAgICAgICAgICAgICAgICAgICAgICAgICAgICAgIC AgICAgICAgICAgICAgICAgICAgICAgICAgICAgICAgICAgICAgICAgICAgICAgICAgDQogICAgICAgIC AgICAgICAgICAgICAgICAgICAgICAgICAgICAgICAg ICAgICAgICAgICAgICAgICAgICAgICAgICAgICAgICAgICAgICAgICAgICAgICAgICAgICAgICAgICAg DQogICAgICAgICAgICAgICAgICAgICAgICAgICAgICAgICAgICAgICAgICAgICAgICAgICAgICAgICAg ICAgICAgICAgICAgICAgICAgICAgICAgICAgICAgIC AgICAgICAgICAgDQogICAgICAgICAgICAgICAgICAgICAgICAgICAgICAgICAgICAgICAgICAgICAgIC AgICAgICAgICAgICAgICAgICAgICAgICAgICAgICAgICAgICAgICAgICAgICAgICAgICAgDQogICAgIC AgICAgICAgICAgICAgICAgICAgICAgICAgICAgICAg ICAgICAgICAgICAgICAgICAgICAgICAgICAgICAgICAgICAgICAgICAgICAgICAgICAgICAgICAgICAg ICAgDQogICAgICAgICAgICAgICAgICAgICAgICAgICAgICAgICAgICAgICAgICAgICAgICAgICAgICAg ICAgICAgICAgICAgICAgICAgICAgICAgICAgICAgIC AgICAgICAgICAgICAgDQogICAgICAgICAgICAgICAgICAgICAgICAgICAgICAgICAgICAgICAgICAgIC GmSEOlQRNuPGDgEDCcAIBgGNCcBEMzNUDeKPGgJPEqJVCkNLBrKJUxAGUbUHXdVNCpZFPiZGTcAGm7R5 rzQPCpMAIzWT2lNRw9Dh7+NXeGEjVtCPH9zoBjgM2D OU9sy4ZoFGfjPLMsk8HjLGp6XB1HVSDaERynML6SELiwsz2PWRBaRPZzxROMt5hyIgDpYOR3ESLeUtxj OV6GZPMtO0rckhPeBBNyYOVBVNpvQCRCRBztKBKJXWIjQZVqOuUoNaIxJRZrPJ6HCALkO975xvBzAS8I Uz1OQkXiBA8gpu0SSsCfLNBqBjtCHzg1RDvaLB9PrU WtfFOwBCYlIZMCZiAmB9tat6SgQgYsCJJIYFelOM0Rv1AruZHuEVz+Kl5BFO7tk5OtAMsnTEXhTX8alo 7CHFmXGmIvM4AtpHnnMWXtw5faHQIrGI7zwVQnDCC7CLSld36hczPUWT2yj0OwzoknNJUdEQTvQe4tPH 5gYPPvGARsImIpLOKXMV7JWKEcUMNxuUPwWEEwFYOF RG6FDVpiCUU6VLSfdhPocAMcOMupBU2FCIMcjxEdXeFyGXERWYv+Qd3UEB8yv8WkFBsiAkJpTJ9mlj7Y FXoEUlIeZ6G8lDYqP8S3YSlnCt0TOEKcAFBcZnyjCTYMSBnuXE0LBC9tilK6XR7ZcRHoKOWvYOCxdXKn CVe9P03zlKLrAKfkAX2UCJL+Edward+Qx9SUONsSOCrOZ QbVpAwZOUVRzRdL5RxI6VVh0CiK2KdUC31nYbrkkKrKDylCC8MUH8eRXTcSCGCIU4WiQSktV3bulUjTF WxTXNRYjHdL24xkTOfTZLeYDZ0UQTzTp8ZGGKcS2GupcOlbWudclLaIXPbAWVUEU6AEJpyenShdRFfcH grTJ54fAglYN6DWc0MJrUwJV0rta2EkEQeEd8FNNCk Dq7LNLCbRGDaIWUoMFR3PIIgOxKwUZvnQXDwJXMvFTS2IPRjEGYcRA5THfVuESVkLjY7BIzgIWYyUSAm sp4WAQZlKRXbUcldJzQeAGLdKKEmTUqfEEVcFSMhVLR6FNInPWWyQH4BNsHaYJPnYCFnABByAQHmYFQy mf3VUWOfKASbGWP7TMIyOICdBXPtSNiwXYZaXGD3Tb s9BKPsFWHvWL3SLwKiRWCsBOl5YBVgDBRhLWOqrl2FZPHqSEDyDCn3LEWyMSMvRGYyLSjbJHAyIAYrXX t9RWPoCLOqWG5TIcEgMGWcNFT7LgFyDKWxSGCpxc4URGLuGVCyMur5AwDwWVCpTZJlTSoeEFVqIAW1YY AhBNZtLMSaYR8SFuUzAADmABR6SLFjBBNuRRNvna7W WZYcCZYpLIX8CtLfTZZcONVoUXukBZLbAOM2XjcwYNDdNVBeVX5BHoNwJJFsFWC4OIOdOCPkHAMrhz8C XFBxKVQnWndpTBZmMAZhKBQmPYoiDSQvQZY0IZR3JSAhXKMgEI4PTzEbQHZaEVtkXTSbIFNgPNXlli5P RHWhPSIiUPsiJXRmLHZdWKHmBQsiSWIoZQJ1RIAcQX JxNKPkNP0RTfEjHNDsOpezXseaIYIbVZMlhf5OZNAuBQZxNQKzPXRzTQOzSGDcAMrxDZMdRID1QsY1DG UaDAZrRG6FBxMsWEKjRpK9RGhwQLHgYKEavy9OLSRkWSGzWJu3LwRqKTNtWKLrJGfwABNbPBQyZIk1CW CpOZQdHL9ZQwGfRHPsVvDsMFTdMDXmGGSahx1TGDTl VGYxKov8LpGjIELnFVTcDYsoWXZtKYChYXS8QANxZHHrWQ3AXmJhSZKeOvLjHdyeHLMyLFUwhu0KbELo hUurii5YAOjFFu1KhUfmFINaBLviQi4ecFSlRiGuALHVNn0NmhUiGJQmPUCGDUgmSZCsYLNkBDAvTbak GOMeTcKfPYVcXxY6BcZwRtO7EYVmDNLrIhK6ECN6Up LwJzJ8VXXaAmNpRAQlMEHjAUIhLlR9PbVhHEY+VE3xBQg+Ha9Lq8FuayW7inExDBuwRjJtBO7MBCENW5 YNC[facility]== ID Date Data Source [id number] 07/26/2020 10:05:00 AM EST [facility] Name Value Range Interpretation Code Description Data Trang rce(s) Supporting Document(s) SARS coronavirus 2 RNA Not Detected [facility] This lab was ordered by [facility] and reported by [facility]. ID Date Data Source [id number] 07/21/2020 04:08:12 PM EST [facility] Name Value Range Interpretation Code Description Data Trang rce(s) Supporting Document(s) Progress Note [facility] PDWAPh3yNtHPYnOt36/XWTvvRWNit8DzROgcHNf5LUfeXCUrR9LxLDM7kL1fTFN4RTgRGmOcMgPzZgO6 lbm [file] ID Date Data Source [id number] 07/10/2020 12:00:00 AM EST [facility] Name Value Range Interpretation Code Description Data Trang rce(s) Supporting Document(s) [facility] Rapid COVID Antigen Test Positive [facility] This lab was reported by [email or web address]. ID Date Data Source [id number] 07/04/2020 08:27:41 AM EST [facility] Name Value Range Interpretation Code Description Data Trang rce(s) Supporting Document(s) Progress Note [facility] YMBKOo1lAuMRNrBa38/RVXbrNCGmx6LmGUnmUWe9FFtxSJEyP5InHOV6uJ4aIOG2MCdEKgRkTcYyZiQ0 lbm [file] SENIOR DESIGNER/ART DIRECTOR/6JQnmagHVDccRVQNGNt3oRDFtNbKH+aLsceJQ3C [file] AgICAgICAgICAgICAgICAgICAgICAgICAgICAgICAg KTOgWSDxJYOeDHRmDMGuPONmQW6HJTGyWTGrLWMnPHOxFUSjIUOgUGAtRWCnXQUbEULcHAOaBDClNOVf ICAgICAgICAgICAgICAgICAgICAgICAgICAgICAgICAgICAgICAgICAgICAgICAgICAgICAgICAgICAg AB0OHBDgIVPeUCDmVMUuRVDtZMMpRMTwNTKmKBZiEF AgICAgICAgICAgICAgICAgICAgICAgICAgICAgICAgICAgICAgICAgICAgICAgICAgICAgICAgICAgIC ThDERoSGQaSFJaUJ1TLNZrPQYbLJCdXIFbUVDwGLEtWCEaHNJtCCLdGRQhTVZyLFLyHPWqEEOkVIDgYV AgICAgICAgICAgICAgICAgICAgICAgICAgICAgICAg OMPeJPIjGCFdJOHmVJRyITLlSRKkPA0QFPGeNXDyHCYgTKKlZPBqMSHlZFMhDNJvIHBfUTXsWOLzJZPj ICAgICAgICAgICAgICAgICAgICAgICAgICAgICAgICAgICAgICAgICAgICAgICAgICAgICAgICAgICAg RUVtUZ4GEQYzWETaLHTsSGObUMQrDHRpMXNcZWDtPD AgICAgICAgICAgICAgICAgICAgICAgICAgICAgICAgICAgICAgICAgICAgICAgICAgICAgICAgICAgIC QgICNwQKZwUVBaPPYyBB3ISMUgHTAgCBFrVKChIOBnCJZdLMCrJLMwSNEvGBHnKOJwCOLtEZEdMOEjLI AgICAgICAgICAgICAgICAgICAgICAgICAgICAgICAg HRJlSEOhVBSePMOcLSNpXFDmVXOjLOMjBT1XJOOgBUYtFGXhERSiLCXqWRDbRTSbAZCtYXFhIBInXEQp ICAgICAgICAgICAgICAgICAgICAgICAgICAgICAgICAgICAgICAgICAgICAgICAgICAgICAgICAgICAg GADxOPJpJG0AKYRzGQYuVZDiVBWeMTHmWTWcGRLpUM AgICAgICAgICAgICAgICAgICAgICAgICAgICAgICAgICAgICAgICAgICAgICAgICAgICAgICAgICAgIC HsZBVgJFEpRIDbVZMzBGFwRV8SKMYaAYSdTBIgJGIyPEWhQLBpWFElGUUcJVLdNOGhZSNrLAWvDKDkHM AgICAgICAgICAgICAgICAgICAgICAgICAgICAgICAg ONZrSYDkNZDcJSRcRMKdDROkBVCuSZMdZLHiBK4YFQ95sCFso6B4DTIxUL6sgia/Og2QOIpjumCezAGk QA1SHmCiVD9qbq0MOvWhQP8hns4YTJoHWoIuY4Z1lFVsWYHsXNNEBcRlZ63jXIwwCo67PAlgYBZaAgDf SCt4Hz1SXeDpE8qwRORkPuQ4IYAgVeI2WOHiJmG9PG DbOxHtBMHhQIVmCU9KDPFkK025xoFrZF0JKi4YJlQuKD3szq5MVlqpXOQhHgrGZvl5XJsjZF2LxKHduL UnOHWbCHBLZyLfA8ncr1FtLzidBMHMTHggEA6Ef0UqoCNfEHx+Io8FBS5eq9NlDQsiVPBwID2bhs5YJP hIKlQsV7OcwEmwLLEyt8xjHBQpGS6dvTYlWXP7HQXz b54tbiKHEH8sm7HrjvkeVACaITTlIq3cFN8cLKCbMNDqBzPxYVZOSL1EHZDrYGXdeOToITUxGDNWRM7B ZLezGZM6SIRstnLhjFOvKQtiOA1BYTDnsgFmXjdyYDENAJs+Dx8IAU6ia6KqQIguIVFpSN5zla5LVVuH OjBiQ7B8pFLxA4X0CLlkKe3MYNHnYJMkMfLmBTHGQU xvYD4JHX7lxcF1CY0EsOZnWQCyTHMopILxVVo0N16unYHuMXiqIM2VNZG+Edward+Sk2AGCKkVIAdAIHwEe QlXBLIVgFiD0XlK2YLr6QpM7TeZQ81zYlmoyGcXUxyBB1DHK3fLKIrFWKLIC0UrJClmH8frfDcQTRmBP MJQzJgL81nhWVdCYZjNCL6ECZlDh3PFBOhJ2TjpjRl yAqbjdLiCCGzCOFRQU0VNYohqvIdnZMqxHboFD71pGnyTB2XWz3FOeCyBO3fnt6MnPXrHc9XCHCuMY3G NYQsVQYyTFZuJLP3FWPxSvDaNEpaRGOjAXPwIIJ7GXCxVCXdXG8LWhJaFAGbHay3FAeaMYKpECImvr8L LVDjCBZrZOT4RRTpNQHhXRZxDUouNKPoJMFyFOQ3FL OpTJNjJP4ATiLeXNUnPOY4NcKhKNElJLHgig2HATIyZZDlDtbzLVXzHPOvUOXzOXfoZINjDPE4GsA6HS PlSFPgCM7TWuTqAZIlFKc9XVYjPSCzODTtps1YPQIcVQZqIPR4FrSlFQNkPTYfCUnaDVAlWPHlJsDgPF SeOYVlZQ7CGuXlDAKaXHYyRwEoHQPpCEMtpx3PHQDd BRTnMeG5EUSzAEAuSEYiHSbwCNCoQFJ0ODE5KAFpXBPeRA2RZxWwLZRtKNA2FtGkIFPkZFUgco4YYBHj WIXyLEzqHUGeMWFkAIKrNEufBLBdQVY4NnT9SARyTBYyAV5KIqGpGAWbHEI9GegiVPSbAQLmcx0ZBTEa EKHwNrZ6PaFqGAJlZRExWPblVMKmGVQ6NEw3VNKpAS FbEU8XFpNhJGQmPsk2AMYvOFUpMWGxji8OLOHpWQXmFUXhADPbGJPfNZWcLUafADBlVTU6TzetPYVnPA ApUT3JMcYxQQIgHsj9FQpmDGIyXGUlvd4HQESrLUEbPWT4FLYyMNYxYXCeXWyiGXDxNLZ0RkS9EQQzRO VaBK5NKaYvBVQkHpt2LuerTKIzVTWshj9LMSAyQRXm NHR3OLGtKKPmHMGnFMfzUVIeUOMiOeHqGUYdFONjGI3PKvYyFOSmZiV3EwHlQUElGGAxgr8KFTNcVIQb LGwbPpXuUCEzLPAcQOa2loQelKVnYKg1JT2GD1UlkgPyQrDOOe9Gp765IGSkQVWvHp4BO8wuDd9dHCGv FKLWSb4IUHd4WPOgULSqExHoYzGdQSKpTiwwGIByPH YzZTJiYjYwZWE+ZMq0DUCmEGXnXKUnRTZhVKJdTFM2MRYbBaRzPhHyMdLsFV5bGLAHOt5+DQpzdGFydH vvEJEMOsPeIFV3YEvsHQSZOj2X ID Date Data Source [id number] 06/22/2020 11:55:01 AM [facility] Name Value Range Interpretation Code Description Data Trang rce(s) Supporting Document(s) Progress Note [facility] LLGJRl2rOgFLBhNp06/CFRdcQLOax7EpLSfcSZs1SVvxLWTsX3WqEBT4wP0dEEI2PDdAJhKoYeQmUdC1 lbm [file] S5RWGtJzGlSY6VRo2CTfI8KYA2oQGnIr7JMdC6QLPOHpMfCB5LXDw= ID Date Data Source [id number] 06/22/2020 11:50:45 AM [facility] Name Value Range Interpretation Code Description Data Trang rce(s) Supporting Document(s) Progress Note [facility] WAGURs4xNmBACmIs09/JDWopLTXht8UkFVfdHQd3CRsaSRRuT0IxMEF3tX3pWBI1NMhRXzAoLoHpTzV0 lbm [file] XSANCj4+TKeqvHSlrDwpJPCUNuCnYXnlBNfmJEZNBo5X ID Date Data Source [id number] 05/22/2020 10:24:43 AM [facility] Name Value Range Interpretation Code Description Data Trang rce(s) Supporting Document(s) Progress Note [facility] UGZVEt0nMbSQMcQb72/HCEsoGCMwd2GnIQinSXa5EVzeWCAtQ0XqTRX1vW6sHHD0ENpTDwRbTdUbADR0 lbm [file] DQo= ID Date Data Source [id number] 05/22/2020 10:24:00 AM EST [facility] Name Value Range Interpretation Code Description Data Trang rce(s) Supporting Document(s) SARS-CoV-2 RNA [facility] This lab was ordered by [facility] and reported by [facility]. ID Date Data Source [id number] 05/23/2020 01:18:41 PM [facility] Name Value Range Interpretation Code Description Data Trang rce(s) Supporting Document(s) Specimen source [Identifier] of Unspecified specimen [facility] SARS-CoV-2 RNA 2018 nCoV Real-Time RT-PCR: NOT DETECTED [facility] Assay Performed [facility] Initial validation was performed by the Centers for Disease Control and Prevention (CDC) and additionally validated by the Dept. of Pathology [facility]. Negative results do not preclude SARS-CoV-2 infection and should not be used as the sole basis for patient management decisions.Additional information is available on the following FDA websites for health care providers and patients. https://www.fda.gov/media/607382/download, https://www.fda.gov/media/012882/download. Patients first test for [facility] Patient employed in healthcare setting [facility] Patient has symptoms related to condition [facility] When did you start to experience these symptoms [Date and time] [Phen X] [facility] Patient was hospitalized because of this condition [facility] patient was admitted to ICU for condition [facility] Patient resides in a congregate care setting [facility] status [facility] ID Date Data Source [id number] 04/29/2020 02:46:17 PM [facility] Name Value Range Interpretation Code Description Data Trang rce(s) Supporting Document(s) Progress Note [facility] OGZQOn0rAzKTKuWd87/BTCkyMBIho0HoMOlnPTv0YUvcZVLiA4XeVBD7fL6jLEP8DYpSEzThFoQaGlSf m [file] AgICAgICAgICAgICAgICAgICAgICAgICAgICAgICAgICAgICAgICAgICAgICAgICAgICAgICAgICAgIC AvECVjYRArGTPoQHHdRTCqJSKaUPNkGA6DBNSoYMCx ICAgICAgICAgICAgICAgICAgICAgICAgICAgICAgICAgICAgICAgICAgICAgICAgICAgICAgICAgICAg XIRlMNAqVAVzQJIbFEWiWJPaZFAuEGEjRVJuJGEyUZGhXQ9UCRZoIQUgQUIdQDXaZDQhKNIaSCSsOZJj ICAgICAgICAgICAgICAgICAgICAgICAgICAgICAgIC KwNULcMIZmUCKiCGVbEJLdIMUfTULmAMRlIMYaHFMaLLUxESKvUGToDWUqVW3XDAToGUIsKCIuVNYyEV AgICAgICAgICAgICAgICAgICAgICAgICAgICAgICAgICAgICAgICAgICAgICAgICAgICAgICAgICAgIC IgATXxATEcPFSkYUYaVIMkIUAvMYKsMZDfFR7LQYXu ICAgICAgICAgICAgICAgICAgICAgICAgICAgICAgICAgICAgICAgICAgICAgICAgICAgICAgICAgICAg FLKxNYTeCCXoDUQrOFQfGQUnGYTyLPVzUCTsQGIbLRTrOQZgVD7JDZMnLHAhRGKmAPXtOQTvEXWbXDSp ICAgICAgICAgICAgICAgICAgICAgICAgICAgICAgIC LzCUAzQXTnGFCaNZHvLLMeOTXnQZBqUURcDGJcFVVjLYNaPPHrMISjMVItJNXcFK6BLJXnXRAsISMvAM AgICAgICAgICAgICAgICAgICAgICAgICAgICAgICAgICAgICAgICAgICAgICAgICAgICAgICAgICAgIC YjTNXdZAIvDNRsPVKeUYXxDALhHMYcJMBlSPVpEF6D ICAgICAgICAgICAgICAgICAgICAgICAgICAgICAgICAgICAgICAgICAgICAgICAgICAgICAgICAgICAg AJHwJYViDJHnBSJsJUVkHDDbPXGzCPTwXXXeAWUmZEFvVLNkLNFaYH7WQVWbDIJmFOEyNCCuEVJeRXIv ICAgICAgICAgICAgICAgICAgICAgICAgICAgICAgIC PaLWQcCOYbQJTzKVSrWRYhNBKrCSMvXURmJOLqGGDvUUPiAETkCYDjCSKxGHIgDJBzMI9OQIAqLAXqUF AgICAgICAgICAgICAgICAgICAgICAgICAgICAgICAgICAgICAgICAgICAgICAgICAgICAgICAgICAgIC AgICAgICAgICAgICAgICAgICAgICAgICAgICAgICAg ZO5ETT62vWFmb7Z3YASeSQ2oblz/Kv0KDCicteQmsHOcHA9MPiAxPE0duq5WSeLxBS5eyw1SHMoJPtDd S4P6iZRtQUNoNDGAEeXiL38hPLenHe33YOtrUDXsInHpKIt7Gz0BFjWbL4rpEDGuWxK6RGPjBqL1MLVs HnJ5OHBxLxFwADEyUWIyKS0YAEQzP190avNqTO7IFd 2IHzJwJE5moa0YOocyAQOjAhmTRuw6IDivCF9NhPMwoTEjAPGkRQSCDoEmH2nzp6YlZwavMJHYMFgmLR 2Vd3CimCUgSSt+Ja1ZUU1hi9PqERvgXMRkZP4cly7SLPlYCaEiC7MwkKldZVQss4eyORHzKR7eqEJoQM F1GPuwzNobXE0vZpXFVAGonTlaSIQRFNCjrGZxFm2q ZI8ePCJiHDKyAwUiYPLFOP4VUWSdZYKgiBUsWGLgLNFLIG4QKHqxBPO6QXJzzrQreGPkDZgbEW2DDWIe bnQgMjggMCBSDQo+Xd5IPT3fo9KqQBjhMETlWS0vrp0RTCbHIhCkV2P6xIPeV6F3IRabTj4SXJUkWIQs PmUzFKHZISiuIN2KBK4ganT9QW2CdUVzRSGoSAFleG PhPSq8U12acZGkSIsbSV8SQBN+Edward+Tb6BXWDwUHMdXMNyYdChIAPLGzGzC4QeY1SYe2EcZ4XcBA53sA slhqKyZVefCQ6DCN0eOGRfWXSZXY7MmBIrdN8zarImJPHnLOSMOnIzR05goWOyKBLgJHO2NTWvAy4LCY IiM7LumbOzcMjwhaLrVRPzOVFOKT3SLKckwhOamNHs sDltAQ53tMoxTR3DSu5JTrVuWI6uhp9PeDLoYh0SXDLkAL4CGSKeOTBwULRsAYX4OAPiFbJfZClySDDy PEVvWJB3IXKfSCChHE9DFeXtLBIaZcg2FZAoTWCgFWOgdm1ZAPBnAHXqFVP1RCBjYRPkQJFwBXqiWNRc EIGmVIJ0ZTTgOPDzXH1XZxEbMMRjSWL4RyLzDMOiZR Uyng3SHONsIELiAfOqTeQkJUIlPWGsZYiwOEXqXRT4TBV9RDDhTWBpDY5EDsGxQEJhVNupJSQrWFLrRV Oujd3KVDUkONErOTL4LkWxBZCeBOWjPTkkAVSzNYOfIYe6SDSuJFYwAR8EYvAwHVEcESIoPhVxPLInCY Mytl9OICYkTUOvHtIxDeAkZNLwYPIfPAgoAJCwMNHg SYirONDdLQNaHD8ETjZyEYLwNML4TNyxKUWiLIDlrd8BDSFqBSJcRet3NpAsTSZrHTVpLHzrHLAoRRQ4 FZGqQWZkRPAfQC7SUlVxURSyNCPpVdNtACCxFMPiiy9ADGAfACOdDLYiDYYpTSOuGYLkRXfjTTBdFAB9 BeBqFLTtNSNkOX8IKuAzCHKvRrT9PmQbZNMoWRDivl 3OBFCgFOGtIfY0XSPhYOXiHKSdJSdxOJSvOKB7KAH3QSXkQVVhZC7PLiDbCZKmMqk2WFYnKQGaBZXyew 7VTZCzZBUtKHHxBSDvMOEbQBQmZDnoCXRzKGS7TiNcMXNoZBIlJY2VYiDxNHRiJhr1CQGcDDTeATLpry 6WTLAvRWIoGUZuIORvPTBzKMVcVUhiUEAbAXYoUcF9 FJTfJKYpJN8GZhKfSKQlQzO5WvBwZCXjJLJsiz8FKAXoNJWzRHc8ZDTtVNBwCHDsCCw4giXgrCOsZBj9 XZ0AR5ZmwqSrGtIQNh9Mf257MRIaMUOhUe1TM5tsMo9kFBTkTLYTEy5GQGd9IwQuNIKqSXYtPXC7H9P5 JDooKwI0WBK2RBh8SVIwXBa+IOu1YkKzQmH1VeLyZt wgLLXcB3R2PPH8IdGgKQwcDYD3KK5qYYULCk3+CEoyfZYakKgbRBJFXiBkXhCaAWfyKDRXJu7N ID Date Data Source [id number] 04/25/2020 12:00:00 AM EST [facility] Name Value Range Interpretation Code Description Data Trang rce(s) Supporting Document(s) 2019-nCoV RNA XXX KERRI+probe-Imp [place] This lab was ordered by [facility] and reported by [employer] ID Date Data Source [id number] 04/21/2020 05:04:09 PM [facility] MR CERVICAL SPINE WITHOUT CONTRAST [id number] FINAL RESULTInterpreted by:ADRIEN BishopRI CERVICAL SPINE WITHOUT CONTRASTCLINICAL STATEMENT: Cervical radiculopathyTECHNIQUE: Multiplanar, multisequential imaging of the cervical spine was performed without the administration of intravenous contrast.COMPARISON: NoneFINDINGS:Vertebral body height, alignment, and marrow signal is preserved.The cervical spinal cord is normal in signal and caliber.No epidural or paravertebral soft tissue mass or fluid collection is seen.Axial images angled through the disc spaces demonstrate the following:C4-5 central disc protrusion with cord contact. No neural foraminal narrowing.No additional focus of disc bulge or protrusion throughout the cervical region. No neural foraminal narrowing.IMPRESSION:Central disc protrusion C4-5 with anterior spinal cord contact. No myelomalacia or spinal stenosis. This document has been electronically signed by Bob Daily MD on 04/21/2020 5:02 PM Name Value Range Interpretation Code Description Data Trang rce(s) Supporting Document(s) ID Date Data Source [id number] 03/28/2020 07:08:31 PM [facility] Name Value Range Interpretation Code Description Data Trang rce(s) Supporting Document(s) Progress Note [facility] LJFHAi5tCmMPNsPj86/TONalWHNid2XuSBxxHKq9BBzuTLOmA9LcDRF0eT5eAQD0AIpYDkIaMzYtRDZi [facility] [file] LJFxClz0K9YlPuJoV8YiRXD+OB6tGLd+Pm0Uf5LmrrF1abOzPGzoJHUrOY3BFHGLS5TIZx== ID Date Data Source [id number] 03/16/2020 08:47:00 AM EDT [facility] ([facility] Name Value Range Interpretation Code Description Data Trang rce(s) Supporting Document(s) Glucose, Fasting 83 mg/dL 70-100 Normal (applies to non-numeric results) [facility] ([facility] Blood Urea Nitrogen 11 mg/dL 7-18 Normal (applies to non-nume laila results) [facility] ([facility] Creatinine For GFR 0.69 mg/dL 0.55-1.30 Normal (applies to non -numeric results) [facility] ([facility]) Sodium Level 141 meq/L 136-145 Normal (applies to non-numeric res ults) [facility] ([facility]) Glomerular Filtration Rate Laboratory test result Normal (applies to non- numeric results) [facility] <content>Units are mL/min/1.73 m2</content>
<content></content>
<content>Chronic Kidney Disease Staging per NKF:</content>
<content></content>
<content>Stage I & II GFR >=60 Normal to Mildly Decreased</content>
<content>Stage III GFR 30- 59 Moderately Decreased</content>
<content>Stage IV GFR 15-29 Severely Decreased</content>
<content>Stage V GFR <15 Very Little GFR Left</content>
<content>ESRD GFR <15 on [employer] ENGINE[employer]</content>
<content></content> Potassium Serum 4.4 meq/L 3.5-5.1 Normal (applies to non-numeric results) [facility] ([facility]) Carbon Dioxide Level 30 meq/L 21-32 Normal (applies to non-num maria results) [facility] ([facility] Chloride Level 108 meq/L 98-107 Above high normal [facility] ([facility]) Anion Gap 3 meq/L 8-16 Below low normal [facility] ( [facility]) Calcium Level 8.7 mg/dL 8.5-10.1 Normal (applies to non-numeric re sults) [facility] ([facility]) ID Date Data Source [id number] 02/16/2020 07:47:31 PM EDT [facility] Name Value Range Interpretation Code Description Data Trang rce(s) Supporting Document(s) Progress Note [facility] [id number]/LSUiuFRCvi6AjJVboDVg9NBmiLMJfQ1DjJLX8vX5vPUZ1HNyBQhJmXjLmFVZq lbm [file] PNVmNrPV1ISLi= ID Date Data Source [id number] 02/15/2020 07:38:00 AM EDT [facility] ([facility]) Name Value Range Interpretation Code Description Data Trang rce(s) Supporting Document(s) Thyroid Stimulating Hormone 2.360 uIU/ML 0.358-3.740 Norm al (applies to non- numeric results) [facility] Free T4 1.09 ng/dL 0.76-1.46 Normal (applies to non-numeric resul ts) [facility] ([facility]) ID Date Data Source [id number] 02/15/2020 07:38:00 AM EDT MED[facility] ([facility]) Name Value Range Interpretation Code Description Data Trang rce(s) Supporting Document(s) Glucose, Fasting 79 mg/dL 70-100 Normal (applies to non-numeric results) [facility] ([facility]) Blood Urea Nitrogen 10 mg/dL 7-18 Normal (applies to non-nume laila results) [facility] ([facility]) Glomerular Filtration Rate Laboratory test result Normal (applies to non- numeric results) [facility]) <content>Units are mL/min/1.73 m2</content>
<content></content>
<content>Chronic Kidney Disease Staging per NKF:</content>
<content></content>
<content>Stage I & II GFR >=60 Normal to Mildly Decreased</content>
<content>Stage III GFR 30- 59 Moderately Decreased</content>
<content>Stage IV GFR 15-29 Severely Decreased</content>
<content>Stage V GFR <15 Very Little GFR Left</content>
<content>ESRD GFR <15 on PROJECT ENGINEERING MANAGER</content>
<content></content> Creatinine For GFR 0.63 mg/dL 0.55-1.30 Normal (applies to non -numeric results) [facility] ([facility]) Potassium Serum 4.2 meq/L 3.5-5.1 Normal (applies to non-numeric results) [facility] ([facility]) Sodium Level 142 meq/L 136-145 Normal (applies to non-numeric res ults) [facility] ([facility]) Chloride Level 109 meq/L 98-107 Above high normal MED ENT ([facility]) Carbon Dioxide Level 28 meq/L 21-32 Normal (applies to non-num maria results) [facility] ([facility]) Anion Gap 5 meq/L 8-16 Below low normal [facility] ( [facility]) Calcium Level 8.8 mg/dL 8.5-10.1 Normal (applies to non-numeric re sults) [facility] ([facility]) ID Date Data Source [id number] 02/08/2020 02:46:37 PM EDT [facility] Name Value Range Interpretation Code Description Data Trang rce(s) Supporting Document(s) Progress Note [facility] QHHFGx5iNwGIViQh77/SPLqxFDYvj5DtEAfgBGe2FDuyVKKwN7VrNBG4pW2zDGJ7XFyAFuVlUlHjYCNe [facility] [file] AgICAgICAgICAgICAgICAgICAgICAgICAgICAgICAgICAgICAgICAgICAgICAgICAgICAgICAgICAgIC AgICAgICAgICAgICAgICAgICAgICAgICAgICAgICAg ULKfZH1JYLAgMUWoVAQpFKArDLBvQDNvTZRkSEQzSLJxLBVbUNNqJFFhCRZyUWPqMYKqPCXzOXOhHRYi ZMAdCYDoTZNhGKDgDMKdUVPfGRLgLKSnCDEdWIErFIKyPGNgFDPjZOIiWAUsDZ4VTXDxXPSsSVFmLKHi ICAgICAgICAgICAgICAgICAgICAgICAgICAgICAgIC KzIXLtCOZvTBWxPNWlWQMeRLQmQDWgGXAaTSUhCVIbKKTvYJWwPPVfQKJrBLUkLPJuPZFoQSBwHV8LCJ AgICAgICAgICAgICAgICAgICAgICAgICAgICAgICAgICAgICAgICAgICAgICAgICAgICAgICAgICAgIC AgICAgICAgICAgICAgICAgICAgICAgICAgICAgICAg LHBoVNSuNC5XYXMpIBEjMCPyQCFyQTGfEZRqPAIaABDqLSBvCEMtLXCzEHRyLYCsOTVhMSRkUWRdSYNd YHRkEWBcEYZvXFBlTSMnLZVtPIGyQRDdWFPwDTXnHZKxZKEyOKWxMQGvLMEgKSBnWB1MWUXtLMGjEEPp ICAgICAgICAgICAgICAgICAgICAgICAgICAgICAgIC AgICAgICAgICAgICAgICAgICAgICAgICAgICAgICAgICAgICAgICAgICAgICAgICAgICAgICAgICAgIA 0KICAgICAgICAgICAgICAgICAgICAgICAgICAgICAgICAgICAgICAgICAgICAgICAgICAgICAgICAgIC AgICAgICAgICAgICAgICAgICAgICAgICAgICAgICAg IMDwUABzYXYeDG4MMHNlUPTxEHZsHXFiCVQuNZMnODQbMNDjQMItLFHgNMVnHZKeQZVyXYHtLYBkOZDj HGCtZYYyHBCmRFBgROQnIYXeLRNkDECeYJMyDGUlCFGiLDNiLLThCKHlJLMpEOHuKUHkPL8GCVHkKFRq ICAgICAgICAgICAgICAgICAgICAgICAgICAgICAgIC AgICAgICAgICAgICAgICAgICAgICAgICAgICAgICAgICAgICAgICAgICAgICAgICAgICAgICAgICAgIC GaQK7FOYPyIUCiSDUbDZRoXAJeGQJwANRsXDEoSJJrQAJoTYPpSEWdRIYdKJElHGKsCMSdXUCcBNKbGA AgICAgICAgICAgICAgICAgICAgICAgICAgICAgICAg BTLfJJUbVMJgQJKzNZ1IGX75qTAps8J6QAFoJR5ylsr/Ms7PGUagugZysXOsBP7TQpEhXY9cem2VYlMi FY8dai1CEEiIOwCrF7W6dWJmDPFeRYRRImSpQ84aCVjkIl77CFczPEThHwNoQXj8Vt5HNqYcD6eiIYAj OsS5GIOzIkM3GPLbIdW8IXFjLhPtADKxRJZlRS2TNG MaS986bnAxCC2NHa5KIqLvVB6soq5FPthaYOUrEggIAow3OZwfOJ0EsDZyiBRcMBZiQCGYHnPoB7xav8 NqKcmrGLWHWYbbEX2Hw7CjcCYmENy+Dz6HJZ5ku8IyCEhxEPEaLW2hyb3EXScIYbQoN9UebOkePXHbg0 rhPASgYG8jpUZmJAA7MDWhh53rxpAZQO3sg0Dadlal HKFgFSMnIU5oFm6qFVFyUAEaXgWfBNMDYL6OMTTjXLXhyYVmGZEmMNLLYQ1WUJssCFR3SDGbmzQiwLEp DTsiOR9CIRHrmzCdMfntXHSZPSc+Jh4ZWF0yt3HxNAybDDUoMX6zvw1ILSxTVeQiQ7Z8dYOvZ6A1ZQnz Pz8GFQJcKRDfBeByMYVOYBrqPC3QPQ5hldX9WS5QcK WxFRGvWMRuxXMnEHj1R00nuDViFCjmUR7OZLV+Edward+Hp1ODGIyOEHdQJAhXhWaKRZXNoIkC1QeZ0OIj7 AeY0MsSB44cLwdjkUaZHlqKL5RYP9pJBAiEOYJTC5DrGHdsR1xwsHuJONtIQHSGkKlQ63xoJSyDCYjNP T1HDKjVp0QTIByR8OaciNcgVvnauTaNWHuYRUWWA4U FSqpgiQdbOGpqFehPT38dKrqKT9UVq5KMrFgIO4poi4PySKfUs9LTELtHR2UAATqOIKuFWQjKFR7OQVx DrNbTTwgTLHeXZStETY5OVXdOULeMJ1UZsUoTGKeSeg5UaUsWQRzBLLslh0MVQBuCWQoERF1INNsOQPa JISgCLtzJUGtMKPnAOI0RUGdPILyEE0YUyVhIMUcXL NnUCYyUUQrNCXoqk1KQRUlHEDhUMFrKEKhRWFcKNNfAJxsVHLiQUC1SSt4DXYlZHVhNN4OYkVbKAUdQY u5IobmEKSuBNJsai3ZRJNqJGBkKPLmPKIcSGXpRDXwVQqwWBYpBAXxGyT4JVZaQDMpNA3DRbGbDBFoQX LjZCpcJDKnXINglo6AEIAgVBKuRtG3WbGfHZQnHXZy CQnkPQOkACU7LFBiVZBcJNDiWK8EUxZrSXXvXGL8VYZtKQAwFSTbnu8VTPXbGZQnMGl0JkQwJONuXHAr HWhnZOYzNFL0EnBpNDWdPDZjJE9VJrZxXUBzOFR9LUSiXQAcPQFgkm5WWCNzJSNxUzQ1PnCkRAVrKOTg NSsiNXUxKFF5HEfkWSOdJCFkLN0XIcErVVPzXtp4QJ ncXUEgZKKbmt1JZSMmJWDxJCQtTyAqHSBeZPTzUOkxYAJiEUK3VwA5WWLvRFOeZU1KHtYwRNQvAwp8BH NpUXNrTQVyed9PCSLiYFTkJNG7HjOjYOLwCHVjITyjDHReCKS8QmT0JDZhYWGeHQ6GYoKfWRShQij1EW WdCUAnUQXjhu1JBUMrAWIvGLIaETVwRPXePLLeQCqt VQTxCKMxPgj9FAGcGOMwAQ5WDgWjHAGjZnI1ZIwvJMEmTZSexz2INGLnYALxXJltWtLqSWSdGXYgTCg4 ebSojXSqGDx6XU9KH9HhmcSdRgUENi6Kp172HOCsOVZcNz6KM1fjFg2dVJCsMWTBPr3BFQc2LLYpXXwx NTdlYzJlMWEyOGRiZjczYmJmYmFlMTkxMDc+IDxhMW KyVLD0Q7JvQmKtSFL8WMLoKxZsElItLQSoFVYmYy4lZHSRIl7+DQpzdGFydHhyZWYNCjMyMTUxDQolJU VPRg0K ID Date Data Source [id number] 01/26/2020 12:00:00 AM EDT [facility] Marlon Wong MD Patient Name:DANELLE MICHELLE[address] Date of : 1975[address] Date of Exam: 01/26/2020AdairOMKAR roman [id number]#: Fax: [phone] EXAM: CT THORAX WITH CONTRASTCLINICAL INFORMATION: History of thoracic aortic aneurysm.Low dose [address] scanning of the chest was obtained using 3 mmincrements after the administration of intravenous contrast andreconstructed in both coronal and sagittal scan planes. 75 cc of Ffkfvlg770 was administered intravenously.Once again, there is thoracic aortic tortuosity. The aortic root measures4 cm today, previously 3.7 cm measured in the same dimension. There is nomediastinal or hilar adenopathy. There are no pleural or pericardialeffusions. The superior pericardial recess is capacious, status quo. Theimaged upper abdomen and imaged osseous structures are within normallimits.Evaluation of the lung nieto shows no new abnormal nodules, masses, oropacities.IMPRESSION:Aortic root ectasia/aneurysmal dilatation as described above.Accredited by the [employer] in [place].CAT Thompson/Tamiko you for referring DANELLE MICHELLE to our office. Electronically Signed - BRADLEY ARRIAGA DO 01/27/20 14:09 Name Value Range Interpretation Code Description Data Trang rce(s) Supporting Document(s) ID Date Data Source [id number] 01/26/2020 12:00:00 AM EDT [facility] Marlon Wong MD Patient Name:DANELLE [address]HELLE[address] Date of : 1975[address] Date of Exam: 01/26/2020LiverpoOMKAR roman [id number]#: Fax: [phone] EXAM: US RETROPERITONEAL, LIMITED (AORTA, NODES OR KID)CLINICAL INFORMATION: History of thoracic aortic aneurysm.Multiple ultrasonographic images of the abdominal aorta were obtained fromthe level of the celiac access to the aortoiliac bifurcation and thelongitudinal and transverse scan planes along with color Doppler imaging.The maximal AP dimension of the abdominal aorta as measured in thelongitudinal scan plane is 2.4 cm.There is no evidence of common iliac arterial ectasia.IMPRESSION:No evidence of abdominal aortic aneurysm.Accredited by the [employer] in General [place] [employer].CAT Thompson/Tamiko benjamin for referring DANELLE MICHELLE to our office. Electronically Signed - BRADLEY ARRIAGA DO 01/27/20 14:10 Name Value Range Interpretation Code Description Data Trang rce(s) Supporting Document(s) ID Date Data Source [id number] 01/25/2020 11:59:18 AM EDT [facility] Name Value Range Interpretation Code Description Data Trang rce(s) Supporting Document(s) Progress Note [facility] UFVJWe2mAxWNKnDz57/AAXexLWXzm2CyMBwnIOe8HBdjFNGmG3EwHSH9cD1vLUA0ZReZTpLqUnAbYRN0 lbm [file] TD6MTk5IQtN1SNQ5qEWyNg7HTTygZthTMjNgQV9GBNg= ID Date Data Source [id number] 01/26/2020 12:11:47 PM T [facility] Service Cmnt XXX-Imp : NoneMicroorganism XXX Cult : 2019 nCoV Real-Time RT-PCR: NOT DETECTEDThis test method was designed to detect the causative agent of COVID-19. The Dept. of Pathology [facility] has Emergency Use Authorization (EUA) from the FDA to peform this test to allow for rapid response during a declared public health emergency.Initial validation was performed by the Centers for Disease Control and Prevention (CDC) and additionally validated by the Dept. of Pathology [facility]. Negative results do not preclude SARS-CoV-2 infection and should not be used as the sole basis for patient management decisions.Additional information is available on the following FDA websites for health care providers and patients. https://www.fda.gov/media/245063/download, ht tps://www.fda.gov/media/992925/download. Name Value Range Interpretation Code Description Data Trang rce(s) Supporting Document(s) ID Date Data Source [id number] 01/25/2020 11:59:00 AM [facility] Service Cmnt XXX-Imp : NoneMicroorganism XXX Cult : 2019 nCoV Real-Time RT-PCR: NOT DETECTEDThis test method was designed to detect the causative agent of COVID-19. The Dept. of Pathology [facility] has Emergency Use Authorization (EUA) from the FDA to peform this test to allow for rapid response during a declared public health emergency.Initial validation was performed by the Centers for Disease Control and Prevention (CDC) and additionally validated by the Dept. of Pathology [facility]. Negative results do not preclude SARS-CoV-2 infection and should not be used as the sole basis for patient management decisions.Additional information is available on the following FDA websites for health care providers and patients. https://www.fda.gov/media/968765/download, ht tps://www.fda.gov/media/992181/download. Name Value Range Interpretation Code Description Data Trang rce(s) Supporting Document(s) Microorganism identified in Unspecified specimen by [facility] This lab was ordered by [facility] and reported by [facility]. ID Date Data Source [id number] 01/25/2020 11:01:27 AM [facility] Name Value Range Interpretation Code Description Data Trang rce(s) Supporting Document(s) Progress Note [facility] QUSNGm4fYiXPWwPw85/KURepUGYil3TtDSbxCJw3JOkdWDLgN7KgKYB8yT4vVOE1PAoETyJoTnEgAQA1 [facility] [file] ICAgICAgICAgICAgICAgICAgICAgICAgICAgICAgICAgICAgICAgICAgICAgICAgICAgICAgICAgICAg ICAgICAgICAgICAgICAgICAgICAgICAgICAgICAgIC AgICAgICAgDQogICAgICAgICAgICAgICAgICAgICAgICAgICAgICAgICAgICAgICAgICAgICAgICAgIC AgICAgICAgICAgICAgICAgICAgICAgICAgICAgICAgICAgICAgICAgICAgICAgICAgDQogICAgICAgIC AgICAgICAgICAgICAgICAgICAgICAgICAgICAgICAg ICAgICAgICAgICAgICAgICAgICAgICAgICAgICAgICAgICAgICAgICAgICAgICAgICAgICAgICAgICAg DQogICAgICAgICAgICAgICAgICAgICAgICAgICAgICAgICAgICAgICAgICAgICAgICAgICAgICAgICAg ICAgICAgICAgICAgICAgICAgICAgICAgICAgICAgIC AgICAgICAgICAgDQogICAgICAgICAgICAgICAgICAgICAgICAgICAgICAgICAgICAgICAgICAgICAgIC AgICAgICAgICAgICAgICAgICAgICAgICAgICAgICAgICAgICAgICAgICAgICAgICAgICAgDQogICAgIC AgICAgICAgICAgICAgICAgICAgICAgICAgICAgICAg ICAgICAgICAgICAgICAgICAgICAgICAgICAgICAgICAgICAgICAgICAgICAgICAgICAgICAgICAgICAg ICAgDQogICAgICAgICAgICAgICAgICAgICAgICAgICAgICAgICAgICAgICAgICAgICAgICAgICAgICAg ICAgICAgICAgICAgICAgICAgICAgICAgICAgICAgIC AgICAgICAgICAgICAgDQogICAgICAgICAgICAgICAgICAgICAgICAgICAgICAgICAgICAgICAgICAgIC AgICAgICAgICAgICAgICAgICAgICAgICAgICAgICAgICAgICAgICAgICAgICAgICAgICAgICAgDQogIC AgICAgICAgICAgICAgICAgICAgICAgICAgICAgICAg ICAgICAgICAgICAgICAgICAgICAgICAgICAgICAgICAgICAgICAgICAgICAgICAgICAgICAgICAgICAg ICAgICAgDQogICAgICAgICAgICAgICAgICAgICAgICAgICAgICAgICAgICAgICAgICAgICAgICAgICAg ICAgICAgICAgICAgICAgICAgICAgICAgICAgICAgIC CaSFKyZPRuEGOoFHPnFADsCXh6L3ueRGJoEDIwYK6bGIc7Ck5+VEcKJaAhWWF6haKruO9NPK3tt4YnBQ ztPSLml7TzSNy9PE0FQTJmCPnlBV5RJYiaxc5ORVRxJTExdTRKq7nkWzUdOZU1UXHiFpasDB9SFWNnH6 hakuDyUZFrFSBETEvtDZXNFAlqHBPWDP7JWjDrT4Qm fG98DMFYFe8+KHkwjnXlWhaQUpPhWMSif9JfCUn6EI5MCYVvGaoap4FfAjKkFXXPOUleZO3NGSP8CWW3 YZUeKv9BTOSdH136ycPgVB6BSw4DUvAsZC2uww1JZyDvPMDjMifGMar7ZFcdXO4CmVYuUWvPij3itrZz bhIFg9MewlOmfGKRfI6pSUQkXFKWHIH3CA6rXL5XER W4XJnpWS5qCRCsREXkYzA0OFLXMD4RHLTeQLOpdOBeVGTsGMKWZQ9VGRlcNUW4TSJgjlPcmJIoSXuqCU 9QYXJlbnQgMjMgMCBSDQo+Hz3QXN9uq2XhOHulWDBiMV6xno9RUSuDXhFmL0G2gEHdQ6B0LGhwKh1EQQ NqJPUyMyGoCUNWAOwsCT2SDE9ldfH6BM8ChHBcKTNh OTSlgDAeAYq9J82yoBXbIDegKV2QAOX+Edward+Ir8WJWCnSEBsNTGtKvAaXSGLEnCtU8OxS3CCk1BhV6Re SR10wWmjnjSbMTkoQS7VDS3sGAHyJHBMXZ4LwHVfoH1gmzUmYeTkETPYVhRyF88uhMIoZQSsPQScUQWc Vy7WLRErB4HtroRwjRtwzdAbPGZhLYDEBU6ZYRusqn RrrXLgtQmvLV60eUopRI6LFa8IDgIzSB0kbp4MuWAeCc6SLHExKn4KMVKcFTKrDVRvPSY4NOVyHsNdZY oySZKvNZHxPRB6MALcLJWzYR0WJoQrCMXcPlJqMSqzNHPaEXRwjk1JWNYnXFMrPUg2XzLhYXPkBJMkFA zgGPPwVWLgDDH7JMIwELXiOD3ZWsJjDOSaSUZvZwEy DIVhETKvyl3SRQUpKYTwRWZtOEZrZYWvGHAnBParLEAcIJJ7HDL3LKJvUNJcNV5FCsGjIJIlQLpgHKIj PAItTSBgke6NFWEpVXYtJCI9FxDiGRKqPHBaKBxgUAVrMWM2PmwhUHUuANFwSJ7MRlUtEYFgAEQkJhNe AFDwWEDlex3IIGYlGANeBGAgWLMrQTUbNYVfLGlqYG IzXUFzQvUxYHGrIHXuGZ7ZUfQbZVEhIMT1CgGtKNOzJALnih9NKPQrJKGpJRp0EgRgQAMxAZSzLQreMY LzYHToQGUnNJYlVNAgWA8WTyFjDPImJvRmDGStSBQaODSsjz2OIOKmQXMeOjHgIMDpVGDwNAQjBNybFA MzINRiSYGuUVRwXCSzMX6BKrAjNBPjXrYhDMUeMSTc SOLjso6DBNEyYWGpLTKxVtHvYJWzCLPuMWthLZVyDSI5QjV5LWFrBARhVO8CMhPoBSWqQgXdFflmVMGc HZKmdg2AFJKrMBGpBnC2NJTcGVOaIFYnFXdjULYeBNL2Raj2ADRqWUZgEX6XPcMdISmtSZMMUuh0DYqw M4b6LKBmKz1VH6Zgz0CrUkDhCRAWFAesHS9hwvDlHN XeNh4CR9mJZmo9JWV0XDR7RNT1EsuzBCHbX0UdSoquRvObWUleSoe5Vz8rOBg1AhwkCAlsSYL4IFMjTA ElBZHjATHhGMJ3OTG5YQxuQcTiDR8JPa0TUtZ0VZO8cXKqHc3NMoH9GSPOQuFsPL6HALq= Procedure Social History Code Duration Value Status Description Data Source(s ) Smoking 01/11/2021 12:00:00 AM EDT Former Smoker completed Former Smoker eCW1 ([facility]) Smoking 01/11/2021 12:00:00 AM EDT Former Smoker completed Former Smoker eCW1 ([facility]) Smoking 01/11/2021 12:00:00 AM EDT Former Smoker completed Former Smoker eCW1 ([facility]) Alcohol intake 12/26/2020 12:00:00 AM EDT Current drinker of al cohol (finding) completed Current drinker of alcohol (finding) [facility] Tobacco use and exposure 12/26/2020 12:00:00 AM EDT Never used co mpleted Never used [facility] Smoking 12/26/2020 12:00:00 AM EDT Former smoker completed Former smoker [facility] Alcohol intake 11/23/2020 12:00:00 AM EDT Current drinker of al cohol (finding) completed Current drinker of alcohol (finding) [facility] Alcohol intake 10/31/2020 12:00:00 AM EDT Current drinker of al cohol (finding) completed Current drinker of alcohol (finding) [facility] Alcohol intake 09/28/2020 12:00:00 AM EDT Current drinker of al cohol (finding) completed Current drinker of alcohol (finding) [facility] Smoking 08/18/2020 12:00:00 AM EDT Former Smoker completed Former Smoker eCW1 ([facility]) Smoking 08/18/2020 12:00:00 AM EDT Former Smoker completed Former Smoker eCW1 ([facility]) Smoking 08/18/2020 12:00:00 AM EDT Former Smoker completed Former Smoker eCW1 ([facility]) Alcohol intake 08/10/2020 12:00:00 AM EDT Current drinker of al cohol (finding) completed Current drinker of alcohol (finding) [facility] Smoking 07/17/2020 12:00:00 AM EST Former Smoker completed Former Smoker eCW1 ([facility]) Smoking 07/17/2020 12:00:00 AM EST Former Smoker completed Former Smoker eCW1 ([facility]) Smoking 07/17/2020 12:00:00 AM EST Former Smoker completed Former Smoker eCW1 ([facility]) Smoking 07/17/2020 12:00:00 AM EST Former Smoker completed Former Smoker eCW1 ([facility]) Smoking 07/17/2020 12:00:00 AM EST Former Smoker completed Former Smoker eCW1 ([facility]) Smoking 07/13/2020 12:00:00 AM EST Former Smoker completed Former Smoker eCW1 ([facility]) Alcohol intake 07/03/2020 12:00:00 AM EST Current drinker of al cohol (finding) completed Current drinker of alcohol (finding) [facility] Alcohol intake 06/22/2020 12:00:00 AM EST Current drinker of al cohol (finding) completed Current drinker of alcohol (finding) [facility] Alcohol intake 04/29/2020 12:00:00 AM EST Current drinker of al cohol (finding) completed Current drinker of alcohol (finding) [facility] Smoking 04/21/2020 12:00:00 AM EST Former Smoker completed Former Smoker eCW1 ([facility]) Smoking 04/21/2020 12:00:00 AM EST Former Smoker completed Former Smoker eCW1 ([facility]) Smoking 04/21/2020 12:00:00 AM EST Former Smoker completed Former Smoker eCW1 ([facility]) Smoking 04/21/2020 12:00:00 AM EST Former Smoker completed Former Smoker eCW1 ([facility]) Smoking 04/21/2020 12:00:00 AM EST Former Smoker completed Former Smoker eCW1 ([facility]) Smoking 04/21/2020 12:00:00 AM EST Former Smoker completed Former Smoker eCW1 ([facility]) Alcohol intake 03/28/2020 12:00:00 AM EST Current drinker of al cohol (finding) completed Current drinker of alcohol (finding) [facility] Smoking 02/17/2020 12:00:00 AM EDT Former Smoker completed Former Smoker eCW1 ([facility]) Smoking 02/17/2020 12:00:00 AM EDT Former Smoker completed Former Smoker eCW1 ([facility]) Smoking 02/17/2020 12:00:00 AM EDT Former Smoker completed Former Smoker eCW1 ([facility]) Alcohol intake 02/16/2020 12:00:00 AM EDT Current drinker of al cohol (finding) completed Current drinker of alcohol (finding) [facility] Alcohol intake 02/08/2020 12:00:00 AM EDT Current drinker of al cohol (finding) completed Current drinker of alcohol (finding) [facility] Vital Signs ID Date Data Source UNK Name Value Range Interpretation Code Description Data Source(s) Systolic blood pressure 110 mm[Hg] 110 mm[facility]Hg[facility] Diastolic blood pressure 78 mm[Hg] 78 mm[Hg] [facility] (Health system) Body height 64 [in_i] 64 [in_i] [facility] ([facility]) 5'4" Body weight 153.00 [lb_av] 153.00 [lb_av] [facility] Body mass index (BMI) [Ratio] 26.3 kg/m2 26.3 k g/m2 [facility] (Health system) [place] body weight 120 [lb_av] 120 [lb_av] [facility] Body weight 69.401 kg 69.401 kg [facility] ([facility]) Body surface area Derived from formula 1.75 m2 1.75 m2 [facility] (Health system) Body weight 147.4 [lb_av] 147.4 [lb_av] eCW1 ([facility]) Body height 64 [in_i] 64 [in_i] eCW1 ([facility] Body mass index (BMI) [Ratio] 25.30 kg/m2 25.30 kg/m2 eCW1 ([facility]) Heart rate 58 /min 58 /min eCW1 ([facility]) Respiratory rate 18 /min 18 /min eCW1 ([facility]) Body temperature 98.5 [degF] 98.5 [degF] eCW1 ( [facility]) Systolic blood pressure 135 mm[Hg] 135 mm[Hg] e CW1 ([facility]) Diastolic blood pressure 63 mm[Hg] 63 mm[Hg] eCW1 ([facility]) Body height 65 [in_i] 65 [in_i] MEDENT ([facility]) 5'5" Body height 65 [in_i] 65 [in_i] MEDENT ([facility]) 5'5" Body weight 145.0 [lb_av] 145.0 [lb_av] eCW1 ([facility]) Body height 64 [in_i] 64 [in_i] eCW1 ([facility]) Body mass index (BMI) [Ratio] 24.89 kg/m2 24.89 kg/m2 eCW1 ([facility]) Systolic blood pressure 120 mm[Hg] 120 mm[Hg] e CW1 ([facility]) Diastolic blood pressure 78 mm[Hg] 78 mm[Hg] eCW1 ([facility]) Body weight 142 [lb_av] 142 [lb_av] eCW1 ([facility]) Body height 64 [in_i] 64 [in_i] eCW1 ([facility]) Body mass index (BMI) [Ratio] 24.37 kg/m2 24.37 kg/m2 eCW1 ([facility]) Body weight 142 [lb_av] 142 [lb_av] eCW1 ([facility]) Body height 64 [in_i] 64 [in_i] eCW1 ([facility]) Body mass index (BMI) [Ratio] 24.37 kg/m2 24.37 kg/m2 eCW1 ([facility]) Body weight 142 [lb_av] 142 [lb_av] eCW1 ([facility]) Body height 64 [in_i] 64 [in_i] eCW1 ([facility]) Body mass index (BMI) [Ratio] 24.37 kg/m2 24.37 kg/m2 eCW1 ([facility]) Body weight 142.6 [lb_av] 142.6 [lb_av] eCW1 ([facility]) Body weight 64.68 kg 64.68 kg eCW1 ([facility]) Body height 64 [in_i] 64 [in_i] eCW1 ([facility]) Body mass index (BMI) [Ratio] 24.47 kg/m2 24.47 kg/m2 eCW1 ([facility]) Systolic blood pressure 130 mm[Hg] 130 mm[Hg] e CW1 ([facility]) Diastolic blood pressure 72 mm[Hg] 72 mm[Hg] eCW1 ([facility]) Systolic blood pressure 134 mm[Hg] 134 mm[Hg] M EDENT ([facility]) On Average Diastolic blood pressure 91 mm[Hg] 91 mm[Hg] MEDENT ([facility]) On Average Body weight 137.00 [lb_av] 137.00 [lb_av] MEDEN T ([facility]) Body height 65 [in_i] 65 [in_i] MEDENT ([facility] 5'5" Body mass index (BMI) [Ratio] 22.8 kg/m2 22.8 k g/m2 MEDENT ([facility]) 03/16/20 Body surface area Derived from formula 1.68 m2 1.68 m2 MEDENT ([facility]) Body weight 130 [lb_av] 130 [lb_av] eCW1 ([facility]) Body height 64 [in_i] 64 [in_i] eCW1 ([facility] Body mass index (BMI) [Ratio] 22.31 kg/m2 22.31 kg/m2 W1 ([facility]) Heart rate 72 /min 72 /min eCW1 ([facility]) Respiratory rate 18 /min 18 /min eCW1 ([facility]) Body temperature 99.3 [degF] 99.3 [degF] eCW1 ( [facility]) Systolic blood pressure 136 mm[Hg] 136 mm[Hg] e CW1 ([facility]) Diastolic blood pressure 94 mm[Hg] 94 mm[Hg] eCW1 ([facility]) ID Date Data Source [id number] 11/13/2020 02:10:32 PM EDT [facility] Name Value Range Interpretation Code Description Data Source(s) PREFERRED NAME Danelle Danelle [facility] ID Date Data Source [id number] 10/03/2020 11:06:00 AM EDT [facility] Name Value Range Interpretation Code Description Data Source(s) PREFERRED NAME Danelle Mcclendon [facility] ID Date Data Source [id number] 08/10/2020 10:36:53 AM EDT [facility] Name Value Range Interpretation Code Description Data Source(s) PREFERRED NAME Danelle Mcclendon [facility] ID Date Data Source [id number] 10/04/2020 05:57:36 PM EDT [facility] Name Value Range Interpretation Code Description Data Source(s) PREFERRED NAME Danelle Mcclendon [facility] PREFERRED NAME Danellemalathi Mcclendon [facility] ID Date Data Source [id number] 10/11/2020 01:51:36 PM EDT [facility] Name Value Range Interpretation Code Description Data Source(s) WEIGHT RECORDED 142.4 lb 142.4 lb [facility] Body height Measured 64 in 64 in [facility] PREFERRED NAME Danelle Danelle [facility] PREFERRED NAME Danellemalathi Mcclendon [facility] ID Date Data Source [id number] 10/11/2020 01:53:12 PM [facility] Name Value Range Interpretation Code Description Data Source(s) WEIGHT RECORDED 141.8 lb 141.8 lb [facility] Body height Measured 64 in 64 in [facility] PREFERRED NAME Danelle Danelle [facility] PREFERRED NAME Danelle Danelle [facility] ID Date Data Source [id number] 07/07/2020 02:57:07 PM [facility] Name Value Range Interpretation Code Description Data Source(s) PREFERRED NAME Danelle Mcclendon [facility] ID Date Data Source [id number] 07/07/2020 11:18:56 AM [facility] Name Value Range Interpretation Code Description Data Source(s) PREFERRED NAME Danelle Mcclendon [facility] ID Date Data Source [id number] 10/11/2020 01:52:18 PM [facility] Name Value Range Interpretation Code Description Data Source(s) WEIGHT RECORDED 143 lb 143 lb [facility] Body height Measured 64 in 64 in [facility] PREFERRED NAME Danelle Mcclendon [facility] PREFERRED NAME Danelle Mcclendon [facility] ID Date Data Source [id number] 06/27/2020 04:17:05 PM [facility] Name Value Range Interpretation Code Description Data Source(s) PREFERRED NAME Danelle Mcclendon [facility] ID Date Data Source [id number] 06/22/2020 11:55:01 AM [facility] Name Value Range Interpretation Code Description Data Source(s) PREFERRED NAME Danelle Mcclendon [facility] PREFERRED NAME Danelle Mcclendon [facility] ID Date Data Source [id number] 05/29/2020 09:38:41 AM [facility] Name Value Range Interpretation Code Description Data Source(s) PREFERRED NAME Danelle Mcclendon [facility] ID Date Data Source [id number] 05/23/2020 01:18:50 PM [facility] Name Value Range Interpretation Code Description Data Source(s) PREFERRED NAME Danelle Mcclendon [facility] PREFERRED NAME Danelle Mcclendon [facility] ID Date Data Source [id number] 04/29/2020 02:46:17 PM [facility] Name Value Range Interpretation Code Description Data Source(s) WEIGHT RECORDED 138 lb 138 lb [facility] Body height Measured 64 in 64 in [facility] PREFERRED NAME Danelle Mcclendon [facility] ID Date Data Source [id number] 04/21/2020 05:04:09 PM [facility] Name Value Range Interpretation Code Description Data Source(s) PREFERRED NAME Danelle Mcclendon [facility] ID Date Data Source [id number] 03/28/2020 07:08:31 PM [facility] Name Value Range Interpretation Code Description Data Source(s) WEIGHT RECORDED 138 lb 138 lb [facility] Body height Measured 64 in 64 in [facility] ID Date Data Source [id number] 02/16/2020 07:47:31 PM [facility] Name Value Range Interpretation Code Description Data Source(s) WEIGHT RECORDED 138 lb 138 lb [facility] Body height Measured 64 in 64 in [facility] ID Date Data Source [id number] 02/08/2020 02:46:37 PM [facility] Name Value Range Interpretation Code Description Data Source(s) WEIGHT RECORDED 139 lb 139 lb [facility] Body height Measured 64 in 64 in [facility] Patient Treatment Plan of Care Planned Activity Planned Date Details Description Data Source (s) gabapentin 100 MG Oral Capsule 12/26/2020 12:00:00 AM [facility] Metoprolol Tartrate 25 MG Oral Tablet 07/17/2020 12:00:00 AM EST eCW1 ([facility]) Metoprolol Tartrate 25 MG Oral Tablet 07/17/2020 12:00:00 AM EST eCW ([facility]) Metoprolol Tartrate 25 MG Oral Tablet 07/17/2020 12:00:00 AM EST eCW1 ([facility]) Metoprolol Tartrate 25 MG Oral Tablet 07/17/2020 12:00:00 AM EST eCW ([facility]) Metoprolol Tartrate 25 MG Oral Tablet 07/17/2020 12:00:00 AM EST eCW1 ([facility]) Diclofenac Sodium 0.01 MG/MG Topical Gel 06/22/2020 12:00:00 AM [facility] 24 HR Bupropion Hydrochloride 150 MG Extended Release Oral Tablet 06/17/2020 12:00:00 AM [facility] 24 HR Bupropion Hydrochloride 150 MG Extended Release Oral Tablet [Wellbutrin] 06/16/2020 12:00:00 AM EST eCW1 (Critical access hospital) 24 HR Bupropion Hydrochloride 150 MG Extended Release Oral Tablet [Wellbutrin] 06/16/2020 12:00:00 AM EST [facility] (Critical access hospital) 24 HR Bupropion Hydrochloride 150 MG Extended Release Oral Tablet [Wellbutrin] 06/16/2020 12:00:00 AM EST [facility] (Critical access hospital) 24 HR venlafaxine 150 MG Extended Release Oral Capsule 06/02/2020 12:00:00 AM [facility] Estradiol 0.1 MG/ML Vaginal Cream [Estrace] 05/05/2020 12:00:00 AM EST [facility] ([facility]) Estradiol 0.1 MG/ML Vaginal Cream [Estrace] 05/05/2020 12:00:00 AM EST [facility] ([facility]) Estradiol 0.1 MG/ML Vaginal Cream [Estrace] 05/05/2020 12:00:00 AM EST [facility] ([facility]) Estradiol 0.1 MG/ML Vaginal Cream [Estrace] 05/05/2020 12:00:00 AM EST [facility] ([facility]) Estradiol 0.1 MG/ML Vaginal Cream [Estrace] 05/05/2020 12:00:00 AM EST [facility] ([facility]) methylPREDNISolone 4 MG Oral Tablet Therapy Pack (MEDR OL DOSEPACK) 04/27/2020 12:00:00 AM [facility] Estrogens, Conjugated (INTERMEDIATE) 0.625 MG/ML Vaginal Cream [Premarin] 04/25/2020 12:00:00 AM EST [facility] ([facility]) 24 HR venlafaxine 75 MG Extended Release Oral Capsule 03/25/2020 12:00:00 AM [facility] Meclizine Hydrochloride 25 MG Oral Tablet 02/23/2020 12:00:00 AM [facility] Losartan Potassium 50 MG Oral Tablet 02/18/2020 12:00:00 AM [facility] Losartan Potassium 25 MG Oral Tablet 02/02/2020 12:00:00 AM [facility] 24 HR venlafaxine 75 MG Extended Release Oral Capsule 12/20/2019 12:00:00 AM EDT [facility] topiramate 25 MG Oral Tablet 08/06/2019 12:00:00 AM T [facility] 24 HR venlafaxine 75 MG Extended Release Oral Capsule [facility] Losartan Potassium 25 MG Oral Tablet [facility]
[2021-03-20] MEDS ORDERED: LIDOCAINE 2% 100MG/5ML SDV (FOR ANES.) As Ordered ONE (12:29)
[2021-03-20] MEDS ORDERED: propofoL 200 MG/20 ML VIAL As Ordered ONE (12:29)
--- NOTE | 2021-03-20 13:34 | ROOR ---
Patient Name: Danelle Thompson Procedure Date: 03/20/2021 12:55 PM Date of : 1975 Age: 45 Room: [facility] Gender: Female Note Status: Finalized Procedure: Colonoscopy Indications: Screening for colorectal malignant neoplasm Providers: Boom Carrasco MD Referring MD: Melisa Kaufman Md Requesting Provider: Medicines: Monitored Anesthesia Care Complications: No immediate complications. Procedure: Pre-Anesthesia Assessment: - Prior to the procedure, a History and Physical was performed, and patient medications and allergies were reviewed. The patient is competent. The risks and benefits of the procedure and the sedation options and risks were discussed with the patient. All questions were answered and informed consent was obtained. Patient identification and proposed procedure were verified by the physician, the nurse and the anesthesiologist in the procedure room. Mental Status Examination: alert and oriented. Airway Examination: normal oropharyngeal airway and neck mobility. Respiratory Examination: clear to auscultation. CV Examination: normal. Prophylactic Antibiotics: The patient does not require prophylactic antibiotics. Prior Anticoagulants: The patient has taken no previous anticoagulant or antiplatelet agents. ASA Grade Assessment: II - A patient with mild systemic disease. After reviewing the risks and benefits, the patient was deemed in satisfactory condition to undergo the procedure. The anesthesia plan was to use monitored anesthesia care (MAC). Immediately prior to administration of medications, the patient was re-assessed for adequacy to receive sedatives. The heart rate, respiratory rate, oxygen saturations, blood pressure, adequacy of pulmonary ventilation, and response to care were monitored throughout the procedure. The physical status of the patient was re-assessed after the procedure. The Colonoscope was introduced through the anus and advanced to the terminal ileum, with identification of the appendiceal orifice and IC valve. The colonoscopy was performed without difficulty. The patient tolerated the procedure well. The quality of the bowel preparation was good. The terminal ileum, ileocecal valve, appendiceal orifice, and rectum were photographed. Scope insertion time was 2 minutes. Scope withdrawal time was 8 minutes. The total duration of the procedure was 12 minutes. Findings: The perianal and digital rectal examinations were normal. The terminal ileum appeared normal. A 5 mm polyp was found in the sigmoid colon. The polyp was sessile. The polyp was removed with a cold snare. Resection and retrieval were complete. Verification of patient identification for the specimen was done by the physician and nurse using the patient's name, date and medical record number. Estimated blood loss was minimal. Non-bleeding external and internal hemorrhoids were found during retroflexion. The hemorrhoids were medium-sized. Impression: - The examined portion of the ileum was normal. - One 5 mm polyp in the sigmoid colon, removed with a cold snare. Resected and retrieved. - Non-bleeding external and internal hemorrhoids. Recommendation: - Patient has a contact number available for emergencies. The signs and symptoms of potential delayed complications were discussed with the patient. Return to normal activities tomorrow. Written discharge instructions were provided to the patient. - High fiber diet. - Continue present medications. - Miralax 1 capful (17 grams) in 8 ounces of water PO daily for atleast 7 days and then adjust dose to have one to two soft bowel movements daily. - Await pathology results. - Repeat colonoscopy in 5-10 years for surveillance based on pathology results. - Telephone GI clinic for pathology results in 2 weeks. - Return to GI clinic if persistent symptoms or new symptoms. - Return to primary care physician. Procedure Code(s): --- Professional --- 13585, Colonoscopy, flexible; with removal of tumor(s), polyp(s), or other lesion(s) by snare technique Diagnosis Code(s): --- Professional --- Z12.11, Encounter for screening for malignant neoplasm of colon K64.8, Other hemorrhoids K63.5, Polyp of colon CPT copyright 2019 [employer]. All rights reserved. The codes documented in this report are preliminary and upon nurse practitioner manager review may be revised to meet current compliance requirements. Boom Carrasco MD Boom Carrasco MD 03/20/2021 1:34:37 PM Electronically signed by Boom Carrasco MD Number of Addenda: 0 Note Initiated On: 03/20/2021 12:55 PM Estimated Blood Loss: Estimated blood loss was minimal.
[2021-03-20 13:40] VITALS: BP 101/70
== END 2021-03-20 13:52 | disposition home or self-care (01) ==
LOC: M OPP 11:42
PROVIDERS: ATTEND Internal Medicine Gastroenterology
DX: Z12.11 Encounter for screening for malignant neoplasm of colon (principal); K63.5 Polyp of colon; K64.8 Other hemorrhoids; I10 Essential (primary) hypertension; I71.2 Thoracic aortic aneurysm, without rupture; F41.9 Anxiety disorder, unspecified; F32.A Depression, unspecified; Z80.0 Family history of malignant neoplasm of digestive organs; Z88.0 Allergy status to penicillin; Z88.1 Allergy status to other antibiotic agents; Z88.2 Allergy status to sulfonamides; Z79.899 Other long term (current) drug therapy; Z98.84 Bariatric surgery status

== ENCOUNTER → 2021-03-29 | Outpatient (CLI) | payer OTHER ==
[~2021-03-29] MED LIST changes: -NS 1,000 ML IV ONE
== END ==
LOC: M LABSMTC 11:27
PROVIDERS: ATTEND Pediatrics
DX: Z11.52 Encounter for screening for COVID-19 (principal)

== ENCOUNTER → 2021-07-20 | Outpatient (CLI) | payer OTHER ==
[~2021-07-20] MED LIST changes: +LOSA50TA28 PO; -LOSA50TA88 PO
[2021-07-20 13:36] LABS: BASO % 0.6 % (0.0-1.0); EOS # 0.2 10^3/uL (0.0-0.5); EOS % 2.9 % (0.0-3.0); HEMATOCRIT 40.7 % (36.0-47.0); HEMOGLOBIN 13.8 g/dl (12.0-15.5); LYMPH # 1.8 10^3/uL (1.5-5.0); MEAN CORPUSCULAR HEMOGLOBIN 31.4 pg (27.0-33.0); MEAN CORPUSCULAR HGB CONC 33.9 g/dl (32.0-36.5); MEAN CORPUSCULAR VOLUME 92.7 fl (80.0-96.0); MONO # 0.3 10^3/uL (0.0-0.8); NEUTROPHILS # 2.8 10^3/uL (1.5-8.5); NEUTROPHILS % 55.1 % (36.0-66.0); PLATELET COUNT, AUTOMATED 227 10^3/uL (150-450); RED BLOOD COUNT 4.39 10^6/uL (4.00-5.40); WHITE BLOOD COUNT 5.2 10^3/uL (4.0-10.0)
[2021-07-20 14:59] LABS: ALBUMIN 3.7 GM/DL (3.2-5.2); ALT/SGPT 19 U/L (12-78); BILIRUBIN,TOTAL 0.3 MG/DL (0.2-1.0); BLOOD UREA NITROGEN 12 MG/DL (7-18); CARBON DIOXIDE LEVEL 27 MEQ/L (21-32); CHLORIDE LEVEL 112 MEQ/L (98-107); CHOLESTEROL LEVEL 166 MG/DL (<200); CHOLESTEROL RISK RATIO 2.813 (<5); CREATININE FOR GFR 0.78 MG/DL (0.55-1.30); FREE T4 0.99 NG/DL (0.76-1.46); GLOMERULAR FILTRATION RATE > 60.0 (>58); GLUCOSE, FASTING 83 MG/DL (70-100); HDL CHOLESTEROL 59 MG/DL (>40); IRON (FE) 81 UG/DL (50-170); LDL CHOLESTEROL 90 MG/DL (<100); NON-HDL-C 107 MG/DL; PERCENT SATURATION 29.7 % (13.2-45.0); POTASSIUM SERUM 4.4 MEQ/L (3.5-5.1); SODIUM LEVEL 142 MEQ/L (136-145); TOTAL IRON BINDING CAPACITY 273 UG/DL (250-450); TOTAL PROTEIN 6.7 GM/DL (6.4-8.2); TRIGLYCERIDES LEVEL 84 MG/DL (<150); VITAMIN B12 LEVEL 334 PG/ML (247-911)
== END ==
LOC: M PLALAB 08:30
PROVIDERS: ATTEND Nurse Practitioner Adult Health
DX: Z98.84 Bariatric surgery status (principal)

== ENCOUNTER → 2021-08-21 | Outpatient (CLI) | payer OTHER | LOC: M PLAIMG 08:39 | PROVIDERS: ATTEND Family Medicine | DX: R07.81 Pleurodynia (principal); R10.11 Right upper quadrant pain; S22.31XA Fracture of one rib, right side, initial encounter for closed fracture; Y92.9 Unspecified place or not applicable; Y93.9 Activity, unspecified; Y99.9 Unspecified external cause status ==

== ENCOUNTER → 2021-09-13 | Outpatient (CLI) | payer OTHER | LOC: M RAD 07:47 | PROVIDERS: ATTEND Family Medicine | DX: R10.11 Right upper quadrant pain (principal) ==

== ENCOUNTER → 2021-11-01 | Outpatient (CLI) | payer OTHER ==
[~2021-11-01] MED LIST changes: +ISOVUE-370 76% 100ML VIAL As Ordered ONE
== END ==
LOC: M RAD 10:47
PROVIDERS: ATTEND Internal Medicine Cardiovascular Disease
DX: I71.4 Abdominal aortic aneurysm, without rupture (principal)
CPT/HCPCS: 71275; Q9967

== ENCOUNTER → 2021-11-13 | Outpatient (CLI) | payer OTHER ==
[~2021-11-13] MED LIST changes: -ISOVUE-370 76% 100ML VIAL As Ordered ONE
== END ==
LOC: M PLAIMG 12:41
PROVIDERS: ATTEND Nurse Practitioner Adult Health
DX: M25.572 Pain in left ankle and joints of left foot (principal)

== ENCOUNTER → 2021-11-21 | Outpatient (CLI) | payer OTHER | LOC: M WHC 13:50 | PROVIDERS: ATTEND Nurse Practitioner Adult Health | DX: Z12.31 Encounter for screening mammogram for malignant neoplasm of breast (principal); Z13.820 Encounter for screening for osteoporosis; M85.88 Other specified disorders of bone density and structure, other site; M85.851 Other specified disorders of bone density and structure, right thigh ==

== ENCOUNTER → 2022-02-15 | Outpatient (CLI) | payer OTHER ==
[2022-02-15 14:04] LABS: BASO % 0.5 % (0.0-1.0); EOS # 0.2 10^3/uL (0.0-0.5); EOS % 3.9 % (0.0-3.0); HEMATOCRIT 38.6 % (36.0-47.0); HEMOGLOBIN 12.9 g/dl (12.0-15.5); LYMPH # 1.6 10^3/uL (1.5-5.0); LYMPH % 36.3 % (24.0-44.0); MEAN CORPUSCULAR HEMOGLOBIN 31.6 pg (27.0-33.0); MEAN CORPUSCULAR HGB CONC 33.4 g/dl (32.0-36.5); MEAN CORPUSCULAR VOLUME 94.6 fl (80.0-96.0); MONO # 0.3 10^3/uL (0.0-0.8); MONO % 6.5 % (2.0-8.0); NEUTROPHILS # 2.3 10^3/uL (1.5-8.5); NEUTROPHILS % 52.6 % (36.0-66.0); PLATELET COUNT, AUTOMATED 210 10^3/uL (150-450); RED BLOOD COUNT 4.08 10^6/uL (4.00-5.40); WHITE BLOOD COUNT 4.3 10^3/uL (4.0-10.0)
[2022-02-15 14:17] LABS: ALBUMIN 3.6 GM/DL (3.2-5.2); ALT/SGPT 21 U/L (12-78); BILIRUBIN,TOTAL 0.4 MG/DL (0.2-1.0); BLOOD UREA NITROGEN 12 MG/DL (7-18); CARBON DIOXIDE LEVEL 29 MEQ/L (21-32); CHLORIDE LEVEL 107 MEQ/L (98-107); CHOLESTEROL LEVEL 178 MG/DL (<200); CHOLESTEROL RISK RATIO 2.405 (<5); CREATININE FOR GFR 0.86 MG/DL (0.55-1.30); FERRITIN 11 NG/ML (8-252); FREE T4 1.08 NG/DL (0.76-1.46); GLOMERULAR FILTRATION RATE > 60.0 (>58); GLUCOSE, FASTING 82 MG/DL (70-100); HDL CHOLESTEROL 74 MG/DL (>40); IRON (FE) 114 UG/DL (50-170); LDL CHOLESTEROL 89 MG/DL (<100); NON-HDL-C 104 MG/DL; PERCENT SATURATION 42.9 % (13.2-45.0); POTASSIUM SERUM 4.5 MEQ/L (3.5-5.1); SODIUM LEVEL 140 MEQ/L (136-145); TOTAL IRON BINDING CAPACITY 266 UG/DL (250-450); TOTAL PROTEIN 6.6 GM/DL (6.4-8.2); TRIGLYCERIDES LEVEL 77 MG/DL (<150)
[2022-02-15 14:42] LABS: TOTAL 25(OH) VITAMIN D 32.5 NG/ML (30.0-100.0); VITAMIN B12 LEVEL 407 PG/ML (247-911)
[2022-02-16 07:08] LABS: FOLATE 15.1 ng/mL (>3.0)
== END ==
LOC: M PLAIMG 10:17
PROVIDERS: ATTEND Physician Assistant
DX: M76.62 Achilles tendinitis, left leg (principal)

== ENCOUNTER → 2022-04-24 | Outpatient (CLI) | payer OTHER | LOC: M PLAIMG 14:47 | PROVIDERS: ATTEND Family Medicine | DX: G43.909 Migraine, unspecified, not intractable, without status migrainosus (principal) ==

== ENCOUNTER → 2022-06-25 | Outpatient (CLI) | payer OTHER | LOC: M RAD 08:03 | PROVIDERS: ATTEND Physician Assistant | DX: J32.8 Other chronic sinusitis (principal) ==

== ENCOUNTER → 2022-08-14 | Outpatient (CLI) | payer OTHER ==
[2022-08-14 14:11] LABS: BASO % 0.5 % (0.0-1.0); EOS # 0.1 10^3/uL (0.0-0.5); EOS % 2.1 % (0.0-3.0); HEMATOCRIT 43.7 % (36.0-47.0); HEMOGLOBIN 13.8 g/dl (12.0-15.5); LYMPH % 32.8 % (24.0-44.0); MEAN CORPUSCULAR HEMOGLOBIN 31.3 pg (27.0-33.0); MEAN CORPUSCULAR HGB CONC 31.6 g/dl (32.0-36.5); MEAN CORPUSCULAR VOLUME 99.1 fl (80.0-96.0); MONO # 0.4 10^3/uL (0.0-0.8); MONO % 6.4 % (2.0-8.0); NEUTROPHILS # 3.5 10^3/uL (1.5-8.5); NEUTROPHILS % 57.9 % (36.0-66.0); PLATELET COUNT, AUTOMATED 236 10^3/uL (150-450); RED BLOOD COUNT 4.41 10^6/uL (4.00-5.40); WHITE BLOOD COUNT 6.1 10^3/uL (4.0-10.0)
[2022-08-14 14:24] LABS: ALBUMIN 3.9 G/DL (3.2-5.2); ALKALINE PHOSPHATASE 70 U/L (46-116); ALT/SGPT 14 U/L (7.0-40); AST/SGOT 13 U/L (<34); BILIRUBIN,TOTAL 0.4 MG/DL (0.3-1.2); BLOOD UREA NITROGEN 13 MG/DL (9-23); CALCIUM LEVEL 8.8 MG/DL (8.5-10.1); CARBON DIOXIDE LEVEL 29 MMOL/L (20-31); CHLORIDE LEVEL 105 MMOL/L (98-107); CREATININE FOR GFR 0.82 MG/DL (0.55-1.30); GLOMERULAR FILTRATION RATE > 60.0 (>58); GLUCOSE, FASTING 78 MG/DL (60-100); IRON (FE) 97 UG/DL (50-170); PERCENT SATURATION 35.4 % (13.2-45.0); POTASSIUM SERUM 4.7 MMOL/L (3.5-5.1); SODIUM LEVEL 139 MMOL/L (136-145); TOTAL IRON BINDING CAPACITY 274 UG/DL (250-425); TOTAL PROTEIN 6.6 G/DL (5.7-8.2)
[2022-08-14 14:27] LABS: FERRITIN 21.7 NG/ML (7.3-270.7)
[2022-08-14 14:30] LABS: FOLATE 14.9 NG/ML (>5.4); VITAMIN B12 LEVEL 345 PG/ML (211-911)
== END ==
LOC: M PLALAB 10:05
PROVIDERS: ATTEND Family Medicine
DX: M25.511 Pain in right shoulder (principal)

== ENCOUNTER 2022-09-05 07:40 | Day surgery (SDC) | payer OTHER ==
[~2022-09-05] VITALS: Ht 160 cm; Wt 71.8 kg
[~2022-09-05 07:40] MED LIST changes: +AIMO70IN2 SQ; +ALEN70TA82 PO; +ASPI81TA26 PO; -BUSP10TA; +BUSP10TA PO; +CALC600T60 PO; +CETI10CH PO; +DICL1GEL3 TOP; +FLON1SPR; +IRON65TA2 PO; +KETOROLAC 60MG 2ML VIAL As Ordered ONE; +LEXA1TAB2 PO; +METO50TA7 PO; +MIDAZOLAM INJ 2MG/2ML VIAL As Ordered ONE; +OMEP1CAP73 PO; +ONDA-83 PO; +ONDANSETRON 4MG 2ML VIAL As Ordered ONE; +ROCURONIUM BROMIDE 50MG/5ML VIAL As Ordered ONE; +UBRO50TA PO; +VITA-243 PO; +VITA100093 PO; +fentaNYL 100 MCG/2 ML INJECTION As Ordered ONE; +propofoL 200 MG/20 ML VIAL As Ordered ONE
[2022-09-05] MEDS ORDERED: SCOPOLAMINE 1MG TRANSDERMAL PATCH TOP ONE (08:20)
[2022-09-05] MEDS ORDERED: LIDOCAINE W/EPINEPHRINE 1% 20ML VIAL As Ordered ONE (09:08)
[2022-09-05] MEDS ORDERED: METHYLENE BLUE 0.5% (5MG/ML) 10 ML AMP (PROVAYBLUE) As Ordered ONE (09:08)
[2022-09-05] MEDS ORDERED: OXYMETAZOLINE 0.05% NASAL SPRAY (AFRIN) As Ordered ONE (09:09)
[2022-09-05] MEDS ORDERED: COCAINE 4% 4ML NASAL SOLUTION BTL As Ordered ONE (09:09)
[2022-09-05] MEDS ORDERED: LIDOCAINE 2% 100MG/5ML SDV (FOR ANES.) As Ordered ONE (09:27)
[2022-09-05] MEDS ORDERED: LR 1,000 ML IV SCH ×2 (09:40→12:10)
[2022-09-05] MEDS ORDERED: ACETAMINOPHEN 1000MG 100ML IV BAG As Ordered ONE (10:04)
[2022-09-05] MEDS ORDERED: ePHEDrine SULFATE 25 MG/5 ML(5MG/ML) SYRINGE As Ordered ONE (10:15)
[2022-09-05] MEDS ORDERED: SUGAMMADEX SODIUM 500 MG/5 ML VIAL (BRIDION) As Ordered ONE (11:08)
[2022-09-05] MEDS ORDERED: oxyCODONE 5MG TAB PO PRN (11:20)
[2022-09-05] MEDS ORDERED: fentaNYL 100 MCG/2 ML INJECTION IV PRN (11:20)
[2022-09-05] MEDS ORDERED: MORPHINE 2 MG/ML 1ML VIAL IV PRN (11:20)
[2022-09-05] MEDS ORDERED: ONDANSETRON 4MG 2ML VIAL IV PRN ×2 (11:20→12:15)
[2022-09-05] MEDS ORDERED: MORPHINE 10 MG/ML 1ML VIAL IV PRN (12:10)
[2022-09-05] MEDS ORDERED: ANEXSIA, NORCO 7.5MG/325MG TABLET(HYDROCODONE/APAP) PO PRN (12:10)
[2022-09-05] MEDS ORDERED: OXYMETAZOLINE 0.05% NASAL SPRAY (AFRIN) STA (12:18)
[2022-09-05 13:45] VITALS: BP 123/77
== END 2022-09-05 14:09 | disposition home or self-care (01) ==
LOC: M SDC 07:40
PROVIDERS: ATTEND Otolaryngology
DX: J32.9 Chronic sinusitis, unspecified (principal); J34.2 Deviated nasal septum; J34.3 Hypertrophy of nasal turbinates; I10 Essential (primary) hypertension; F41.0 Panic disorder [episodic paroxysmal anxiety]; F32.A Depression, unspecified; I35.2 Nonrheumatic aortic (valve) stenosis with insufficiency; Z88.2 Allergy status to sulfonamides; Z88.0 Allergy status to penicillin; Z88.1 Allergy status to other antibiotic agents; Z79.899 Other long term (current) drug therapy; Z79.51 Long term (current) use of inhaled steroids; Z98.84 Bariatric surgery status
CPT/HCPCS: 30140; 30520; 31259; 31267; 31296; 61782; 88305; 88311; C9143; J0131; J1100; J2250; J2405; J3010

== ENCOUNTER → 2022-10-07 | Outpatient (CLI) | payer OTHER ==
[~2022-10-07] MED LIST changes: -KETOROLAC 60MG 2ML VIAL As Ordered ONE; -MIDAZOLAM INJ 2MG/2ML VIAL As Ordered ONE; -ONDANSETRON 4MG 2ML VIAL As Ordered ONE; -ROCURONIUM BROMIDE 50MG/5ML VIAL As Ordered ONE; -fentaNYL 100 MCG/2 ML INJECTION As Ordered ONE; -propofoL 200 MG/20 ML VIAL As Ordered ONE
== END ==
LOC: M PLAIMG 08:36
PROVIDERS: ATTEND Orthopaedic Surgery
DX: M67.813 Other specified disorders of tendon, right shoulder (principal)

== ENCOUNTER → 2023-01-24 | Outpatient (CLI) | payer OTHER ==
[~2023-01-24] MED LIST changes: +DICL100G10 TOP; -DICL1GEL3 TOP
[2023-01-24 11:53] LABS: BASO % 0.4 % (0.0-1.0); EOS # 0.1 10^3/uL (0.0-0.5); EOS % 2.2 % (0.0-3.0); HEMATOCRIT 40.2 % (36.0-47.0); HEMOGLOBIN 13.5 g/dl (12.0-15.5); LYMPH # 1.7 10^3/uL (1.5-5.0); LYMPH % 38.4 % (24.0-44.0); MEAN CORPUSCULAR HGB CONC 33.6 g/dl (32.0-36.5); MEAN CORPUSCULAR VOLUME 95.3 fl (80.0-96.0); MONO # 0.3 10^3/uL (0.0-0.8); MONO % 6.6 % (2.0-8.0); NEUTROPHILS # 2.4 10^3/uL (1.5-8.5); NEUTROPHILS % 52.2 % (36.0-66.0); PLATELET COUNT, AUTOMATED 217 10^3/uL (150-450); RED BLOOD COUNT 4.22 10^6/uL (4.00-5.40); WHITE BLOOD COUNT 4.5 10^3/uL (4.0-10.0)
[2023-01-24 12:24] LABS: ALBUMIN 3.7 G/DL (3.2-5.2); ALKALINE PHOSPHATASE 66 U/L (46-116); ALT/SGPT 11 U/L (7.0-40); AST/SGOT < 8 U/L (<34); BILIRUBIN,TOTAL 0.5 MG/DL (0.3-1.2); BLOOD UREA NITROGEN 8 MG/DL (9-23); CARBON DIOXIDE LEVEL 28 MMOL/L (20-31); CHLORIDE LEVEL 108 MMOL/L (98-107); CREATININE FOR GFR 0.83 MG/DL (0.55-1.30); GLOMERULAR FILTRATION RATE > 60.0 (>58); GLUCOSE, FASTING 75 MG/DL (60-100); IRON (FE) 128 UG/DL (50-170); PERCENT SATURATION 50.2 % (13.2-45.0); POTASSIUM SERUM 4.9 MMOL/L (3.5-5.1); SODIUM LEVEL 144 MMOL/L (136-145); TOTAL IRON BINDING CAPACITY 255 UG/DL (250-425); TOTAL PROTEIN 6.1 G/DL (5.7-8.2)
[2023-01-24 12:26] LABS: FERRITIN 19.1 NG/ML (7.3-270.7); FOLATE 16.2 NG/ML (>5.4); VITAMIN B12 LEVEL 280 PG/ML (211-911)
== END ==
LOC: M PLALAB 08:56
PROVIDERS: ATTEND Family Medicine
DX: Z01.818 Encounter for other preprocedural examination (principal)

== ENCOUNTER → 2023-01-31 | Outpatient (CLI) | payer OTHER | LOC: M WHC 08:02 | PROVIDERS: ATTEND Family Medicine | DX: Z12.31 Encounter for screening mammogram for malignant neoplasm of breast (principal) ==

== ENCOUNTER → 2023-03-13 | Outpatient (CLI) | payer OTHER ==
[2023-03-13 16:32] LABS: CHOLESTEROL RISK RATIO 2.74 (<5)
== END ==
LOC: M PLALAB 08:50
PROVIDERS: ATTEND Family Medicine
DX: I10 Essential (primary) hypertension (principal)

== ENCOUNTER → 2023-05-07 | Outpatient (REF) | payer OTHER, MEDICAID | LOC: M LAB REF 17:01 | PROVIDERS: ATTEND Physician Assistant | DX: J01.90 Acute sinusitis, unspecified (principal) ==

== ENCOUNTER → 2023-05-29 | Outpatient (CLI) | payer OTHER, MEDICAID | LOC: M SOG 07:51 | PROVIDERS: ATTEND Orthopaedic Surgery | DX: M54.2 Cervicalgia (principal) ==

== ENCOUNTER → 2023-06-03 | Outpatient (CLI) | payer OTHER, MEDICAID | LOC: M SOG 08:02 | PROVIDERS: ATTEND Orthopaedic Surgery | DX: M54.2 Cervicalgia (principal) ==

== ENCOUNTER → 2023-06-12 | Outpatient (CLI) | payer OTHER | LOC: M PLAIMG 13:39 | PROVIDERS: ATTEND Orthopaedic Surgery | DX: M54.2 Cervicalgia (principal) ==

== ENCOUNTER → 2023-06-25 | Outpatient (REF) | payer OTHER | LOC: M LAB REF 18:05 | PROVIDERS: ATTEND Family Medicine | DX: L82.0 Inflamed seborrheic keratosis (principal) ==

== ENCOUNTER → 2023-08-25 | Outpatient (CLI) | payer OTHER ==
[2023-08-25 11:08] LABS: BASO % 0.4 % (0.0-1.0); EOS # 0.1 10^3/uL (0.0-0.5); EOS % 1.5 % (0.0-3.0); HEMOGLOBIN 13.5 g/dl (12.0-15.5); LYMPH # 1.4 10^3/uL (1.5-5.0); LYMPH % 29.7 % (24.0-44.0); MEAN CORPUSCULAR HEMOGLOBIN 32.8 pg (27.0-33.0); MEAN CORPUSCULAR HGB CONC 34.6 g/dl (32.0-36.5); MEAN CORPUSCULAR VOLUME 94.9 fl (80.0-96.0); MONO # 0.3 10^3/uL (0.0-0.8); MONO % 6.9 % (2.0-8.0); NEUTROPHILS # 2.9 10^3/uL (1.5-8.5); NEUTROPHILS % 61.3 % (36.0-66.0); PLATELET COUNT, AUTOMATED 213 10^3/uL (150-450); RED BLOOD COUNT 4.11 10^6/uL (4.00-5.40); WHITE BLOOD COUNT 4.8 10^3/uL (4.0-10.0)
[2023-08-25 11:35] LABS: C REACTIVE PROTEIN QUANTITATIV < 0.40 MG/DL (<1.0)
[2023-08-25 11:36] LABS: CK-MB VALUE MASS < 1.0 NG/ML (<3.6); CPK CREATINE PHOSPHOKINASE 62 U/L (34-145); IRON (FE) 100 UG/DL (50-170); MB/CK RELATIVE INDEX 1.61 (< OR =4); PERCENT SATURATION 33.2 % (13.2-45.0); TOTAL IRON BINDING CAPACITY 301 UG/DL (250-425)
[2023-08-25 11:37] LABS: ALBUMIN 3.9 G/DL (3.2-5.2); ALKALINE PHOSPHATASE 72 U/L (46-116); ALT/SGPT 18 U/L (7.0-40); AST/SGOT 13 U/L (<34); BILIRUBIN,TOTAL 0.5 MG/DL (0.3-1.2); BLOOD UREA NITROGEN 14 MG/DL (9-23); CALCIUM LEVEL 8.9 MG/DL (8.5-10.1); CARBON DIOXIDE LEVEL 27 MMOL/L (20-31); CHLORIDE LEVEL 109 MMOL/L (98-107); CREATININE FOR GFR 0.76 MG/DL (0.55-1.30); GLOMERULAR FILTRATION RATE > 60.0 (>58); GLUCOSE, FASTING 82 MG/DL (60-100); SODIUM LEVEL 141 MMOL/L (136-145); TOTAL PROTEIN 6.4 G/DL (5.7-8.2)
[2023-08-25 11:40] LABS: FERRITIN 6.5 NG/ML (7.3-270.7)
[2023-08-25 11:41] LABS: VITAMIN B12 LEVEL 387 PG/ML (211-911)
== END ==
LOC: M RAD 10:30
PROVIDERS: ATTEND Family Medicine
DX: R06.02 Shortness of breath (principal)

== ENCOUNTER → 2023-09-17 | Outpatient (CLI) | payer OTHER | LOC: M SOG 10:41 | PROVIDERS: ATTEND Orthopaedic Surgery | DX: M25.511 Pain in right shoulder (principal); M75.111 Incomplete rotator cuff tear or rupture of right shoulder, not specified as traumatic ==

== ENCOUNTER → 2023-09-29 | Outpatient (CLI) | payer OTHER | LOC: M CARPUL 10:46 | PROVIDERS: ATTEND Family Medicine | DX: R06.02 Shortness of breath (principal) ==

== ENCOUNTER 2023-10-30 01:48 | Emergency (ER) | payer OTHER ==
[~2023-10-30] VITALS: Ht 162.6 cm; Wt 77.6 kg
[2023-10-30 02:30] VITALS: TEMP 98
[2023-10-30] MEDS: FAMOTIDINE IV BAG 20 MG in IV 1 EA IV ONE (02:37)
[2023-10-30] MEDS: diphenhydrAMINE 50MG/ML VIAL IV STA (02:37)
[2023-10-30] MEDS: dexAMETHasone 20MG/5ML VIAL IV ONE (02:37)
[2023-10-30 03:30] VITALS: BP 122/81; O2SAT 100
== END 2023-10-30 04:04 | disposition home or self-care (01) ==
LOC: M ED 01:48
DX: L25.8 Unspecified contact dermatitis due to other agents (principal); T50.905A Adverse effect of unspecified drugs, medicaments and biological substances, initial encounter; G47.33 Obstructive sleep apnea (adult) (pediatric); F41.9 Anxiety disorder, unspecified; Z88.0 Allergy status to penicillin; Z88.1 Allergy status to other antibiotic agents; Z88.8 Allergy status to other drugs, medicaments and biological substances; Z79.1 Long term (current) use of non-steroidal anti-inflammatories (NSAID); Z79.899 Other long term (current) drug therapy
CPT/HCPCS: 96374; 99284; J1100; J1200; S0028

== ENCOUNTER → 2023-10-31 | Outpatient (CLI) | payer OTHER ==
[~2023-10-31] MED LIST changes: +ISOVUE-300 61% 100ML VIAL As Ordered ONE; +LIDOCAINE 1% MDV 20ML VIAL As Ordered ONE; +PROHANCE 279.3MG/ML 5ML VIAL As Ordered ONE
== END ==
LOC: M RAD 08:40
PROVIDERS: ATTEND Orthopaedic Surgery
DX: M75.111 Incomplete rotator cuff tear or rupture of right shoulder, not specified as traumatic (principal); X58.XXXA Exposure to other specified factors, initial encounter; Y92.9 Unspecified place or not applicable; Y93.9 Activity, unspecified
CPT/HCPCS: 23350; 73223; 77002; A9576; Q9967

== ENCOUNTER → 2023-11-06 | Outpatient (CLI) | payer OTHER ==
[~2023-11-06] MED LIST changes: -ISOVUE-300 61% 100ML VIAL As Ordered ONE; -LIDOCAINE 1% MDV 20ML VIAL As Ordered ONE; -PROHANCE 279.3MG/ML 5ML VIAL As Ordered ONE
== END ==
LOC: M SOG 07:56
PROVIDERS: ATTEND Orthopaedic Surgery
DX: M25.511 Pain in right shoulder (principal); M75.111 Incomplete rotator cuff tear or rupture of right shoulder, not specified as traumatic

== ENCOUNTER → 2024-01-23 | Outpatient (CLI) | payer OTHER ==
[~2024-01-23] MED LIST changes: +GABA-1490 PO; -GABA600T4 PO
== END ==
LOC: M WHC 10:22
PROVIDERS: ATTEND Family Medicine
DX: Z12.31 Encounter for screening mammogram for malignant neoplasm of breast (principal); R92.333 Mammographic heterogeneous density, bilateral breasts

== ENCOUNTER → 2024-02-23 | Outpatient (REF) | payer OTHER, MEDICAID | LOC: M LAB REF 17:07 | PROVIDERS: ATTEND Family Medicine | DX: N23 Unspecified renal colic (principal) ==

== ENCOUNTER → 2024-03-16 | Outpatient (REF) | payer OTHER, MEDICAID | LOC: M LAB REF 16:58 | PROVIDERS: ATTEND Family Medicine | DX: J06.9 Acute upper respiratory infection, unspecified (principal) ==

== ENCOUNTER → 2024-03-17 | Outpatient (CLI) | payer OTHER | LOC: M RAD 09:10 | PROVIDERS: ATTEND Family Medicine | DX: N23 Unspecified renal colic (principal) ==

== ENCOUNTER → 2024-06-29 | Outpatient (CLI) | payer OTHER | LOC: M PLAIMG 10:02 | PROVIDERS: ATTEND Nurse Practitioner Adult Health | DX: R06.02 Shortness of breath (principal) ==

== ENCOUNTER → 2024-07-15 | Outpatient (CLI) | payer OTHER ==
[~2024-07-15] MED LIST changes: +METHACHOLINE KIT (6 VIAL.NEB PREMIX) INH ONE
== END ==
LOC: M CARPUL 09:43
PROVIDERS: ATTEND Nurse Practitioner Adult Health
DX: R06.02 Shortness of breath (principal)
CPT/HCPCS: 94070; 95070; J7674

== ENCOUNTER → 2024-08-26 | Outpatient (CLI) | payer OTHER ==
[~2024-08-26] MED LIST changes: +ISOVUE-370 76% 100ML VIAL As Ordered ONE; -METHACHOLINE KIT (6 VIAL.NEB PREMIX) INH ONE
== END ==
LOC: M RAD 16:33
PROVIDERS: ATTEND Physician Assistant
DX: R68.81 Early satiety (principal)
CPT/HCPCS: 74177; Q9967

== ENCOUNTER → 2025-04-07 | Outpatient (CLI) | payer OTHER ==
[~2025-04-07] MED LIST changes: +AMIT10TA11 PO; -AMIT10TA7 PO; -FLOM0.4C39 PO; -ISOVUE-370 76% 100ML VIAL As Ordered ONE; +TAMS-18 PO
== END ==
LOC: M WHC 13:12
PROVIDERS: ATTEND Nurse Practitioner Family
DX: R93.422 Abnormal radiologic findings on diagnostic imaging of left kidney (principal); R93.421 Abnormal radiologic findings on diagnostic imaging of right kidney; Z87.442 Personal history of urinary calculi

== ENCOUNTER → 2025-04-07 | Outpatient (CLI) | payer OTHER | LOC: M WHC 13:13 | PROVIDERS: ATTEND Family Medicine | DX: N95.0 Postmenopausal bleeding (principal) ==

== ENCOUNTER → 2025-04-12 | Outpatient (REF) | payer OTHER ==
[2025-04-12 13:42] LABS: AMORPHOUS SEDIMENT SMALL (NEGATIVE); APPEARANCE, URINE CLOUDY (CLEAR); BACTERIA, URINE AUTO 1+ (NEGATIVE); BILIRUBIN, URINE AUTO NEGATIVE (NEGATIVE); BLOOD, URINE BLOOD NEGATIVE (NEGATIVE); CALCIUM OXALATE CRYSTALS LARGE; GLUCOSE, URINE (UA) AUTO NEGATIVE (NEGATIVE); KETONE, URINE AUTO TRACE mg/dL (NEGATIVE); LEUKOCYTE ESTERASE, URINE AUTO 1+ (NEGATIVE); MUCUS, URINE SMALL (NEGATIVE); NITRITE, URINE AUTO NEGATIVE (NEGATIVE); PROTEIN, URINE AUTO NEGATIVE (NEGATIVE); RBC, URINE AUTO 0 /HPF (0-3); SPECIFIC GRAVITY URINE AUTO 1.021 (1.002-1.035); SQUAMOUS EPITHELIAL CELL UR AU 6 /HPF (0-6); UROBILINOGEN, URINE AUTO 4.0 mg/dL (0.0-2.0); WBC, URINE AUTO 4 /HPF (0-3)
== END ==
LOC: M SMT 12:48
PROVIDERS: ATTEND Nurse Practitioner Family
DX: R39.89 Other symptoms and signs involving the genitourinary system (principal)